=== PATIENT | female | born 1940 | race Caucasian/White ===

== ENCOUNTER 2022-10-03 20:07 | Emergency (ER) | payer OTHER ==
--- OUTSIDE RECORDS SUMMARY | 2022-10-03 20:14 | XMS REPORT | Continuity of Care Document ---
:1940 Author Organization [facility] t Address [address] [place] [address] Care Team Providers Name Role Phone [phone] Primary Care Physician Unavailable Smith Alcala Attending Clinician Unavailable BOZENA BERNAL Attending Clinician Unavailable BOZENA BERNAL Attending Clinician Unavailable Mary Martinez MA Attending Clinician Unavailable Soco [place] LVN Attending Clinician Unavailable Doctor Unassigned, [place] Attending Clinician Unavailable LINDY GOVEA Attending Clinician Unavailable RADHA GR Attending Clinician Unavailable Kamila WINTERS, Darryl Lucero Attending Clinician DRAKE HANSEN Attending Clinician Unavailable Varun Ibarra MD Attending Clinician JUAN JOSE SANCHEZ Attending Clinician Unavailable JUAN JOSE SANCHEZ Admitting Clinician Unavailable Payers Payer Name Policy Type Policy Number Effective Date Expiration Date Nayla coffey [employer] MANAGED [id number] 2022 MEDICARE PPO-TIMOTHY 00:00:00 [employer] MEDICARE PPO [id number] 2021 00:00:00 Problems Condition Condition Condition Status Onset Resolution Last Treating Co mments Source Name Details Category Date Date Treatment Clinician Date SOB SOB Disease Active 2017-04 [facility] (shortness (shortness 0-09 st of breath) of breath) 00:00: [facility] 00 l Coronary Coronary Disease Active [facility] di artery artery 9-19 st disease disease 00:00: [facility]ospita involving involving [place] coronary coronary artery of artery of [place] heart heart without without angina angina pectoris pectoris Coronary Coronary Disease Active [facility] artery artery 9-19 st disease disease 00:00: [facility]ospita involving involving 00 [place] coronary coronary artery of artery of [place] heart heart without without angina angina pectoris pectoris Transient Transient Disease Active [facility] cerebral cerebral 9-19 st ischemia ischemia 00:00: Hospit a 00 l Paroxysmal Paroxysmal Disease Active M [facility] atrial atrial 6-23 st fibrillati fibrillati 00:00: [facility] on on 00 l CAD in CAD in Disease Active [facility] [place] 6-20 st artery artery 00:00: Hospita 00 l PAD PAD Disease Active [facility] (periphera (periphera 6-20 st l artery l artery 00:00: Hospit a disease) disease) 00 l Atrial Atrial Disease Active 2015-04 [facility] fibrillati fibrillati 0-07 st on on 00:00: Hospita 00 l Coronary Coronary Disease Active 2015-04 [facility] di arterioscl arterioscl 0-07 st erosis in erosis in 00:00: [facility] [place] 00 l artery artery Essential Essential Disease Active 2015-04 [facility] hypertensi hypertensi 0-07 st on on 00:00: Hospita 00 l Hyperlipid Hyperlipid Disease Active 2015-04 M [facility] emia emia 0-07 st 00:00: Hospita 00 l History of History of Disease Active 2015-04 M [facility] coronary coronary 0-07 st artery artery 00:00: Hospita stent stent 00 l placement placement Stroke Stroke Disease Active [facility] 6-12 st 00:00: Hospita 00 l Diabetes Diabetes Disease Active Overview: In thodi mellitus mellitus 6- Formattin st type 2, type 2, 00:00: g of this Hospi ta uncontroll uncontroll 00 note l ed, ed, might be without without different complicati complicati from the ons ons original. Overview: ICD10 Diagnosis Term Technical Support Representative Utility Other Other Disease Active [facility] malaise malaise 6-22 st and and 00:00: Hospita fatigue fatigue 00 l Benign Benign Disease Active [facility] essential essential 622 st hypertensi hypertensi 00:00: Ho spita on on 00 l Hyperlipid Hyperlipid Disease Active Overview : [facility] emia emia 6-[address] 00:00: g of this Hospita 00 note l might be different from the original. Overview: ICD10 Diagnosis Term Technical Support Representative Utility Allergies, Adverse Reactions, Alerts Allergy Allergy Status Severity Reaction(s) Onset Inactive Treating Comm ents Source Name Type Date Date Clinician Neomycin Propensi Active Rash 2016-[address] [facility] [address] [facility] adverse [facility]-Dexame reaction 00 Center s Neomycin Propensi Active 2016-[address] [facility] [facility] adverse [facility] Medical reaction 00 Center s Neomycin Propensi Active 2015-04 [facility] -Bacitra ty to 0-07 st jason-Poly adverse 00:00: Hospita myxin reaction 00 l s to drug NO KNOWN Drug Active Univers ALLERGIE Class ity of [facility] Family History Family Member Diagnosis Comments Start Date Stop Date Source Natural father [facility] Natural mother Stroke [facility] Social History Social Habit Start Date Stop Date Quantity Comments Source Gender identity [facility] Sexual orientation [facility] Exposure to 2022-09-01 2022-09-[address] [facility] SARS-CoV-2 (event) 00:00:00 10:41:00 [facility] Tobacco use and 2022-09-11 2022-09-11 Smokeless Universit y of exposure 00:00:00 00:00:00 tobacco non-user [facility] History of Social 2018-12-08 2018-12-[address] function 00:00:00 00:00:00 Hospital Alcohol intake 2018-07-25 2018-07-25 Current Alevism 00:00:00 00:00:00 non-drinker of Hospital alcohol (finding) Sex Ass[birth year] At [birth year] Ale[facility] 00:00:00 00:00:00 Hospital Smoking Status Start Date Stop Date Source Never smoked tobacco [facility] Medications Ordered Filled Start Stop Current Ordering Indication Dosage Frequency Signature Comments Components Source Medication Medication Date Date Medication? Clinician (SIG) Name Name warfarin Yes Take 1 [facility] (COUMADIN) 6-[address] 5 MG tablet 00:00: (5mg) by Ho spita 00 mouth 5 l days per week and 1 1/2 tablets (7.5mg) 2 days per week estradioL 2022-0 Yes [id number] Apply 1g Univers (ESTRACE) 5-26 vaginally ity o f 0.01 % (0.1 00:00: at bedtime [place] mg/gram) 00 2- 3 times Medic al vaginal per week Branch cream estradioL 2022-0 Yes [id number] Apply 1g Univers (ESTRACE) 5-26 vaginally ity o f 0.01 % (0.1 00:00: at bedtime [place] mg/gram) 00 2- 3 times Medic al vaginal per week Branch cream hydrALAZINE 0 Yes 10mg Take 1 Univ ers 10 mg 5-24 tablet by ity of tablet 10:45: mouth [place] 00 every 6 Medical (six) Branch hours. ferrous 2022-0 Yes Take by Univers fumarate/fo 5-24 mouth. ity of lic acid 10:45: [place] (FERROCITE- 00 Medical F ORAL) Branch psyllium Yes [facility] mouth. ity of (METAMUCIL 10:45: [place] ORAL) 00 Medical Branch vit Yes Take by [facility] C/E/Zn/diogo 5-24 mouth. ity of r/lutein/ze 10:45: [place] axan 00 Medical (PRESERVISI Branch ON AREDS-2 ORAL) docosahexae Yes Take by Uni vers noic 5-24 mouth. ity of acid/epa 10:45: [place] (FISH OIL 00 Medical ORAL) Branch PREVACID 30 0 Yes daily Unive rs MG ORAL 5-24 ity of CPDR 10:45: [place] 00 Medical Branch hydrALAZINE 0 Yes 10mg Take 1 Univ ers 10 mg 5-24 tablet by ity of tablet 10:45: mouth [place] 00 every 6 Medical (six) Branch hours. ferrous 2022-0 Yes Take by Univers fumarate/fo 5-24 mouth. ity of lic acid 10:45: [place] (FERROCITE- 00 Medical F ORAL) Branch psyllium Yes Take by Univer s husk 5-24 mouth. ity of (METAMUCIL 10:45: [place] ORAL) 00 Medical Branch vit 0 Yes Take by Univers C/E/Zn/diogo 5-24 mouth. ity of r/lutein/ze 10:45: [place] axan 00 Medical (PRESERVISI Branch ON AREDS-2 ORAL) docosahexae Yes Take by Uni vers noic 5-24 mouth. ity of acid/epa 10:45: [place] (FISH OIL 00 Medical ORAL) Branch PREVACID 30 Yes daily Unive rs MG ORAL 5-24 ity of CPDR 10:45: [place] 00 Medical Branch hydrALAZINE Yes 10mg Take 1 Univ ers 10 mg 5-24 tablet by ity of tablet 10:45: mouth [place] 00 every 6 Medical (six) Branch hours. ferrous Yes Take by Univers fumarate/fo 5-24 mouth. ity of lic acid 10:45: [place] (FERROCITE- 00 Medical F ORAL) Branch psyllium Yes Take by Univer s husk 5-24 mouth. ity of (METAMUCIL 10:45: [place] ORAL) 00 Medical Branch vit Yes Take by Univers C/E/Zn/diogo 5-24 mouth. ity of r/lutein/ze 10:45: [place] axan 00 Medical (PRESERVISI Branch ON AREDS-2 ORAL) docosahexae Yes Take by Uni vers noic 5-24 mouth. ity of acid/epa 10:45: [place] (FISH OIL 00 Medical ORAL) Branch PREVACID 30 Yes daily Unive rs MG ORAL 5-24 ity of CPDR 10:45: [place] 00 Medical Branch docusate Yes Univers 100 mg 5-24 ity of capsule 10:28: [place] [id number] Medical Branch docusate Yes Univers 100 mg 5-24 ity of capsule 10:28: [address] Branch docusate Yes Univers 100 mg 5-24 ity of capsule 10:28: [address] Branch losartan-hy Yes 1{tbl} Take 1 Un alessio drochloroth 5-24 tablet by ity of iazide 10:28: mouth [place] 100-25 mg 11 every Medical per tablet morning. Branc h losartan-hy Yes 1{tbl} Take 1 Un alessio drochloroth 5-24 tablet by ity of iazide 10:28: mouth [place] 100-25 mg 11 every Medical per tablet morning. [facility] losartan-hy Yes 1{tbl} Take 1 Un alessio drochloroth 5-24 tablet by ity of iazide 10:28: mouth [place] 100-25 mg 11 every Medical per tablet morning. [facility] h ARTHROTEC Yes ?dose?bid Uni vers 50 ORAL 5-24 ity of 10:26: [address] LIPITOR 20 Yes daily Univer s MG ORAL TAB 5-24 ity of 10:26: [address] NOVOLOG MIX Yes bid Univer s 70-30 5-24 ity of FLEXPEN SC 10:26: [address] M-VIT ORAL Yes daily Univer s 5-24 ity of 10:26: [address] ENALAPRIL Yes daily Univers MALEATE 20 5-24 ity of MG ORAL TAB 10:26: [address] ASPIRIN 81 Yes daily Univer s MG ORAL TAB 5-24 ity of 10:26: [address] ARTHROTEC Yes ?dose?bid Uni vers 50 ORAL 5-24 ity of 10:26: [address] LIPITOR 20 Yes daily Univer s MG ORAL TAB 5-24 ity of 10:26: [address] NOVOLOG MIX Yes bid Univer s 70-30 5-24 ity of FLEXPEN SC 10:26: [address] M-VIT ORAL Yes daily Univer s 5-24 ity of 10:26: [address] ENALAPRIL Yes daily Univers MALEATE 20 5-24 ity of MG ORAL TAB 10:26: [address] ASPIRIN 81 0 Yes daily Univer s MG ORAL TAB 5-24 ity of 10:26: [address] ARTHROTEC Yes ?dose?bid Uni vers 50 ORAL 5-24 ity of 10:26: [address] LIPITOR 20 Yes daily Univer s MG ORAL TAB 5-24 ity of 10:26: [address] NOVOLOG MIX 2023-0 Yes bid Univer s 70-30 5-24 ity of FLEXPEN SC 10:26: [address] M-VIT ORAL Yes daily Univer s -24 ity of 10:26: [address] ENALAPRIL Yes daily Univers MALEATE 20 5-24 ity of MG ORAL TAB 10:26: [address] ASPIRIN 81 Yes daily Univer s MG ORAL TAB -24 ity of 10:26: [address] estradioL Yes [id number] Apply 1g Univers (ESTRACE) 09-09 vaginally ity o f 0.01 % (0.1 00:00: at bedtime [place] mg/gram) 00 2-3 times Medica l vaginal per week Branch cream estradioL 2022- No [id number] Apply 1g Univers (ESTRACE) 09-09 vaginally ity of 0.01 % (0.1 00:00: 00:00 at bedtime [place] mg/gram) 00 :00 2-3 times Medica l vaginal per week Branch cream estradioL 2022- No [id number] Apply 1g Univers (ESTRACE) 09-09 vaginally ity of 0.01 % (0.1 00:00: 00:00 at bedtime [place] mg/gram) 00 :00 2-3 times Medica l vaginal per week Branch cream doxazosin 4 Yes TAKE 1/2 Un alessio mg tablet 3-20 TABLET BY ity o f 00:00: MOUTH TIMES A Medical DAY Branch doxazosin 4 0 Yes TAKE 1/2 Un alessio mg tablet 3-20 TABLET BY ity o f 00:00: MOUTH TIMES A Medical DAY Branch doxazosin 4 0 Yes TAKE 1/2 Un alessio mg tablet 3-20 TABLET BY ity o f 00:00: MOUTH TIMES A Medical DAY Branch warfarin 5 2022-0 Yes TAKE 1 Unive rs mg tablet 3-10 TABLET BY ity o f 00:00: MOUTH EVERY DAY Medical OR Branch DIRECTED BY DOCTOR OFFICE warfarin 5 2022-0 Yes TAKE 1 Unive rs mg tablet 3-10 TABLET BY ity o f 00:00: MOUTH EVERY DAY Medical OR Branch DIRECTED BY DOCTOR OFFICE warfarin 5 2023-0 Yes TAKE 1 Unive rs mg tablet 3-10 TABLET BY ity o f 00:00: MOUTH [place] 00 EVERY DAY Medical OR Branch DIRECTED BY DOCTOR OFFICE warfarin Yes Take 1 [facility] (COUMADIN) 3-[address] 5 MG tablet 00:00: (5mg) by Ho sp[facility] 00 mouth l daily warfarin 2022- No Take 1 [facility] (COUMADIN) 3-10 06-[address] 5 MG tablet 00:00: 00:00 (5mg) by H ospita 00 :00 mouth l daily warfarin 2021-04 Yes TAKE 1 [facility] (COUMADIN) 2-27 TABLET (5 st 5 MG tablet 00:00: MG TOTAL) H ospita 00 BY MOUTH l DAILY. warfarin 2021-04 Yes TAKE 1 [facility] (COUMADIN) 2-27 TABLET (5 st 5 MG tablet 00:00: MG TOTAL) H ospita 00 BY MOUTH l DAILY. warfarin 2021-04 Yes TAKE 1 [facility] (COUMADIN) 2-27 TABLET (5 st 5 MG tablet 00:00: MG TOTAL) H ospita 00 BY MOUTH l DAILY. warfarin 2021-04 Yes TAKE 1 [facility] (COUMADIN) 2-27 TABLET (5 st 5 MG tablet 00:00: MG TOTAL) H ospita 00 BY MOUTH l DAILY. warfarin 2021-04- No TAKE 1 [facility] (COUMADIN) 2-27 03-10 TABLET (5 st 5 MG tablet 00:00: 00:00 MG TOTAL) Hospita 00 :00 BY MOUTH l DAILY. warfarin 2021-04- No TAKE 1 [facility] (COUMADIN) 2-27 03-10 TABLET (5 st 5 MG tablet 00:00: 00:00 MG TOTAL) Hospita 00 :00 BY MOUTH l DAILY. warfarin 2021- No TAKE 1 [facility] (COUMADIN) 9- 12-27 TABLET (5 st 5 MG tablet 00:00: 00:00 MG TOTAL) Hospita 00 :00 BY MOUTH l DAILY. warfarin 2021- No TAKE 1 [facility] (COUMADIN) 9- 12-27 TABLET (5 st 5 MG tablet 00:00: 00:00 MG TOTAL) Hospita 00 :00 BY MOUTH l DAILY. warfarin 2021- No TAKE 1 [facility] (COUMADIN) 01-09 TABLET (5 st 5 MG tablet 00:00: 00:00 MG TOTAL) Hospita 00 :00 BY MOUTH l DAILY. warfarin 2021- No TAKE 1 [facility] (COUMADIN) 01-09 TABLET (5 st 5 MG tablet 00:00: 00:00 MG TOTAL) Hospita 00 :00 BY MOUTH l DAILY. warfarin 2021- No TAKE 1 [facility] (COUMADIN) 01-09 TABLET (5 st 5 MG tablet 00:00: 00:00 MG TOTAL) Hospita 00 :00 BY MOUTH l DAILY. warfarin 2021- No TAKE 1 [facility] (COUMADIN) 01-09 TABLET (5 st 5 MG tablet 00:00: 00:00 MG TOTAL) Hospita 00 :00 BY MOUTH l DAILY. warfarin 2021- No TAKE 1 [facility] (COUMADIN) 10-13 TABLET (5 st 5 MG tablet 00:00: 00:00 MG TOTAL) Hospita 00 :00 BY MOUTH l DAILY. warfarin 2021- No TAKE 1 [facility] (COUMADIN) 10-13 TABLET (5 st 5 MG tablet 00:00: 00:00 MG TOTAL) Hospita 00 :00 BY MOUTH l DAILY. warfarin 2021- No TAKE 1 [facility] (COUMADIN) 10-13 TABLET (5 st 5 MG tablet 00:00: 00:00 MG TOTAL) Hospita 00 :00 BY MOUTH l DAILY. warfarin 2021- No TAKE 1 [facility] (COUMADIN) 10-13 TABLET (5 st 5 MG tablet 00:00: 00:00 MG TOTAL) Hospita 00 :00 BY MOUTH l DAILY. warfarin 2021- No TAKE 1 [facility] (COUMADIN) 10-13 TABLET (5 st 5 MG tablet 00:00: 00:00 MG TOTAL) Hospita 00 :00 BY MOUTH l DAILY. warfarin 2021- No TAKE 1 [facility] (COUMADIN) 10-13 TABLET (5 st 5 MG tablet 00:00: 00:00 MG TOTAL) Hospita 00 :00 BY MOUTH l DAILY. warfarin 2021- No 5mg QD Take 1 [facility] (COUMADIN) 07-18 tablet (5 st 5 MG tablet 00:00: 00:00 mg total) Hospita 00 :00 by mouth l daily. Take 1 tablet (5mg) by mouth daily for 30 days. warfarin 2021-0 2021- No 5mg QD Take 1 [facility] (COUMADIN) 07-18 tablet (5 st 5 MG tablet 00:00: 00:00 mg total) Hospita 00 :00 by mouth l daily. Take 1 tablet (5mg) by mouth daily for 30 days. warfarin 2021-0 2021- No 5mg QD Take 1 [facility] (COUMADIN) 07-18 tablet (5 st 5 MG tablet 00:00: 00:00 mg total) Hospita 00 :00 by mouth l daily. Take 1 tablet (5mg) by mouth daily for 30 days. warfarin 2021-2021- No 5mg QD Take 1 [facility] (COUMADIN) 07-18 tablet (5 st 5 MG tablet 00:00: 00:00 mg total) Hospita 00 :00 by mouth l daily. Take 1 tablet (5mg) by mouth daily for 30 days. warfarin 2021- No 5mg QD Take 1 [facility] (COUMADIN) 07-18 tablet (5 st 5 MG tablet 00:00: 00:00 mg total) Hospita 00 :00 by mouth l daily. Take 1 tablet (5mg) by mouth daily for 30 days. warfarin 2021-2021- No 5mg QD Take 1 [facility] (COUMADIN) 07-18 tablet (5 st 5 MG tablet 00:00: 00:00 mg total) Hospita 00 :00 by mouth l daily. Take 1 tablet (5mg) by mouth daily for 30 days. warfarin 2021-0 2021- No TAKE 1 [facility] (COUMADIN) 04-[address] 5 MG tablet 00:00: 00:00 MOUTH [facility] 00 :00 EVERY DAY l DIRECTED warfarin 2021-0 2021- No TAKE 1 [facility] (COUMADIN) 04-[address] 5 MG tablet 00:00: 00:00 MOUTH [facility] 00 :00 EVERY DAY l DIRECTED warfarin 2022021- No TAKE 1 [facility] (COUMADIN) 04-[address] 5 MG tablet 00:00: 00:00 MOUTH [facility] 00 :00 EVERY DAY l DIRECTED warfarin 2021- No TAKE 1 [facility] (COUMADIN) 04-[address] 5 MG tablet 00:00: 00:00 MOUTH [facility] 00 :00 EVERY DAY l DIRECTED docusate 2020-04 Yes 100mg Q.5D Take 100 Meth jose enrique sodium 1-[address] (COLACE) 11:25: mouth 2 Hospit a 100 MG 02 (two) l capsule times a day. multivitami 2020-04 Yes 1{tbl} QD Take 1 Me thodi n with 1-[address] minerals 11:25: mouth Hospita tablet 02 daily. l cyanocobala 2020-[address] [facility] di min, 1-[address] vitamin 11:25: tongue. Hospita B-12, 02 l (VITAMIN B-12) 2,500 mcg tablet, sublingual docusate 2020-04 Yes 100mg Q.5D Take 100 Meth jose enrique sodium 1-[address] (COLACE) 11:25: mouth 2 Hospit a 100 MG 02 (two) l capsule times a day. multivitami 2020-04 Yes 1{tbl} QD Take 1 Me thodi n with 1-[address] minerals 11:25: mouth Hospita tablet 02 daily. l cyanocobala 2020-[address] [facility] di min, 1-[address] vitamin 11:25: tongue. Hospita B-12, 02 l (VITAMIN B-12) 2,500 mcg tablet, sublingual docusate 2020-04 Yes 100mg Q.5D Take 100 Meth jose enrique sodium 1-[address] (COLACE) 11:25: mouth 2 Hospit a 100 MG 02 (two) l capsule times a day. multivitami 2020-04 Yes 1{tbl} QD Take 1 Me thodi n with 1-[address] minerals 11:25: mouth Hospita tablet 02 daily. l cyanocobala 2020-[address] [facility] di min, 1-[address] vitamin 11:25: tongue. Hospita B-12, 02 l (VITAMIN B-12) 2,500 mcg tablet, sublingual docusate 2020-04 Yes 100mg Q.5D Take 100 Meth jose enrique sodium 1-[address] (COLACE) 11:25: mouth 2 Hospit a 100 MG 02 (two) l capsule times a day. multivitami 2020-04 Yes 1{tbl} QD Take 1 Me thodi n with 1-[address] minerals 11:25: mouth Hospita tablet 02 daily. l cyanocobala 2020-[address] [facility] di min, 1-[address] vitamin 11:25: tongue. Hospita B-12, 02 l (VITAMIN B-12) 2,500 mcg tablet, sublingual docusate 2020-04 Yes 100mg Q.5D Take 100 Meth jose enrique sodium 1-[address] (COLACE) 11:25: mouth 2 Hospit a 100 MG 02 (two) l capsule times a day. multivitami 2020-04 Yes 1{tbl} QD Take 1 Me thodi n with 1-[address] minerals 11:25: mouth Hospita tablet 02 daily. l cyanocobala 2020-[address] [facility] di min, 1-[address] vitamin 11:25: tongue. Hospita B-12, 02 l (VITAMIN B-12) 2,500 mcg tablet, sublingual docusate 2020-04 Yes 100mg Q.5D Take 100 Meth jose enrique sodium 1-[address] (COLACE) 11:25: mouth 2 Hospit a 100 MG 02 (two) l capsule times a day. multivitami 2020-04 Yes 1{tbl} QD Take 1 Me thodi n with 1-[address] minerals 11:25: mouth Hospita tablet 02 daily. l cyanocobala 2020-[address] [facility] di min, 1-[address] vitamin 11:25: tongue. Hospita B-12, 02 l (VITAMIN B-12) 2,500 mcg tablet, sublingual hydroCHLORO 2020-04 Yes 25mg QD Take 25 mg [facility] thiazide 1-[address] (HYDRODIURI 11:22: daily. [facility] L) 25 MG 54 l tablet hydroCHLORO 2020-04 Yes 25mg QD Take 25 mg [facility] thiazide 1-[address] (HYDRODIURI 11:22: daily. [facility] L) 25 MG 54 l tablet hydroCHLORO 2020-04 Yes 25mg QD Take 25 mg [facility] thiazide 1-[address] (HYDRODIURI 11:22: daily. [facility] L) 25 MG 54 l tablet hydroCHLORO 2020-04 Yes 25mg QD Take 25 mg [facility] thiazide 1-[address] (HYDRODIURI 11:22: daily. [facility] L) 25 MG 54 l tablet hydroCHLORO 2020-04 Yes 25mg QD Take 25 mg [facility] thiazide 1-[address] (HYDRODIURI 11:22: daily. [facility] L) 25 MG 54 l tablet hydroCHLORO 2020-04 Yes 25mg QD Take 25 mg [facility] thiazide 1-[address] (HYDRODIURI 11:22: daily. [facility] L) 25 MG 54 l tablet diltiazem 2020-04 Yes 240mg QD Take 240 Met hodi CD 1-[address] (CardIZEM 11:22: mouth Hospita CD) 240 MG 10 daily. l 24 hr capsule diltiazem 2020-04 Yes 240mg QD Take 240 Met hodi CD 1-[address] (CardIZEM 11:22: mouth Hospita CD) 240 MG 10 daily. l 24 hr capsule diltiazem 2020-04 Yes 240mg QD Take 240 Met hodi CD 1-[address] (CardIZEM 11:22: mouth Hospita CD) 240 MG 10 daily. l 24 hr capsule diltiazem 2020-04 Yes 240mg QD Take 240 Met hodi CD 1-[address] (CardIZEM 11:22: mouth Hospita CD) 240 MG 10 daily. l 24 hr capsule diltiazem 2020-04 Yes 240mg QD Take 240 Met hodi CD 1-[address] (CardIZEM 11:22: mouth Hospita CD) 240 MG 10 daily. l 24 hr capsule diltiazem 2020-04 Yes 240mg QD Take 240 Met hodi CD 1-[address] (CardIZEM 11:22: mouth Hospita CD) 240 MG 10 daily. l 24 hr capsule losartan 2020-04 Yes [facility] (COZAAR) 0-26 st 100 MG 00:00: Hospita tablet 00 l Ferrocite 2020-04 Yes [facility] 324 mg (106 0-26 st mg iron) 00:00: Hospita tablet 00 l atorvastati 2020-04 Yes Method i n (LIPITOR) 0-26 st 80 MG 00:00: Hospita tablet 00 l losartan 2020-04 Yes [facility] (COZAAR) 0-26 st 100 MG 00:00: Hospita tablet 00 l Ferrocite 2020-04 Yes [facility] 324 mg (106 0-26 st mg iron) 00:00: Hospita tablet 00 l atorvastati 2020-04 Yes Method i n (LIPITOR) 0-26 st 80 MG 00:00: Hospita tablet 00 l losartan 2020-04 Yes [facility] (COZAAR) 0-26 st 100 MG 00:00: Hospita tablet 00 l Ferrocite 2020-04 Yes [facility] 324 mg (106 0-26 st mg iron) 00:00: Hospita tablet 00 l atorvastati 2020-04 Yes Method i n (LIPITOR) 0-26 st 80 MG 00:00: Hospita tablet 00 l losartan 2020-04 Yes [facility] (COZAAR) 0-26 st 100 MG 00:00: Hospita tablet 00 l Ferrocite 2020-04 Yes [facility] 324 mg (106 0-26 st mg iron) 00:00: Hospita tablet 00 l atorvastati 2020-04 Yes Method i n (LIPITOR) 0-26 st 80 MG 00:00: Hospita tablet 00 l losartan 2020-04 Yes [facility] (COZAAR) 0-26 st 100 MG 00:00: Hospita tablet 00 l Ferrocite 2020-04 Yes [facility] 324 mg (106 0-26 st mg iron) 00:00: Hospita tablet 00 l atorvastati 2020-04 Yes Method i n (LIPITOR) 0-26 st 80 MG 00:00: Hospita tablet 00 l losartan 2020-04 Yes [facility] (COZAAR) 0-26 st 100 MG 00:00: Hospita tablet 00 l Ferrocite 2020-04 Yes [facility] 324 mg (106 0-26 st mg iron) 00:00: Hospita tablet 00 l atorvastati 2020-04 Yes [facility] i n (LIPITOR) 0-26 st 80 MG 00:00: Hospita tablet 00 l warfarin 2021-1 2022- No TAKE 1 [facility] (COUMADIN) 0-14 -[address] 5 MG tablet 00:00: 00:00 MOUTH [facility] 00 :00 EVERY DAY l DIRECTED warfarin 2020-04- No TAKE 1 [facility] (COUMADIN) 0-14 -[address] 5 MG tablet 00:00: 00:00 MOUTH [facility] 00 :00 EVERY DAY l DIRECTED warfarin 2020-04- No TAKE 1 [facility] (COUMADIN) 0-14 -[address] 5 MG tablet 00:00: 00:00 MOUTH [facility] 00 :00 EVERY DAY l DIRECTED lansoprazol 2020-04 Yes Method i e 0-13 st (PREVACID) 00:00: Hospita 30 MG 00 l capsule lansoprazol 2020-04 Yes Method i e 0-13 st (PREVACID) 00:00: Hospita 30 MG 00 l capsule lansoprazol 2020-04 Yes Method i e 0-13 st (PREVACID) 00:00: Hospita 30 MG 00 l capsule lansoprazol 2020-04 Yes Method i e 0-13 st (PREVACID) 00:00: Hospita 30 MG 00 l capsule lansoprazol 2020-04 Yes Method i e 0-13 st (PREVACID) 00:00: Hospita 30 MG 00 l capsule lansoprazol 2020-04 Yes Method i e 0-13 st (PREVACID) 00:00: Hospita 30 MG 00 l capsule doxazosin 2020-04 Yes 1mg Q.5D 1 mg 2 [facility] i (CARDURA) 2 0-06 (two) st MG tablet 00:00: times a Hospi ta 00 day. l doxazosin 2020-04 Yes 1mg Q.5D 1 mg 2 [facility] i (CARDURA) 2 0-06 (two) st MG tablet 00:00: times a Hospi ta 00 day. l doxazosin 2020-04 Yes 1mg Q.5D 1 mg 2 [facility] i (CARDURA) 2 0-06 (two) st MG tablet 00:00: times a Hospi ta 00 day. l doxazosin 2020-04 Yes 1mg Q.5D 1 mg 2 [facility] (CARDURA) 2 0-06 (two) st MG tablet 00:00: times a Hospi ta 00 day. l doxazosin 2020-04 Yes 1mg Q.5D 1 mg 2 [facility] (CARDURA) 2 0-06 (two) st MG tablet 00:00: times a Hospi ta 00 day. l doxazosin 2020-04 Yes 1mg Q.5D 1 mg 2 [facility] (CARDURA) 2 0-06 (two) st MG tablet 00:00: times a Hospi ta 00 day. l insulin Yes Inject [facility] aspart 1-[facility] protamine-i 09:06: usly 2 [facility] nsulin 20 (two) Center aspart times (NOVOLOG daily with MIX 70/30) breakfast 100 unit/mL and (70-30) dinner. Soln injection dilTIAZem Yes 120mg QD Take [address] [facility] [address] (DILACOR 1-30 mg by [facility] XR) 120 MG 09:06: mouth Medica l 24 hr 20 daily. Center capsule nitrofurant Yes 100mg Q.25D Take [address] [facility] [address] oin 1-30 mg by [facility] (MACRODANTI 09:06: mouth 4 Med ical N) 100 MG 20 (four) Center capsule times daily. clopidogrel Yes 75mg QD Take [address] [facility] (PLAVIX) 75 1-30 by mouth [facility] mg tablet 09:06: daily. Medica l [address] [place] warfarin Yes 5mg QD Take [address] [facility] (COUMADIN) 1-30 by [facility] 5 MG tablet 09:06: daily. [facility] [address] [place] warfarin 2017- Yes 2.5mg QD Take 2.[address] [facility] (COUMADIN) 1-30 mg by [facility] 2.5 MG 09:06: mouth Medical tablet 20 daily. [place] aspirin 81 2017-0 Yes 81mg QD Take [address] MG EC 1-30 by mouth [facility] tablet 09:06: daily. Medical 20 Center lansoprazol 2017-0 Yes 30mg QD Take [address] [facility] e 1-30 by mouth [facility] (PREVACID) 09:06: daily. Medic al 30 MG 20 Center capsule metFORMIN 2017-0 Yes 1000mg Take 1,[address] [facility] (GLUCOPHAGE 1-30 mg by [facility] ) 1000 MG 09:06: mouth 2 Medic al tablet 20 (two) Center times daily with breakfast and dinner. losartan-hy 2018-0 Yes 1{tbl} QD Take [address] droCHLOROth 1-30 tablet by Sarwat noel 09:06: mouth Medical (HYZAAR) 20 daily. Center 100-25 mg per tablet cloNIDine 2017-0 Yes .1mg Q.5D Take 0.[address] [facility] HCl 1-30 mg by [facility] (CATAPRES) 09:06: mouth 2 Medi landon 0.1 MG 20 (two) Center tablet times daily. insulin 2017- Yes Inject [facility] aspart 1-30 subcutaneo [facility] protamine-i 09:06: usly 2 Medi [place] nsulin 20 (two) Center aspart times (NOVOLOG daily with MIX 70/30) breakfast 100 unit/mL and (70-30) dinner. Soln injection dilTIAZem Yes 120mg QD Take [address] [facility] (DILACOR 1-30 mg by [facility] XR) 120 MG 09:06: mouth Medica l 24 hr 20 daily. Center capsule nitrofurant 0 Yes 100mg Q.25D Take [address] [facility] oin 1-30 mg by [facility] (MACRODANTI 09:06: mouth 4 Med ical N) 100 MG 20 (four) Center capsule times daily. clopidogrel Yes 75mg QD Take [address] [facility] (PLAVIX) 75 1-30 by mouth [facility] mg tablet 09:06: daily. Medica l [place] warfarin 0 Yes 5mg QD Take [address] [facility] (COUMADIN) 1-30 by [facility] 5 MG tablet 09:06: daily. [facility]i landon [place] warfarin 2017-0 Yes 2.5mg QD Take 2.[address] [facility] (COUMADIN) 1-30 mg by [facility] 2.5 MG 09:06: mouth Medical tablet 20 daily. Center aspirin 81 2017-0 Yes 81mg QD Take [address] MG EC 1-30 by mouth [facility] tablet 09:06: daily. Medical 20 Center lansoprazol 0 Yes 30mg QD Take [address] [facility] e 1-30 by mouth [facility] (PREVACID) 09:06: daily. Medic al 30 MG 20 Center capsule metFORMIN 0 Yes 1000mg Take 1,[address] [facility] (GLUCOPHAGE 1-30 mg by [facility] ) 1000 MG 09:06: mouth 2 Medic al tablet 20 (two) Center times daily with breakfast and dinner. losartan-hy 2018-0 Yes 1{tbl} QD Take [address] droCHLOROth 1-30 tablet by Sarwat barlowe 09:06: mouth Medical (HYZAAR) 20 daily. Center 100-25 mg per tablet cloNIDine 2018-0 Yes .1mg Q.5D Take 0.[address] [facility] HCl 1-30 mg by [facility] (CATAPRES) 09:06: mouth 2 Medi landon 0.1 MG 20 (two) Center tablet times daily. insulin Yes Inject [facility] aspart 1-30 subcutaneo [facility] protamine-i 09:06: usly 2 Medi landon nsulin 20 (two) Center aspart times (NOVOLOG daily with MIX 70/30) breakfast 100 unit/mL and (70-30) dinner. Soln injection dilTIAZem Yes 120mg QD Take [address] [facility] (DILACOR 1-30 mg by [facility] XR) 120 MG 09:06: mouth Medica l 24 hr 20 daily. Center capsule nitrofurant Yes 100mg Q.25D Take [address] [facility] oin 1-30 mg by [facility] (MACRODANTI 09:06: mouth 4 Med ical N) 100 MG 20 (four) Center capsule times daily. clopidogrel Yes 75mg QD Take [address] [facility] (PLAVIX) 75 1-30 by mouth [facility] mg tablet 09:06: daily. Medica l 20 Center warfarin 0 Yes 5mg QD Take [address] [facility] (COUMADIN) 1-30 by mouth [facility] 5 MG tablet 09:06: daily. Medi landon 20 Center warfarin 2017-0 Yes 2.5mg QD Take 2.[address] [facility] (COUMADIN) 1-30 mg by [facility] 2.5 MG 09:06: mouth Medical tablet 20 daily. Center aspirin 81 2017-0 Yes 81mg QD Take [address] MG EC 1-30 by mouth [facility] tablet 09:06: daily. Medical 20 Center lansoprazol 0 Yes 30mg QD Take [address] [facility] e 1-30 by mouth [facility] (PREVACID) 09:06: daily. Medic al 30 MG 20 Center capsule metFORMIN Yes 1000mg Take 1,[address] [facility] (GLUCOPHAGE 1-30 mg by [facility] ) 1000 MG 09:06: mouth 2 Medic al tablet 20 (two) Center times daily with breakfast and dinner. losartan-hy 2018-0 Yes 1{tbl} QD Take [address] droCHLOROth 1-30 tablet by Sarwat es iazide 09:06: mouth Medical (HYZAAR) 20 daily. Center 100-25 mg per tablet cloNIDine 2018-0 Yes .1mg Q.5D Take 0.[address] [facility] HCl 1-30 mg by [facility] (CATAPRES) 09:06: mouth 2 Medi landon 0.1 MG 20 (two) Center tablet times daily. insulin 2017-[address] [facility] aspart 1-30 subcutaneo [facility] protamine-i 09:06: usly 2 Medi [facility]on nsulin 20 (two) Center aspart times (NOVOLOG daily with MIX 70/30) breakfast 100 unit/mL and (70-30) dinner. Soln injection dilTIAZem 0 Yes 120mg QD Take [address] [facility] (DILACOR 1-30 mg by [facility] XR) 120 MG 09:06: mouth Medica l 24 hr 20 daily. Center capsule nitrofurant 0 Yes 100mg Q.25D Take [address] [facility] oin 1-30 mg by [facility] (MACRODANTI 09:06: mouth 4 Med ical N) 100 MG 20 (four) Center capsule times daily. clopidogrel 0 Yes 75mg QD Take [address] [facility] (PLAVIX) 75 1-30 by mouth [facility] mg tablet 09:06: daily. Medica l [place] warfarin 2017-0 Yes 5mg QD Take [address] [facility] (COUMADIN) 1-30 by mouth [facility] 5 MG tablet 09:06: daily. Medi landon 20 Center warfarin 2018-0 Yes 2.5mg QD Take 2.[address] [facility] [address] (COUMADIN) 1-30 mg by [facility] 2.5 MG 09:06: mouth Medical tablet 20 daily. Center aspirin 81 0 Yes 81mg QD Take [address] MG EC 1-30 by mouth [facility] tablet 09:06: daily. Medical [address] [place] lansoprazol 0 Yes 30mg QD Take [address] [facility] e 1-30 by mouth [facility] (PREVACID) 09:06: daily. Medic al 30 MG 20 Center capsule metFORMIN 2018-0 Yes 1000mg Take 1,[address] [facility] [address] (GLUCOPHAGE 1-30 mg by [facility] ) 1000 MG 09:06: mouth 2 Medic al tablet 20 (two) Center times daily with breakfast and dinner. losartan-hy 2018-0 Yes 1{tbl} QD Take [address] droCHLOROth 1-30 tablet by Sarwat es iazide 09:06: mouth Medical (HYZAAR) 20 daily. Center 100-25 mg per tablet cloNIDine 2017-0 Yes .1mg Q.5D Take 0.[address] HCl 1-30 mg by [facility] (CATAPRES) 09:06: mouth 2 Medi landon 0.1 MG 20 (two) Center tablet times daily. insulin Yes Inject [facility] aspart 1-30 subcutaneo [facility] protamine-i 09:06: usly 2 Medi [facility]on nsulin 20 (two) Center aspart times (NOVOLOG daily with MIX 70/30) breakfast 100 unit/mL and (70-30) dinner. Soln injection dilTIAZem Yes 120mg QD Take [address] [facility] [address] (DILACOR 1-30 mg by [facility] XR) 120 MG 09:06: mouth Medica l 24 hr 20 daily. Center capsule nitrofurant Yes 100mg Q.25D Take [address] [facility] [address] oin 1-30 mg by [facility]ukes (MACRODANTI 09:06: mouth 4 Med ical N) 100 MG 20 (four) Center capsule times daily. aspirin 81 Yes 81mg QD Take [address] MG EC 1-30 by mouth [facility] tablet 09:06: daily. Medical [address] [place] clopidogrel 0 Yes 75mg QD Take [address] [facility] (PLAVIX) 75 1-30 by mouth Luke [facility] mg tablet 09:06: daily. Medica l 20 Center warfarin 20180 Yes 5mg QD Take [address] [facility] (COUMADIN) 1-30 by mouth [facility] 5 MG tablet 09:06: daily. Medi [facility]on 20 Center warfarin 0 Yes 2.5mg QD Take 2.[address] [facility] (COUMADIN) 1-30 mg by [facility] 2.5 MG 09:06: mouth Medical tablet 20 daily. Center lansoprazol 0 Yes 30mg QD Take [address] [facility] e 1-30 by mouth [facility] (PREVACID) 09:06: daily. Medic al 30 MG 20 Center capsule metFORMIN 20180 Yes 1000mg Take 1,[address] [facility] (GLUCOPHAGE 1-30 mg by [facility] ) 1000 MG 09:06: mouth 2 Medic al tablet 20 (two) Center times daily with breakfast and dinner. metFORMIN 20180 Yes 1000mg Take 1,[address] [facility] (GLUCOPHAGE 1-30 mg by [facility] ) 1000 MG 09:06: mouth 2 Medic al tablet 20 (two) Center times daily with breakfast and dinner. losartan-hy 2018-0 Yes 1{tbl} QD Take [address] droCHLOROth 1-30 tablet by Sarwat es iazide 09:06: mouth Medical (HYZAAR) 20 daily. Center 100-25 mg per tablet cloNIDine 2017-0 Yes .1mg Q.5D Take 0.[address] [address] HCl 1-30 mg by [facility] (CATAPRES) 09:06: mouth 2 Medi landon 0.1 MG 20 (two) Center tablet times daily. insulin Yes Inject [facility] aspart 1-30 subcutaneo [facility]ukes protamine-i 09:06: usly 2 Medi [facility]on nsulin 20 (two) Center aspart times (NOVOLOG daily with MIX 70/30) breakfast 100 unit/mL and (70-30) dinner. Soln injection dilTIAZem 0 Yes 120mg QD Take [address] [facility] (DILACOR 1-30 mg by [facility] XR) 120 MG 09:06: mouth Medica l 24 hr 20 daily. Center capsule nitrofurant 0 Yes 100mg Q.25D Take [address] [facility] oin 1-30 mg by [facility]ukes (MACRODANTI 09:06: mouth 4 Med ical N) 100 MG 20 (four) Center capsule times daily. clopidogrel 0 Yes 75mg QD Take [address] [facility] (PLAVIX) 75 1-30 by mouth [facility] mg tablet 09:06: daily. Medica l 20 [facility] warfarin 20180 Yes 5mg QD Take [address] [facility] (COUMADIN) 1-30 by mouth [facility] 5 MG tablet 09:06: daily. Medi [facility]on 20 Center warfarin 0 Yes 2.5mg QD Take 2.[address] [facility] [address] (COUMADIN) 1-30 mg by [facility] 2.5 MG 09:06: mouth Medical tablet 20 daily. Center aspirin 81 20180 Yes 81mg QD Take [address] MG EC 1-30 by mouth [facility] tablet 09:06: daily. [address] lansoprazol Yes 30mg QD Take [address] [facility] e 1-30 by mouth [facility] (PREVACID) 09:06: daily. Medic al 30 MG 20 Center capsule losartan-hy Yes 1{tbl} QD Take [address] droCHLOROth 1-30 tablet by Sarwat es iazide 09:06: mouth Medical (HYZAAR) 20 daily. Center 100-25 mg per tablet cloNIDine Yes .1mg Q.5D Take 0.[address] HCl 1-30 mg by [facility] (CATAPRES) 09:06: mouth 2 Medi landon 0.1 MG 20 (two) Center tablet times daily. insulin Yes Inject [facility] aspart 1-30 subcutaneo [facility] protamine-i 09:06: usly 2 Medi [place]on nsulin 20 (two) Center aspart times (NOVOLOG daily with MIX 70/30) breakfast 100 unit/mL and (70-30) dinner. Soln injection dilTIAZem Yes 120mg QD Take [address] [facility] (DILACOR 1-30 mg by [facility] XR) 120 MG 09:06: mouth Medica l 24 hr 20 daily. Center capsule nitrofurant Yes 100mg Q.25D Take [address] oin 1-30 mg by [facility]ukes (MACRODANTI 09:06: mouth 4 Med ical N) 100 MG 20 (four) Center capsule times daily. clopidogrel Yes 75mg QD Take [address] [facility] (PLAVIX) 75 1-30 by mouth Luke [facility] mg tablet 09:06: daily. Medica l [address] [place] warfarin 0 Yes 5mg QD Take [address] [facility] (COUMADIN) 1-30 by mouth [facility] 5 MG tablet 09:06: daily. Medi landon [place] warfarin 0 Yes 2.5mg QD Take 2.[address] [facility] (COUMADIN) 1-30 mg by [facility] 2.5 MG 09:06: mouth Medical tablet 20 daily. [place] aspirin 81 Yes 81mg QD Take [address] MG EC 1-30 by mouth [facility] tablet 09:06: daily. [address] lansoprazol Yes 30mg QD Take [address] [facility] e 1-30 by mouth [facility] (PREVACID) 09:06: daily. Medic al 30 MG 20 Center capsule metFORMIN Yes 1000mg Take 1,[address] [facility] [facility] (GLUCOPHAGE 1-30 mg by [facility] ) 1000 MG 09:06: mouth 2 Medic al tablet 20 (two) Center times daily with breakfast and dinner. losartan-hy Yes 1{tbl} QD Take [address] droCHLOROth 1-30 tablet by Sarwat es iazide 09:06: mouth Medical (HYZAAR) 20 daily. Center 100-25 mg per tablet cloNIDine Yes .1mg Q.5D Take 0.[address] HCl 1-30 mg by [facility] (CATAPRES) 09:06: mouth 2 Medi [place]on 0.1 MG 20 (two) Center tablet times daily. CALCIUM + D 2016-04 Yes daily Unive rs ORAL 1-15 ity of 15:03: [address] CALCIUM + D 2016-04 Yes daily Unive rs ORAL 1-15 ity of 15:03: [address] CALCIUM + D 2016-04 Yes daily Unive rs ORAL 1-15 ity of 15:03: [address] atorvastati 2016-04 Yes 80mg 1 tablet. U nivers n 80 mg 0-24 ity of tablet 00:00: [address] clopidogrel 2016-04 Yes Univer s 75 mg 0-24 ity of tablet 00:00: [address] atorvastati 2016-04 Yes 80mg 1 tablet. U nivers n 80 mg 0-24 ity of tablet 00:00: [address] clopidogrel 2016-04 Yes Univer s 75 mg 0-24 ity of tablet 00:00: [address] atorvastati 2016-04 Yes 80mg 1 tablet. U nivers n 80 mg 0-24 ity of tablet 00:00: [address] clopidogrel 2016-04 Yes Univer s 75 mg 0-24 ity of tablet 00:00: [address] diltiazem 2016-04 Yes Univers 240 mg 24 0-03 ity of hr tablet 00:00: [address] diltiazem 2016-04 Yes Univers 240 mg 24 0-03 ity of hr tablet 00:00: [address] diltiazem 2017-1 Yes Univers 240 mg 24 0-03 ity of hr tablet 00:00: [address] metFORMIN 2017-0 Yes 1000mg Q.5D Take 1,000 [facility] (GLUCOPHAGE 6-[address] ) 1,000 mg 00:00: mouth 2 [facility] tablet 00 (two) l times a day with meals. metFORMIN 2017-0 Yes 1000mg Q.5D Take 1,000 [facility] (GLUCOPHAGE 6-[address] ) 1,000 mg 00:00: mouth 2 [facility] tablet 00 (two) l times a day with meals. metFORMIN 2017-0 Yes 1000mg Q.5D Take 1,000 [facility] (GLUCOPHAGE 6-[address] ) 1,000 mg 00:00: mouth 2 [facility] tablet 00 (two) l times a day with meals. metFORMIN 2017-0 Yes 1000mg Q.5D Take 1,000 [facility] (GLUCOPHAGE 6-[address] ) 1,000 mg 00:00: mouth 2 [facility] tablet 00 (two) l times a day with meals. metFORMIN 2017-0 Yes 1000mg Q.5D Take 1,000 [facility] (GLUCOPHAGE 6-[address] ) 1,000 mg 00:00: mouth 2 [facility] tablet 00 (two) l times a day with meals. metFORMIN 2017-0 Yes 1000mg Q.5D Take 1,000 [facility] (GLUCOPHAGE 6-[address] ) 1,000 mg 00:00: mouth 2 [facility] tablet 00 (two) l times a day with meals. warfarin 2017-0 Yes 5mg QD Take 5 mg [facility] (COUMADIN) 5-[address] 5 MG tablet 00:00: once [facility] a 00 daily. l Patient is taking 5MG 5 days, 2.5MG 2 days warfarin 2017-0 Yes 5mg QD Take 5 mg [facility] (COUMADIN) 5-[address] 5 MG tablet 00:00: once Hospit a 00 daily. l Patient is taking 5MG 5 days, 2.5MG 2 days warfarin 2017-0 Yes 5mg QD Take 5 mg [facility] (COUMADIN) 5-[address] 5 MG tablet 00:00: once Hospit a 00 daily. l Patient is taking 5MG 5 days, 2.5MG 2 days warfarin 2017-0 Yes 5mg QD Take 5 mg [facility] (COUMADIN) 5-[address] 5 MG tablet 00:00: once Hospit a 00 daily. l Patient is taking 5MG 5 days, 2.5MG 2 days warfarin Yes 5mg QD Take 5 mg [facility] (COUMADIN) 5-[address] 5 MG tablet 00:00: once Hospit a 00 daily. l Patient is taking 5MG 5 days, 2.5MG 2 days warfarin Yes 5mg QD Take 5 mg [facility] (COUMADIN) 5-[address] 5 MG tablet 00:00: once Hospit a 00 daily. l Patient is taking 5MG 5 days, 2.5MG 2 days NOVOLOG MIX Yes INJECT 22 M ethodi 70-30 4-[address] FLEXPEN 100 00:00: TWICE A Hos nettie unit/mL 00 DAY l (70-30) insulin pen NOVOLOG MIX Yes INJECT 22 M ethodi 70-30 4-[address] FLEXPEN 100 00:00: TWICE A Hos nettie unit/mL 00 DAY l (70-30) insulin pen NOVOLOG MIX Yes INJECT 22 M ethodi 70-30 4-[address] FLEXPEN 100 00:00: TWICE A Hos nettie unit/mL 00 DAY l (70-30) insulin pen NOVOLOG MIX Yes INJECT 22 M ethodi 70-30 4-[address] FLEXPEN 100 00:00: TWICE A Hos nettie unit/mL 00 DAY l (70-30) insulin pen NOVOLOG MIX Yes INJECT 22 M ethodi 70-30 4-[address] FLEXPEN 100 00:00: TWICE A Hos nettie unit/mL 00 DAY l (70-30) insulin pen NOVOLOG MIX Yes INJECT 22 M ethodi 70-30 4-[address] FLEXPEN 100 00:00: TWICE A Hos nettie unit/mL 00 DAY l (70-30) insulin pen ERGOCALCIFE Yes use once Un alessio ROL 7 po once a ity of (VITAMIN 00:00: week for 6 Edward as D2) 50,000 00 weeks, Medical UNIT ORAL then once Branc h TAB a month after this. ERGOCALCIFE 2008-0 Yes use once Un alessio ROL 7- po once a ity of (VITAMIN 00:00: week for 6 [place] as D2) 50,000 00 weeks, Medical UNIT ORAL then once Branc h TAB a month after this. ERGOCALCIFE Yes use once Un alessio ROL 7-01 po once a ity of (VITAMIN 00:00: week for 6 [place] as D2) 50,000 00 weeks, Medical UNIT ORAL then once Branc h TAB a month after this. ACTOS 30 MG Yes one po Univ ers ORAL TAB 6-22 daily ity of 00:00: Medical Branch METFORMIN Yes 2 po bid Univ ers 500 MG ORAL 6-22 ity of TAB 00:00: Medical Branch ACTOS 30 MG Yes one po Univ ers ORAL TAB 6-22 daily ity of 00:00: Medical Branch METFORMIN Yes 2 po bid Univ ers 500 MG ORAL 6-22 ity of TAB 00:00: Medical Branch ACTOS 30 MG Yes one po Univ ers ORAL TAB 6-22 daily ity of 00:00: Medical Branch METFORMIN Yes 2 po bid Univ ers 500 MG ORAL 6-22 ity of TAB 00:00: [facility] Branch Immunizations Ordered Immunization Filled Immunization Date Status Commen ts Source Name Name [place] [id number] 2020-06-13 Completed Methodis t MRNA VACCINATION 00:00:[place] [address] 2020-06-13 Completed Methodis t MRNA VACCINATION 00:00:00 [place] [address] 2020-06-13 Completed Methodis t MRNA VACCINATION 00:00:00 [place] [address] 2020-06-13 Completed Methodis t MRNA VACCINATION 00:00:00 [place] [address] 2020-06-13 Completed Methodis t MRNA VACCINATION 00:00:00 [place] [address] 2020-06-13 Completed [facility] 2020[facility] Completed Methodis t MRNA VACCINATION 00:00:00 [place] [address] 2020-05-07 Completed Methodis t MRNA VACCINATION 00:00:00 [place] [address] 2020-05-07 Completed Methodis t [facility] 2020-05[facility]07 Completed Methodis t MRNA VACCINATION 00:00:00 [facility] COVID-19 2020-05-07 Completed Methodis t MRNA VACCINATION 00:00:00 [facility] COVID-19 2020-05-07 Completed Methodis t MRNA VACCINATION 00:00:00 [facility] Vital Signs Vital Name Observation Time Observation Value Comments Source Systolic blood 2022-09-11 16:11:00 172 mm[Hg] [facility] Diastolic blood 2022-09-11 16:11:00 76 mm[Hg] [facility] Heart rate 2022-09-11 16:10:00 87 /min [facility] Body temperature 2022-09-11 16:10:00 36.61 [facility] Respiratory rate 2022-09-11 16:10:00 18 /min [facility] height 2022-09-11 16:10:[address] [facility] Body weight 2022-09-11 16:10:[address] [facility] BMI 2022-09-11 16:10:00 27.69 kg/m2 [facility] Oxygen saturation in 2022-09-11 16:10:00 98 /min [facility] Arterial blood by [facility] Pulse oximetry Branch Procedures Procedure Date / Time Performing Clinician Source Performed PROTHROMBIN TIME WITH 2022-10-01 00:00:00 Provider, Not In [facility] PROTHROMBIN TIME WITH 2022-09-17 00:00:00 Provider, Not In [facility] EXTERNAL PROVIDER 2022-09-09 05:01:00 Doctor Unassigned, No Univ [facility] RECORDS [facility] PROTHROMBIN TIME WITH 2022-09-04 00:00:00 Provider, Not In [facility] PROTHROMBIN TIME WITH 2022-08-24 00:00:00 Provider, Not In [facility] PROTHROMBIN TIME WITH 2022-08-11 00:00:00 Provider, Not In [facility] PROTHROMBIN TIME WITH 2022-07-30 00:00:00 Provider, Not In [facility] PROTHROMBIN TIME WITH 2022-07-27 00:00:00 Provider, Not In [facility] PROTHROMBIN TIME WITH 2022-07-25 00:00:00 Provider, Not In [facility] PROTHROMBIN TIME WITH 2022-07-16 00:00:00 Provider, Not In [facility] PROTHROMBIN TIME WITH 2022-06-26 00:00:00 Provider, Not In [facility] PROTHROMBIN TIME WITH 2022-06-11 00:00:00 Provider, Not In [facility] PROTHROMBIN TIME WITH 2022-06-05 00:00:00 Provider, Not In [facility] PROTHROMBIN TIME WITH 2022-05-18 00:00:00 Provider, Not In [facility] PROTHROMBIN TIME WITH 2022-04-27 00:00:00 Provider, Not In [facility] PROTHROMBIN TIME WITH 2022-03-24 00:00:00 Provider, Not In [facility] PROTHROMBIN TIME WITH 2022-03-09 00:00:00 Provider, Not In [facility] PROTHROMBIN TIME WITH 2022-03-06 00:00:00 Provider, Not In [facility] PROTHROMBIN TIME WITH 2022-02-19 00:00:00 Provider, Not In [facility] PROTHROMBIN TIME WITH 2022-02-02 00:00:00 Provider, Not In [facility] PROTHROMBIN TIME WITH 2022-01-19 00:00:00 Provider, Not In [facility] PROTHROMBIN TIME WITH 2022-01-05 00:00:00 Provider, Not In [facility] PROTHROMBIN TIME WITH 2021-12-26 00:00:00 Provider, Not In [facility] PROTHROMBIN TIME WITH 2021-12-23 00:00:00 Provider, Not In [facility] PROTHROMBIN TIME WITH 2021-12-04 00:00:00 Provider, Not In [facility] PROTHROMBIN TIME WITH 2021-11-13 00:00:00 Provider, Not In [facility] PROTHROMBIN TIME WITH 2021-10-30 00:00:00 Provider, Not In [facility] PROTHROMBIN TIME WITH 2021-10-14 00:00:00 Provider, Not In [facility] PROTHROMBIN TIME WITH 2021-09-28 00:00:00 Provider, Not In [facility] PROTHROMBIN TIME WITH 2021-09-12 00:00:00 Provider, Not In [facility] PROTHROMBIN TIME WITH 2021-08-29 00:00:00 Provider, Not In [facility] PROTHROMBIN TIME WITH 2021-08-18 00:00:00 Provider, Not In [facility] PROTHROMBIN TIME WITH 2021-07-30 00:00:00 Provider, Not In [facility] PROTHROMBIN TIME WITH 2021-07-18 00:00:00 Provider, Not In [facility] PROTHROMBIN TIME WITH 2021-07-11 00:00:00 Provider, Not In [facility] PROTHROMBIN TIME WITH 2021-06-30 00:00:00 Provider, Not In [facility] PROTHROMBIN TIME WITH 2021-06-23 00:00:00 Provider, Not In [facility] PROTHROMBIN TIME WITH 2021-06-11 00:00:00 Provider, Historical [facility] INR PROTHROMBIN TIME WITH 2021-05-27 00:00:00 Provider, Historical [facility] INR CV STRESS TEST NUCLEAR 2021-05-08 21:09:47 [facility] CARDIO NM MYOCARDIAL PERFUSION 2021-05-08 21:09:47 [facility] REST STRESS 1 DAY PROTHROMBIN TIME WITH 2021-05-06 00:00:00 Provider, Historical [facility] INR PROTHROMBIN TIME WITH 2021-04-23 00:00:00 Provider, Historical [facility] INR Plan of Care Planned Activity Planned Date Details Comments Source Future Scheduled 2022-10-01 65+ PNEUMOCOCCAL [facility] Test 17:09:31 VACCINE (1 - PCV) [code = 65+ PNEUMOCOCCAL VACCINE (1 - PCV)] Future Scheduled 2022-10-01 DIABETIC FOOT EXAM [facility] Test 17:09:31 [code = DIABETIC FOOT EXAM] Future Scheduled 2022-10-01 URINE MICROALBUMIN [facility] Test 17:09:31 [code = URINE MICROALBUMIN] Future Scheduled 2022-10-01 SHINGLES VACCINES (1 Met [facility] Test 17:09:31 of 2) [code = SHINGLES VACCINES (1 of 2)] Future Scheduled 2022-10-01 DIABETES: RETINAL EYE [facility] Test 17:09:31 EXAM [code = DIABETES: RETINAL EYE EXAM] Future Scheduled 2022-10-01 COVID-19 VACCINE (3 - [facility] Test 17:09:31 Moderna series) [code = COVID-19 VACCINE (3 - Moderna series)] Future Scheduled 2022-10-01 [facility]INE [facility] 17:09:31 [code = INFLUENZA VACCINE] Future Scheduled 2022-07-16 65+ [facility] 14:40:48 VACCINE (1 - PCV) [code = 65+ PNEUMOCOCCAL VACCINE (1 - PCV)] Future Scheduled 2022-07-16 DIABETIC FOOT EXAM [facility] Test 14:40:48 [code = DIABETIC FOOT EXAM] Future Scheduled 2022-07-16 URINE [facility]CROALBUMIN [facility] Test 14:40:48 [code = URINE MICROALBUMIN] Future Scheduled 2022-07-16 [facility] 14:40:48 of 2) [code = SHINGLES VACCINES (1 of 2)] Future Scheduled 2022-07-16 DIABETES: RETINAL EYE [facility] Test 14:40:48 EXAM [code = DIABETES: RETINAL EYE EXAM] Future Scheduled 2022-07-16 COVID-19 VACCINE (3 - [facility] Test 14:40:48 Booster for Moderna series) [code = COVID-19 VACCINE (3 - Booster for Moderna series)] Future Scheduled 2022-07-16 INFLUENZA VACCINE [facility] 14:40:48 [code = INFLUENZA VACCINE] Future Scheduled 2022-05-03 65+ [facility] 09:46:16 VACCINE (1 - PCV) [code = 65+ PNEUMOCOCCAL VACCINE (1 - PCV)] Future Scheduled 2022-05-03 DIABETIC FOOT EXAM [facility] 09:46:16 [code = DIABETIC FOOT EXAM] Future Scheduled 2022-05-03 URINE MICROALBUMIN [facility] 09:46:16 [code = URINE MICROALBUMIN] Future Scheduled 2022-05-03 SHINGLES VACCINES (1 [facility] 09:46:16 of 2) [code = SHINGLES VACCINES (1 of 2)] Future Scheduled 2022-05-03 DIABETES: RETINAL EYE [facility] 09:46:16 EXAM [code = DIABETES: RETINAL EYE EXAM] Future Scheduled 2022-05-03 COVID-19 VACCINE (3 - [facility] 09:46:16 Booster for Moderna series) [code = COVID-19 VACCINE (3 - Booster for Moderna series)] Future Scheduled 2022-05-03 [facility] 09:46:16 [code = INFLUENZA VACCINE] Future Scheduled 2022-04-23 65+ [facility] 09:25:52 VACCINE (1 - PCV) [code = 65+ PNEUMOCOCCAL VACCINE (1 - PCV)] Future Scheduled 2022-04-23 DIABETIC FOOT EXAM [facility] 09:25:52 [code = DIABETIC FOOT EXAM] Future Scheduled 2022-04-23 URINE [facility]CROALBUMIN [facility] 09:25:52 [code = URINE MICROALBUMIN] Future Scheduled 2022-04-23 [facility]:25[facility]52 of 2) [code = SHINGLES VACCINES (1 of 2)] Future Scheduled 2022-04-23 DIABETES: RETINAL EYE [facility] 09:25:52 EXAM [code = DIABETES: RETINAL EYE EXAM] Future Scheduled 2022-04-23 COVID-19 VACCINE (3 - [facility] 09:25:52 Booster for Moderna series) [code = COVID-19 VACCINE (3 - Booster for Moderna series)] Future Scheduled 2022-04-23 [facility] 09:25:52 [code = INFLUENZA VACCINE] Future Scheduled 2022-04-21 65+ [facility] 09:14:20 VACCINE (1 - PCV) [code = 65+ PNEUMOCOCCAL VACCINE (1 - PCV)] Future Scheduled 2022-04-21 DIABETIC FOOT EXAM [facility] 09:14:20 [code = DIABETIC FOOT EXAM] Future Scheduled 2022-04-21 URINE MICROALBUMIN [facility] 09:14:20 [code = URINE MICROALBUMIN] Future Scheduled 2022-04-21 SHINGLES VACCINES (1 [facility] 09:14:20 of 2) [code = SHINGLES VACCINES (1 of 2)] Future Scheduled 2022-04-21 DIABETES: RETINAL EYE [facility] 09:14:20 EXAM [code = DIABETES: RETINAL EYE EXAM] Future Scheduled 2022-04-21 COVID-19 VACCINE (3 - [facility] 09:14:20 Booster for Moderna series) [code = COVID-19 VACCINE (3 - Booster for Moderna series)] Future Scheduled 2022-04-21 [facility] 09:14:20 [code = INFLUENZA VACCINE] Future Scheduled 2022-04-21 65+ [facility] 09:14:20 VACCINE (1 - PCV) [code = 65+ PNEUMOCOCCAL VACCINE (1 - PCV)] Future Scheduled 2022-04-21 DIABETIC FOOT EXAM [facility] 09:14:20 [code = DIABETIC FOOT EXAM] Future Scheduled 2022-04-21 URINE [facility]CROALBUMIN [facility] 09:14:20 [code = URINE MICROALBUMIN] Future Scheduled 2022-04-21 SHINGLES VACCINES (1 [facility] 09:14:20 of 2) [code = SHINGLES VACCINES (1 of 2)] Future Scheduled 2022-04-21 DIABETES: RETINAL EYE [facility] 09:14:20 EXAM [code = DIABETES: RETINAL EYE EXAM] Future Scheduled 2022-04-21 COVID-19 VACCINE (3 - [facility] 09:14:20 Booster for Moderna series) [code = COVID-19 VACCINE (3 - Booster for Moderna series)] Future Scheduled 2022-04-21 [facility] 09:14:20 [code = INFLUENZA VACCINE] Encounters Start End Encounter Admission Attending Care Care Encounter Source Date/Time Date/Time Type Type Clinicians Facility Department ID 2021-05-14 Outpatient [place], [facility] [id number] Common 12:16:05 Smith [id number] [facility] 2021-05-14 Outpatient [facility] [id number] Common 12:11:55 [id number] [facility] 2022-10-12 2022-10-12 Outpatient R BOZENA BERNAL [facility] [id number] Univers 13:30:00 13:30:00 BOZENA BERNAL [facility] 2022-10-01 2022-10-01 Telephone Juan 1.2.840.1 [id number] 2100 [id number] Methodi 00:00:00 00:00:[address] Mary Kong [address]19.1.[address] 3.430.2.7 Hospit a .3.705455 l .8 2022-09-17 2022-09-17 Telephone Royer, 1.2.840.1 [id number] 2100 [id number] Methodi 00:00:00 00:00:[address] 3.430.2.7 Hospit a .3.472048 l .8 2022-09-11 2022-09-11 Office [facility] 1.2.840.114 [id number] Univers 11:00:00 11:51:18 Visit Bozena FAJARDO 350.1.13.10 i ty of [place] 4.2.7.2.686 Texdennis reddy PROFESSIO [phone] [address] 2022-09-11 2022-09-11 Out[facility] [id number] Univers 11:00:00 11:51:18 BOZENA BERNAL bruce [facility] 2022-09-09 2022-09-09 Outpatient R BOZENA BERNAL [facility] [id number] Univers 11:30:00 11:22:22 BOZENA BERNAL bruce [facility] 2022-09-09 2022-09-09 Orders Doctor RENA 1.2.840.114 [id number] Univers 00:00:00 00:00:00 Only Unassigned, BONITA 350.1.13.10 ity of [place] [facility] 4.2.7.2.686 Edward as [id number] [address] 2022-09-07 2022-09-07 Telephone Juan, 1.2.840.1 [id number] 2100 [id number] Methodi 00:00:00 00:00:[address] Mary Kong 91085.1.[address] 3.430.2.7 Hospit a .3.671337 l .8 2022-08-24 2022-08-24 Telephone Royer, 1.2.840.1 [id number] 2100 [id number] Methodi 00:00:00 00:00:[address] 3.430.2.7 Hospit a .3.042472 l .8 2022-08-11 2022-08-11 Telephone Linton, 1.2.840.1 [id number] 2099 [id number] Methodi 00:00:00 00:00:[address] 3.430.2.7 Hospit a .3.318897 l .8 2022-07-31 2022-07-31 Outpatient RASHEL JEFERSONHASEEB [facility] [id number] 08:19:42 12:39:32 LINDY lucio 2022-07-30 2022-07-30 Telephone [place], 1.2.840.1 [id number] 2099 [id number] Methodi 00:00:00 00:00:[address] 3.430.2.7 Hospit a .3.852809 l .8 2022-07-27 2022-07-27 Telephone Linton, 1.2.840.1 [id number] 2099 [id number] Methodi 00:00:00 00:00:[address] 3.430.2.7 Hospit a .3.955427 l .8 2022-07-27 2022-07-27 Telephone Linton, 1.2.840.1 [id number] 2099 [id number] Methodi 00:00:00 00:00:[address] 3.430.2.7 Hospit a .3.515616 l .8 2022-07-16 2022-07-16 Telephone Linton, 1.2.840.1 [id number] 2099 [id number] Methodi 00:00:00 00:00:[address] 3.430.2.7 Hospit a .3.195543 l .8 2022-07-16 2022-07-16 Telephone L[place], 1.2.840.1 [id number] 2099 [id number] Methodi 00:00:00 00:00:[address] 3.430.2.7 Hospit a .3.051623 l .8 2022-06-262022-06-26 Telephone Juan, 1.2.840.1 [id number] 2099 [id number] Methodi 00:00:00 00:00:00 Mary A [address]2020.1.[address] 3.430.2.7 Hospit a .3.600851 l .8 2022-06-26 2022-06-26 Telephone Juan, 1.2.840.1 [id number] 2099 [id number] Methodi 00:00:00 00:00:00 Mary A [address]29.1.[address] 3.430.2.7 Hospit a .3.439137 l .8 2022-06-11 2022-06-11 Telephone Linton, 1.2.840.1 [id number] 2099 [id number] Methodi 00:00:00 00:00:[address] 3.430.2.7 Hospit a .3.720991 l .8 2022-06-11 2022-06-11 Telephone Royer, 1.2.840.1 [id number] 2099 [id number] Methodi 00:00:00 00:00:[address] 3.430.2.7 Hospit a .3.162673 l .8 2022-06-05 2022-06-05 [facility] RASHEL GR MDA [facility] [id number] MD 10:10:59 11:30:26 RADHA lucio 2022-06-05 2022-06-05 Telephone Juan, 1.2.840.1 [id number] 2099 [id number] Methodi 00:00:00 00:00:00 Mary A [address]051.1.[address] 3.430.2.7 Hospit a .3.004963 l .8 2022-06-05 2022-06-05 Telephone Juan, 1.2.840.1 [id number] 2099 [id number] Methodi 00:00:00 00:00:00 Mary A [address]75.1.[address] 3.430.2.7 Hospit a .3.133978 l .8 2022-05-18 2022-05-18 Telephone Juan, 1.2.840.1 [id number] 2099 [id number] Methodi 00:00:00 00:00:00 Mary A [address].1.[address] 3.430.2.7 Hospit a .3.642990 l .8 2022-05-18 2022-05-18 Telephone Juan, 1.2.840.1 [id number] 2099 [id number] Methodi 00:00:00 00:00:00 Mary A [address]8.1.[address] 3.430.2.7 Hospit a .3.044040 l .8 2022-04-27 2022-04-27 Telephone Royer, 1.2.840.1 [id number] 2099 [id number] Methodi 00:00:00 00:00:[address] 3.430.2.7 Hospit a .3.810997 l .8 2022-04-27 2022-04-27 Telephone L[place], 1.2.840.1 [id number] 2099 [id number] Methodi 00:00:00 00:00:[address] 3.430.2.7 Hospit a .3.549883 l .8 2022-04-13 2022-04-13 Bella Howell 1.2.840.1 [id number] 3266 Methodi 00:00:00 00:00:[address] 3.430.2.7 Hospit a .3.666867 l .8 2022-04-13 2022-04-13 Bella Howell 1.2.840.1 [id number] 8452 Methodi 00:00:00 00:00:[address] 3.430.2.7 Hospit a .3.777190 l .8 2022-03-25 2022-03-25 Telephone [place], 1.2.840.1 [id number] 2099 [id number] Methodi 00:00:00 00:00:[address] 3.430.2.7 Hospit a .3.328393 l .8 2022-03-25 2022-03-25 Telephone [place], 1.2.840.1 [id number] 2099 [id number] Methodi 00:00:00 00:00:[address] 3.430.2.7 Hospit a .3.957580 l .8 2022-03-09 2022-03-09 Telephone [place], 1.2.840.1 [id number] 2099 [id number] Methodi 00:00:00 00:00:[address] 3.430.2.7 Hospit a .3.211149 l .8 2022-03-09 2022-03-09 Telephone [place], 1.2.840.1 [id number] 2099 [id number] Methodi 00:00:00 00:00:[address] 3.430.2.7 Hospit a .3.069809 l .8 2022-03-06 2022-03-06 Telephone [place], 1.2.840.1 [id number] 2099 [id number] Methodi 00:00:00 00:00:[address] 3.430.2.7 Hospit a .3.190325 l .8 2022-03-06 2022-03-06 Telephone [place], 1.2.840.1 [id number] 2099 [id number] Methodi 00:00:00 00:00:[address] 3.430.2.7 Hospit a .3.173371 l .8 2022-02-19 2022-02-19 Telephone Juan, 1.2.840.1 [id number] 2099 604509 Methodi 00:00:00 00:00:00 Mary A [address].1.[address] 3.430.2.7 Hospit a .3.333249 l .8 2022-02-19 2022-02-19 Telephone Juan, 1.2.840.1 [id number] 2099 465204 Methodi 00:00:00 00:00:00 Mary A [address].1.[address] 3.430.2.7 Hospit a .3.749278 l .8 2022-02-02 2022-02-02 Telephone [place], 1.2.840.1 [id number] 2099 [id number] Methodi 00:00:00 00:00:[address] 3.430.2.7 Hospit a .3.729920 l .8 2022-02-02 2022-02-02 Telephone [place], 1.2.840.1 [id number] 2099 108560 Methodi 00:00:00 00:00:[address] 3.430.2.7 Hospit a .3.099280 l .8 2022-01-20 2022-01-20 Telephone Linton, 1.2.840.1 [id number] 2099 837678 Methodi 00:00:00 00:00:[address] 3.430.2.7 Hospit a .3.065584 l .8 2022-01-20 2022-01-20 Telephone [place], 1.2.840.1 [id number] 2099 [id number] Methodi 00:00:00 00:00:[address] 3.430.2.7 Hospit a .3.391023 l .8 2022 2022 Bella Howell, 1.2.840.1 [id number] 069477 5824 Methodi 00:00:00 00:00:[address] 3.430.2.7 Hospit a .3.178730 l .8 2022 2022 Bella Howell, 1.2.840.1 [id number] 531325 0951 Methodi 00:00:00 00:00:[address] 3.430.2.7 Hospit a .3.548073 l .8 2022-01-05 2022-01-05 Telephone Linton, 1.2.840.1 [id number] 2099 [id number] Methodi 00:00:00 00:00:[address] 3.430.2.7 Hospit a .3.745104 l .8 2022-01-05 2022-01-05 Telephone [place], 1.2.840.1 [id number] 2099 [id number] Methodi 00:00:00 00:00:[address] 3.430.2.7 Hospit a .3.048030 l .8 2021-12-26 2021-12-26 Telephone [place], 1.2.840.1 [id number] 2099 700926 Methodi 00:00:00 00:00:[address] 3.430.2.7 Hospit a .3.892972 l .8 2021-12-26 2021-12-26 Telephone [place], 1.2.840.1 [id number] 2099 [id number] Methodi 00:00:00 00:00:[address] 3.430.2.7 Hospit a .3.634899 l .8 2021-12-23 2021-12-23 Telephone [place], 1.2.840.1 [id number] 2099 [id number] Methodi 00:00:00 00:00:[address] 3.430.2.7 Hospit a .3.494388 l .8 2021-12-23 2021-12-23 Telephone [place], 1.2.840.1 [id number] 2099 [id number] Methodi 00:00:00 00:00:[address] 3.430.2.7 Hospit a .3.902015 l .8 2021-12-04 2021-12-04 Telephone [place], 1.2.840.1 [id number] 2099 [id number] Methodi 00:00:00 00:00:[address] 3.430.2.7 Hospit a .3.379612 l .8 2021-12-04 2021-12-04 Telephone [place], 1.2.840.1 [id number] 2099 [id number] Methodi 00:00:00 00:00:[address] 3.430.2.7 Hospit a .3.779645 l .8 2021-11-13 2021-11-13 Telephone Royer, 1.2.840.1 [id number] 2099 [id number] Methodi 00:00:00 00:00:[address] 3.430.2.7 Hospit a .3.258451 l .8 2021-11-13 2021-11-13 Telephone Royer, 1.2.840.1 [id number] 2099 175601 Methodi 00:00:00 00:00:[address] 3.430.2.7 Hospit a .3.755622 l .8 2021-10-30 2021-10-30 Telephone Juan, 1.2.840.1 [id number] 2099 [id number] Methodi 00:00:00 00:00:00 Mary A [address]674.1.[address] 3.430.2.7 Hospit a .3.382741 l .8 2021-10-30 2021-10-30 Telephone Juan, 1.2.840.1 [id number] 2099 [id number] Methodi 00:00:00 00:00:00 Mary A [address]21.1.[address] 3.430.2.7 Hospit a .3.788097 l .8 2021-10-22 2021-10-22 Outpatient RASHEL HANSEN MDA MDA [id number] 11:46:00 11:46:00 DRAKE lucio 2021-10-15 2021-10-15 Outpatient RASHEL HANSEN MDA MDA [id number] 08:14:24 10:37:41 DRAKE lucio 2021-10-14 2021-10-14 Telephone L[place], 1.2.840.1 [id number] 2099 [id number] Methodi 00:00:00 00:00:[address] 3.430.2.7 Hospit a .3.817627 l .8 2021-10-14 2021-10-14 Telephone [place], 1.2.840.1 [id number] 2099 [id number] Methodi 00:00:00 00:00:[address] 3.430.2.7 Hospit a .3.896458 l .8 2021-10-13 2021-10-13 Refill Kamila, 1.2.840.1 [id number] 0791 Methodi 00:00:00 00:00:00 Dar[address] 3.430.2.7 Hospit a .3.594719 l .8 2021-10-13 2021-10-13 Refill Kamila, 1.2.840.1 [id number] 7452 Methodi 00:00:00 00:00:00 Dar[address] 3.430.2.7 Hospit a .3.348175 l .8 2021-09-29 2021-09-29 Telephone Royer, 1.2.840.1 [id number] 2099 [id number] Methodi 00:00:00 00:00:[address] 3.430.2.7 Hospit a .3.678506 l .8 2021-09-12 2021-09-12 Telephone L[place], 1.2.840.1 [id number] 2099 [id number] Methodi 00:00:00 00:00:[address] 3.430.2.7 Hospit a .3.527210 l .8 2021-08-29 2021-08-29 Documentat Juan, 1.2.840.1 [id number] 949 [id number] Methodi 00:00:00 00:00:00 ion Mary A 48598.1.[address] 3.430.2.7 Hospit a .3.041339 l .8 2021-08-18 2021-08-18 Telephone Royer, 1.2.840.1 [id number] 2099 [id number] Methodi 00:00:00 00:00:[address] 3.430.2.7 Hospit a .3.520273 l .8 2021-07-30 2021-07-30 Telephone Juan, 1.2.840.1 [id number] 2099 [id number] Methodi 00:00:00 00:00:00 Mary A [address].1.[address] 3.430.2.7 Hospit a .3.695882 l .8 2021-07-18 2021-07-18 Telephone Juan, 1.2.840.1 [id number] 2099 [id number] Methodi 00:00:00 00:00:00 Mary A [address]42.1.[address] 3.430.2.7 Hospit a .3.877881 l .8 2021-07-11 2021-07-11 Telephone Royer, 1.2.840.1 [id number] 2099 121419 Methodi 00:00:00 00:00:[address] 3.430.2.7 Hospit a .3.740173 l .8 2021-06-30 2021-06-30 Telephone Royer, 1.2.840.1 [id number] 2099 703692 Methodi 00:00:00 00:00:[address] 3.430.2.7 Hospit a .3.189257 l .8 2021-06-26 2021-06-26 Telephone Royer, 1.2.840.1 [id number] 2099 [id number] Methodi 00:00:00 00:00:[address] 3.430.2.7 Hospit a .3.735030 l .8 2021-06-23 2021-06-23 Telephone Royer, 1.2.840.1 [id number] 2099 [id number] Methodi 00:00:00 00:00:[address] 3.430.2.7 Hospit a .3.979633 l .8 2021-06-11 2021-06-11 Telephone Juan, 1.2.840.1 [id number] 2099 [id number] Methodi 00:00:00 00:00:00 Mary A [address]98.1.[address] 3.430.2.7 Hospit a .3.645539 l .8 2021-06-05 2021-06-05 Outpatient RASHEL GR MDA [facility] [id number] 09:01:58 10:09:55 RADHA lucio 2021-05-27 2021-05-27 Telephone Royer, 1.2.840.1 [id number] 2099 [id number] Methodi 00:00:00 00:00:[address] 3.430.2.7 Hospit a .3.950129 l .8 2021-05-06 2021-05-06 Outpatient [facility] [id number] [place] 00:00:00 00:00:[address] DARRYL [address] 2021-05-06 2021-05-06 Telephone Royer, 1.2.840.1 [id number] 2100 [id number] Methodi 00:00:00 00:00:[address] 3.430.2.7 Hospit a .3.134136 l .8 2021-05-06 2021-05-06 Travel 1.2.840.1 1.2.640.416 8311 567173 Methodi 00:00:00 00:00:[address] 3.430.2.7 0.2.7.3.698 Ho spita .3.757067 084.8 l .8 2021-04-23 2021-04-23 Telephone L[place], 1.2.840.1 [id number] 2099 787786 Methodi 00:00:00 00:00:[address] 3.430.2.7 Hospit a .3.106510 l .8 2021-04-22 2021-04-22 Refill Stacey, 1.2.840.1 [id number] 286588 3413 Methodi 00:00:00 00:00:00 Varun Purvis 52196.1.1 [address] 3.430.2.7 Hospit a .3.373599 l .8 2021-03-27 2021-03-27 Outpatient KAMILA [facility] [id number] [place] 00:00:00 00:00:00 DARRYL [address] 2021-03-18 2021-03-18 Outpatient KAMILA [facility] [id number] [place] 00:00:00 00:00:00 DARRYL [address] 2020-06-13 2020-06-13 Outpatient [facility] [id number] [place] 00:00:00 00:00:[address] 2020-05-07 2020-05-07 Outpatient [facility] [id number] [place] 00:00:00 00:00:[address] Results Test Description Test Time Test Comments Results Result Comments Source Prothrombin time with INR 2022-10-01 00:00:00 Test Item Value Reference Range Interpretation Comme nts INR (test code = 31314-8) 2.60 [facility] [id number] 00:00:00 Test Item Value Reference Range Interpretation Comments INR (test code = 97771-2) 2.80 [facility] [id number] 00:00:00 Test Item Value Reference Range Interpretation Comments INR (test code = 43692-5) [facility] [id number] 00:00:00 Test Item Value Reference Range Interpretation Comments INR (test code = 92382-7) [facility] [id number] 00:00:00 Test Item Value Reference Range Interpretation Comments INR (test code = 63636-8) [facility] [id number] 00:00:00 Test Item Value Reference Range Interpretation Comments INR (test code = 63498-5) [facility] [id number] 06:57:00 Test Item Value Reference Range Interpretation Comments POC-GLUCOSE METER 144 mg/dL 70-110 H TESTED AT [facility] 7200 (BEAKER) (test code [place] [facility] [address] [facility] = 1538) [place] [address] POCT-GLUCOSE [id number] 07:09:00 Test Item Value Reference Range Interpretation Comments POC-GLUCOSE METER 141 mg/dL 70-110 H TESTED AT [facility] 7200 (JEWEL) (test code [place] [facility] [address] [facility] = 6213) [place] [address]
[2022-10-03] MEDS ORDERED: ONDANSETRON 4 MG/2 ML VIAL ONE (20:43)
[2022-10-03] MEDS ORDERED: KETOROLAC 30 MG/ML INJ ONE (20:43)
[2022-10-03] MEDS ORDERED: NA CHLORIDE 0.9% 500 ML ONE (20:43)
[2022-10-03 21:08] LABS: Hematocrit 37.3 % (36.0-45.0); Lymphocytes % 7.3 % (15.3-44.8); MPV 8.4 fL (7.6-11.3); RBC Red Blood Cell Count 4.01 M/uL (3.86-4.86)
[2022-10-03 21:20] LABS: Albumin 3.2 g/dL (3.4-5.0); Bilirubin Total 1.2 mg/dL (0.2-1.0); Potassium 3.7 mEq/L (3.5-5.1); Protein, Total 8.1 g/dL (6.4-8.2)
[2022-10-03 22:00] LABS: Specific Gravity 1.019 (1.005-1.030); Urine Bacteria >50 /HPF (<20); Urine Bilirubin NEGATIVE (Negative); Urine Blood 2+ (Negative); Urine Clarity Extremely Turbid (Clear); Urine Color Dark-Yellow (Yellow); Urine Glucose NEGATIVE (Negative); Urine Mucus Slight /HPF (None Seen); Urine Protein 3+ (Negative); Urine RBC >50 /HPF (None Seen); Urine Urobilinogen Normal (Normal); Urine WBC Clump Moderate /HPF (None Seen)
--- NOTE | 2022-10-03 22:14 | RAD REPORT ---
EXAM DESCRIPTION: CT - Stone Protocol - 10/03/2022 10:04 pm CLINICAL HISTORY: Flank pain. FLANK PAIN COMPARISON: Abdomen Pelvis Wo Contrast dated 07/22/2022 TECHNIQUE: Axial images were obtained without oral or IV contrast. Lack of contrast limits solid org an and vascular assessment. The zfosa-yu-yeaq spans the entirety of the system partially obscuring uppermost abdomen and lung bases. Coronal reformatted images were obtained and reviewed. All CT scans are performed using dose optimization technique as appropriate and may include automated exposure control or mA/KV adjustment according to patient size. FINDINGS: The lower lung danielle are clear. Imaged portions of the liver and spleen show no suspicious findings on non-contrast imaging. The panc reas and adrenal glands are normal. No pathologic lymphadenopathy in the abdomen or pelvis. Several calculi are present in the right kidney. Right kidney appears mildly enlarged mild to moderat e perinephric fat stranding. No left-sided stone or hydronephrosis. No bowel obstruction, free air, free fluid or abscess. The appendix is not identified as a discrete s tructure, however, no secondary findings of appendicitis are identified. No significant bony abnormality. IMPRESSION: Right nephrolithiasis is present with surrounding inflammation suggesting pyelonephritis . No hydronephrosis.
--- NOTE | 2022-10-03 23:41 | ER ---
Nurse's Notes [facility] Name: Susannah Goddard Age: 82 yrs Sex: Female : 1940 Arrival Date: 10/03/2022 Time: 20:07 Bed 7 Private MD: Diagnosis: Pyelonephritis acute Presentation: 10/03 20:27 Chief complaint: Patient states: "I think I have a UTI. The burning when I pee started as6 today but I haven't felt good in a few days". Coronavirus screen: At this time, the client does not indicate any symptoms associated with coronavirus-19. Ebola Screen: No symptoms or risks identified at this time. Initial Sepsis Screen: Does the patient meet any 2 criteria? No. Patient's initial sepsis screen is negative. Does the patient have a suspected source of infection? No. Patient's initial sepsis screen is negative. Risk Assessment: Do you want to hurt yourself or someone else? Patient reports no desire to harm self or others. Onset of symptoms was October 03, 2022. 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 - Social history:: Smoking status: Patient denies any tobacco usage or history of. Screenin:01 [facility] ED Fall Risk Assessment (Adult) History of falling in the last 3 months, ll3 including since admission No falls in past 3 months (0 pts) Confusion or Disorientation No (0 pts) Intoxicated or Sedated No (0 pts) Impaired Gait No (0 pts) Mobility Assist Device Used No (0 pt) Altered Elimination No (0 pt) Score/Fall Risk Level 0 - 2 = Low Risk Oriented to surroundings, Maintained a safe environment, Educated pt \\T\\ family on fall prevention, incl call for assistance when getting out of bed. Abuse screen: Denies threats or abuse. Denies injuries from another. Nutritional screening: No deficits noted. Tuberculosis screening: No symptoms or risk factors identified. Assessment: 20:59 General: Appears uncomfortable, Behavior is calm, cooperative. General: Reports chills ll3 for. Pain: Complains of pain in right upper quadrant Pain does not radiate. Pain currently is 5 out of 10 on a pain scale. Quality of pain is described as sharp, Pain began suddenly, Is continuous. Neuro: Level of Consciousness is awake, alert, obeys commands, Oriented to person, place, time, situation. : Reports burning with urination, since this morning. Derm: Skin is pink, warm \\T\\ dry. Vital Signs: 20:27 BP 141 / 79; Pulse 79; Resp 18 S; Temp 98.8(O); Pulse Ox 94% on R/A; Weight 80.74 kg as6 (R); Height 5 ft. 7 in. (R); Pain 6/10; 21:01 BP 180 / 67; Pulse 77; Resp 19; Pulse Ox 93% on R/A; kd3 22:33 Pulse 79; Resp 19; Pulse Ox 92% on R/A; kd3 22:33 BP 152 / 72; kd3 23:34 Pulse 78; Resp 19; Pulse Ox 96% on R/A; kd3 23:52 BP 154 / 70; Pulse 87; Resp 16; Pulse Ox 97% on R/A; kd3 20:27 Body Mass Index 27.88 (80.74 kg, 170.18 cm) as6 20:27 Pain Scale: Adult as6 ED Course: 20:10 Patient arrived in ED. ja2 20:16 Bryan Calvillo PA is PHCP. cp 20:16 Fernando White MD is Attending Physician. cp 20:26 Arm band placed on. as6 20:29 Triage completed. as6 20:59 Initial lab(s) drawn, by me, sent to lab. Inserted saline lock: 20 gauge in right ll3 antecubital area, using aseptic technique. Blood collected. 21:01 Patient has correct armband on for positive identification. Bed in low position. Call ll3 light in reach. Side rails up X 1. Adult w/ patient. 21:43 Urinalysis w/ reflexes Sent. ll3 21:43 Straight cath inserted, using sterile technique, 16 Fr. Specimen obtained. Returned ll3 manuelito urine. Patient tolerated well. 22:05 CT Stone Protocol In Process Unspecified. EDMS 22:33 Marii Torres, LAURE is Primary Nurse. kd3 23:40 Dilan Alcala MD is Referral Physician. cp 23:52 No provider procedures requiring assistance completed. IV discontinued, intact, kd3 bleeding controlled, No redness/swelling at site. Pressure dressing applied. Administered Medications: 20:59 Drug: Ondansetron IVP 4 mg Route: IVP; Site: right antecubital; ll3 23:53 Follow up: Response: No adverse reaction; Nausea is decreased kd3 20:59 Drug: Ketorolac IVP 10 mg 10 mg Route: IVP; Site: right antecubital; ll3 23:53 Follow up: Response: No adverse reaction; Pain is decreased kd3 20:59 Drug: NS 0.9% IV 500 ml Route: IV; Rate: 75 ml/hr; Site: right antecubital; ll3 23:53 Follow up: IV Status: Completed infusion; IV Intake: 200ml kd3 23:40 Drug: Rocephin IV 1 grams Route: IV; Rate: calculated rate; Site: right antecubital; kd3 23:52 Follow up: Response: No adverse reaction; IV Status: Completed infusion kd3 Medication: 22:33 VIS not applicable for this client. kd3 Intake: 23:53 IV: 200ml; Total: 200ml. kd3 Outcome: 23:40 Discharge ordered by MD. cp 23:52 Discharged to home via wheelchair. kd3 23:52 Condition: stable 23:52 Discharge instructions given to patient, family, Instructed on discharge instructions, follow up and referral plans. medication usage, Demonstrated understanding of instructions, follow-up care, medications, Prescriptions given X 1. 23:58 Patient left the ED. kd3 Addendum: 10/06/2022 10:26 Addendum: Culture Results: Positive urine culture. No further action required. Other: a a5 No need for follow-up per YULIYA Valerio. . Bacteria is resistant to, has intermediate sensitivity, or is not tested against prescribed antibiotics. Report given to TONNY for further evaluation and then to oyster floater for follow up with patient. Signatures: Dispatcher [employer] EDGA Jessica Glaser RN RN aa5 Bryan Calvillo PA PA cp Alexander, Jessica ja2 Slawson, Ashby, RN RN as6 Steven Steele, RN RN ll3 Marii Torres, RN RN kd3
--- NOTE | 2022-10-03 23:41 | EDPHYS ---
Physician Documentation [facility] Name: Susannah Goddard Age: 82 yrs Sex: Female : 1940 Arrival Date: 10/03/2022 Time: 20:07 Bed 7 Private MD: ED Physician Fernando White HPI: 10/03 20:35 This 82 yrs old Female presents to ER via Wheelchair with complaints of Pain With cp Urination. 20:35 The patient presents with urinary symptoms, dysuria, frequency. Onset: The cp symptoms/episode began/occurred this morning. 20:35 Associated signs and symptoms: Pertinent positives: flank pain, Pertinent negatives: cp diarrhea, fever, vomiting. 20:35 Severity of symptoms: in the emergency department the symptoms are unchanged. 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 - Social history:: Smoking status: Patient denies any tobacco usage or history of. ROS: 20:40 Constitutional: Negative for body aches, chills, fever, poor PO intake. cp 20:40 : Positive for urinary symptoms, flank pain. cp 20:40 Eyes: Negative for injury, pain, redness, and discharge. cp 20:40 Cardiovascular: Negative for chest pain, edema, palpitations. 20:40 Respiratory: Negative for cough, shortness of breath, wheezing. 20:40 Abdomen/GI: Positive for abdominal pain, Negative for vomiting, diarrhea, constipation, black/tarry stool. 20:40 Neuro: Negative for altered mental status, dizziness, headache, weakness. 20:40 All other systems are negative. Exam: 20:45 Constitutional: The patient appears in no acute distress, alert, awake, cp non-diaphoretic, non-toxic, well developed, well nourished. 20:45 Head/Face: Normocephalic, atraumatic. cp 20:45 Eyes: Periorbital structures: appear normal, Conjunctiva: normal, no exudate, no injection, Sclera: no appreciated abnormality, Lids and lashes: appear normal, bilaterally. 20:45 ENT: External ear(s): are unremarkable, Nose: is normal, Mouth: Lips: moist, Oral mucosa: pink and intact, moist, Posterior pharynx: is normal, airway is patent, no erythema, no exudate. 20:45 Neck: ROM/movement: is normal, is supple, without pain, no range of motions limitations. 20:45 Chest/axilla: Inspection: normal. 20:45 Cardiovascular: Rate: normal, Rhythm: regular, Edema: is not appreciated, JVD: is not appreciated. 20:45 Respiratory: the patient does not display signs of respiratory distress, Respirations: normal, no use of accessory muscles, no retractions, labored breathing, is not present, Breath sounds: are clear throughout, no decreased breath sounds, no stridor, no wheezing. 20:45 Abdomen/GI: Inspection: abdomen appears normal, Bowel sounds: active, all quadrants, Palpation: soft, in all quadrants, mild abdominal tenderness, in the right upper quadrant and right lower quadrant, rebound tenderness, is not appreciated, involuntary guarding, is not appreciated. 20:45 Back: CVA tenderness, that is mild, is noted on the right. 20:45 Neuro: Orientation: to person, place \T\ time. Mentation: is normal, Motor: moves all fours, strength is normal, Sensation: is normal. Vital Signs: 20:27 BP 141 / 79; Pulse 79; Resp 18 S; Temp 98.8(O); Pulse Ox 94% on R/A; Weight 80.74 kg as6 (R); Height 5 ft. 7 in. (R); Pain 6/10; 21:01 BP 180 / 67; Pulse 77; Resp 19; Pulse Ox 93% on R/A; kd3 22:33 Pulse 79; Resp 19; Pulse Ox 92% on R/A; kd3 22:33 BP 152 / 72; kd3 23:34 Pulse 78; Resp 19; Pulse Ox 96% on R/A; kd3 23:52 BP 154 / 70; Pulse 87; Resp 16; Pulse Ox 97% on R/A; kd3 20:27 Body Mass Index 27.88 (80.74 kg, 170.18 cm) as6 20:27 Pain Scale: Adult as6 MDM: 20:19 Patient medically screened. cp 21:00 Differential diagnosis: kidney stone, urinary tract infection, cholelithiasis, cp cholecystitis, sepsis, pyelonephritis. 23:39 Data reviewed: vital signs, nurses notes, lab test result(s), radiologic studies, CT cp scan. ED course: VSS. Admission discussed and offered. Patient would like to try outpatient treatment with oral antibiotics and will return to ED worsening symptoms. 10/03 20:32 Order name: CBC with Diff; Complete Time: 21:27 10/03 21:28 Interpretation: Normal except: WBC 13.60; ADAM% 85.1; LYM% 7.3; NEUT A 11.6. 10/03 20:32 Order name: CMP; Complete Time: 21:27 10/03 21:28 Interpretation: Normal except: GLUC 169; BUN 25; GFR 57; ALK 118; BILIT 1.2; ALB 3.2; cp GLOB 4.9; A/G 0.7. 10/03 20:32 Order name: Lipase; Complete Time: 21:27 10/03 20:32 Order name: Urinalysis w/ reflexes; Complete Time: 22:25 10/03 22:25 Interpretation: Reviewed. 10/03 22:03 Order name: Urine Culture EDSC 10/03 22:44 Order name: Blood Culture Adult (2) 10/03 22:44 Order name: Lactate w/ 2H reflex if indic.; Complete Time: 23:29 10/03 23:29 Interpretation: Reviewed. 10/03 20:54 Order name: CT Stone Protocol; Complete Time: 22:25 10/03 20:32 Order name: IV Saline Lock; Complete Time: 20:59 10/03 20:32 Order name: Labs collected and sent; Complete Time: 20:59 10/03 22:42 Order name: PO challenge; Complete Time: 23:30 cp Administered Medications: 20:59 Drug: Ondansetron IVP 4 mg Route: IVP; Site: right antecubital; ll3 23:53 Follow up: Response: No adverse reaction; Nausea is decreased kd3 20:59 Drug: Ketorolac IVP 10 mg 10 mg Route: IVP; Site: right antecubital; ll3 23:53 Follow up: Response: No adverse reaction; Pain is decreased kd3 20:59 Drug: NS 0.9% IV 500 ml Route: IV; Rate: 75 ml/hr; Site: right antecubital; ll3 23:53 Follow up: IV Status: Completed infusion; IV Intake: 200ml kd3 23:40 Drug: Rocephin IV 1 grams Route: IV; Rate: calculated rate; Site: right antecubital; kd3 23:52 Follow up: Response: No adverse reaction; IV Status: Completed infusion kd3 Disposition: 10/04 00:16 Co-signature as Attending Physician, Fernando White MD I agree with the assessment sp4 and plan of care. I reviewed the patient's care provided by the Advanced Practice Provider and agree with the diagnosis and treatment plan. Disposition Summary: 10/03/22 23:40 Discharge Ordered Location: Home cp Problem: new cp Symptoms: have improved cp Condition: Stable cp Diagnosis - Pyelonephritis acute cp Followup: cp - With: Dilan Alcala MD - When: 2 - 3 days - Reason: Recheck today's complaints Discharge Instructions: - Discharge Summary Sheet cp - Pyelonephritis, Adult cp Forms: - Medication Reconciliation Form cp - Thank You Letter cp - Antibiotic Education cp - Prescription Opioid Use cp Prescriptions: - cefpodoxime 200 mg Oral Tablet - take 1 tablet by ORAL route every 12 hours for 10 days with food; 20 tablet; cp Refills: 0, Product Selection Permitted Signatures: Dispatcher [employer] EDMS Bryan Calvillo PA PA cp Deng Wiggins RN RN [email or web address] Steven Steele RN RN [id number] Marii Torres RN RN kd3 Fernando White MD MD sp4 Corrections: (The following items were deleted from the chart) 10/03 20:53 20:05 This 82 yrs old Female presents to ER via Wheelchair with complaints of Pain With cp Urination. cp 10/04 17:30 10/03 20:35 Associated signs and symptoms: Pertinent positives: flank pain, cp cp
[2022-10-03] MEDS ORDERED: CEFTRIAXONE 1000 MG/VIAL ONE (23:42)
[2022-10-03] MEDS ORDERED: NA CHLORIDE 0.9% 50 ML ONE (23:42)
[2022-10-04 00:37] VITALS: TEMP 98.8
[2022-10-04 00:46] VITALS: BP 154/70; O2SAT 97
== END 2022-10-03 23:58 | disposition home or self-care (01) ==
LOC: ER 20:07
DX: N10 Acute pyelonephritis (principal); I10 Essential (primary) hypertension; E11.9 Type 2 diabetes mellitus without complications; I48.91 Unspecified atrial fibrillation; Z86.73 Personal history of transient ischemic attack (TIA), and cerebral infarction without residual deficits
CPT/HCPCS: 96361; 87040 ×2; 87088; 85025; 81001; 87086; 36415; 83605; 83690; 80053; 76377; 74176; 51702; 96375; 96374; 99284; J2405; J7040; J0696; 87077; 87186

== ENCOUNTER → 2023-06-15 | Emergency (ER) | payer OTHER ==
[~2023-06-15] MED LIST: LABETALOL 20 MG/4ML SYRINGE IV ONE; NA CHLORIDE 0.9% 250 ML ONE; NICARDIPINE HCL 25 MG/10 ML IV ONE; PROTHROMBIN COMPLEX CONCENTRATE (HUMAN) 500 UNIT VIAL IV ONE; VITAMIN K (ADULT) 10 MG/ML IVP ONE; VITAMIN K (ADULT) 10 MG/ML ONE
[2023-06-15 10:45] LABS: Absolute Lymphocytes (CBC) 1.6 K/uL (0.7-4.9); Hematocrit 40.4 % (36.0-45.0); Lymphocytes % 21.3 % (15.3-44.8); MCV 89.8 fL (80-100); MPV 8.1 fL (7.6-11.3); Platelets 293 thou/uL (152-406)
--- NOTE | 2023-06-15 10:45 | RAD REPORT ---
EXAM DESCRIPTION: CT - Ct Stroke Brain Wo Cont - 06/15/2023 10:31 am CLINICAL HISTORY: Right-sided weakness COMPARISON: none TECHNIQUE: Computed axial tomography of the head was obtained. All CT scans are performed using dose optimization technique as appropriate and may include automated exposure control or mA/KV adjustment according to patient size. FINDINGS: A 2.4 centimeter bleed left basal ganglia/left internal capsule with surrounding edema The ventricles are normal in caliber. Shift of midline structures 1 millimeter to the right No extra-axial fluid collection is noted. Fluid within the sinuses/ mastoids is not seen. IMPRESSION: 2.4 centimeter bleed left basal ganglia/left internal capsule Nurse Palma of the emergency room was notified at 10:31 a.m. June 15, 2023
[2023-06-15 10:55] LABS: Protime INR 4.28
--- NOTE | 2023-06-15 11:01 | EDPHYS ---
Physician Documentation [facility] Name: Susannah Goddard Age: 83 yrs Sex: Female : 1940 Arrival Date: 06/15/2023 Time: 10:04 Bed 16 Private MD: ED Physician Shanda Lorenzo HPI: 06/15 10:22 This 83 yrs old Female presents to ER via Unassigned with complaints of right leg sp3 weakness. 10:22 83-year-old female with extensive past medical history including prior CVA and sp3 paroxysmal atrial fibrillation currently on Coumadin, hypertension, diabetes, hyperlipidemia now presents to the ED with chief complaint right thigh/leg weakness that she first noticed at approximately 8 AM when she woke up. Last known normal was approximately 10 PM last night. Patient woke up and had the symptoms and was not able to ambulate. She took a 5 mg warfarin and decided to "wait it out". At approximately 9:15 AM activated EMS who brought patient here approximately 10:05 AM. Patient was immediately seen by me and stroke alert activated. Patient denies headache, vision changes, neck pain, dysarthria, memory loss, chest pain, shortness of breath, abdominal pain, nausea, vomiting, diarrhea, syncope, near syncope, rash, other focal neurological deficits, or any other signs or symptoms on ROS at this time.. 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 - Social history:: Smoking status: Patient denies any tobacco usage or history of. Patient/guardian denies using alcohol. ROS: 10:24 Constitutional: Negative for fever, chills, and weight loss, Eyes: Negative for injury, sp3 pain, redness, and discharge, ENT: Negative for injury, pain, and discharge, Neck: Negative for injury, pain, and swelling, Cardiovascular: Negative for chest pain, palpitations, and edema, Respiratory: Negative for shortness of breath, cough, wheezing, and pleuritic chest pain, Abdomen/GI: Negative for abdominal pain, nausea, vomiting, diarrhea, and constipation, Back: Negative for injury and pain, MS/Extremity: Negative for injury and deformity, Skin: Negative for injury, rash, and discoloration, Psych: Negative for depression, anxiety, suicide ideation, homicidal ideation, and hallucinations, Allergy/Immunology: Negative for hives, rash, and allergies, Endocrine: Negative for neck swelling, polydipsia, polyuria, polyphagia, and marked weight changes, Hematologic/Lymphatic: Negative for swollen nodes, abnormal bleeding, and unusual bruising, 10:24 All other systems are negative, Exam: 10:24 Constitutional: This is a well developed, well nourished patient who is awake, alert, sp3 and in no acute distress. Head/Face: Normocephalic, atraumatic. Eyes: Pupils equal round and reactive to light, extra-ocular motions intact. Lids and lashes normal. Conjunctiva and sclera are non-icteric and not injected. Cornea within normal limits. Periorbital areas with no swelling, redness, or edema. ENT: Nares patent. No nasal discharge, no septal abnormalities noted. External auditory canals are clear. Oropharynx with no redness, swelling, or masses, exudates, or evidence of obstruction, uvula midline. Mucous membranes moist. Neck: Trachea midline, no thyromegaly or masses palpated, and no cervical lymphadenopathy. Supple, full range of motion without nuchal rigidity, or vertebral point tenderness. No Meningismus. Chest/axilla: Normal chest wall appearance and motion. Nontender with no deformity. No lesions are appreciated. Cardiovascular: Regular rate and rhythm with a normal S1 and S2. No gallops, murmurs, or rubs. Normal PMI, no JVD. No pulse deficits. Respiratory: Lungs have equal breath sounds bilaterally, clear to auscultation and percussion. No rales, rhonchi or wheezes noted. No increased work of breathing, no retractions or nasal flaring. Abdomen/GI: Soft, non-tender, with normal bowel sounds. No distension or tympany. No guarding or rebound. No evidence of tenderness throughout. Back: No spinal tenderness. No costovertebral tenderness. Full range of motion. Skin: Warm, dry with normal turgor. Normal color with no rashes, no lesions, and no evidence of cellulitis. MS/ Extremity: Pulses equal, no cyanosis. Neurovascular intact. Full, normal range of motion. Psych: Awake, alert, with orientation to person, place and time. Behavior, mood, and affect are within normal limits. 10:24 Neuro: Grossly normal neurological exam with no deficits except for subjective weakness of the quadriceps muscles of the right thigh. Gait was not assessed. Sensory exam is normal. Patient's mental status is also normal. No speech abnormalities noted., 10:43 ECG was reviewed by the Attending Physician. EKG demonstrates atrial fibrillation with sp3 left bundle branch block Vital Signs: 10:06 BP 146 / 132; Pulse 89; Resp 18; Temp 97.7; Pulse Ox 100% on R/A; Weight 74.84 kg (M); nj1 Height 5 ft. 7 in. ; 10:42 Pulse 79; Resp 14; Pulse Ox 98% on R/A; ld1 10:45 BP 200 / 116; ld1 10:54 BP 197 / 89; Pulse 79; Resp 18; Pulse Ox 100% ; nj1 11:11 BP 185 / 85; Pulse 66; iw 11:31 BP 209 / 81; Pulse 65; Resp 19; Pulse Ox 95% on R/A; nj1 11:46 BP 171 / 75; Pulse 70; Resp 18; Pulse Ox 93% ; nj1 10:06 Body Mass Index 25.84 (74.84 kg, 170.18 cm) nj1 NIH Stroke Scale Scores: 10:40 NIHSS Score: 7 nj1 11:40 NIHSS Score: 7 nj1 MDM: 10:08 Patient medically screened. sp3 10:25 Data reviewed: vital signs, nurses notes, EMS record, old medical records, lab test sp3 result(s), EKG, radiologic studies. ED course: 83-year-old female with right thigh weakness symptoms who is concerned about TIA/CVA spectrum. Patient is on warfarin. Differential diagnosis includes TIA, CVA, electrolyte abnormality, primary lower extremity muscle issue, among others. Will obtain CT scan of the head along with angiograms, EKG, laboratory values and general observation with stroke workup pending. Disposition pending workup and patient course.. 10:42 ED course: CT scan demonstrates 2.7 cm intraparenchymal bleed on the left basal ganglia sp3 and internal capsule. Patient is starting to develop mild dysarthria. INR is still pending and we will administer Kcentra and vitamin K IV once laboratory value is received. Blood pressure is being maintained and patient is sitting at a 30 degree angle in the bed. We [place] [facility] [place] warfarin reversal is initiated.. 10:58 ED course: Patient has INR of 4.2 with approximate weight of 180 to 190 pounds. Given sp3 35 units/kg, this comes out to be approximately 2900 units. Prepopulated dosing of 3000 units has been ordered of Kcentra and 10 mg of vitamin K IM. We will initiate transfer to [facility] for further ICU admission and evaluation by neurology.. 11:00 ED course: NIH stroke scale at 7. ED course: Blood pressure being controlled with sp3 labetalol with total of 30 mg given so far. Further as needed doses will be given.. 11:14 ED course: Due to limitation on dosing we will be giving 2000 units of Kcentra which sp3 also follows the comments per protocol which is different than the Kcentra recommendations. Vitamin K will be given IV as well.. 11:16 ED course: Discussed with neuro ICU at [facility] who have accepted this patient.. sp3 06/15 10:14 Order name: Basic Metabolic Panel; Complete Time: 11:08 sp3 06/15 10:14 Order name: CBC with Diff; Complete Time: 10:52 sp3 06/15 10:14 Order name: Hepatic Function; Complete Time: 11:08 sp3 06/15 10:14 Order name: High Sensitivity Troponin; Complete Time: 11:08 sp3 06/15 10:14 Order name: Magnesium; Complete Time: 11: sp3 06/15 10:14 Order name: Protime (+inr); Complete Time: 10:59 sp3 06/15 10:14 Order name: Ptt, Activated; Complete Time: 10:59 sp3 06/15 10:41 Order name: Glucose, Ancillary Testing; Complete Time: 10:52 EDMS 06/15 10:14 Order name: CT Stroke Brain w/o Contrast; Complete Time: 10:52 sp3 06/15 10:14 Order name: Stroke CXR 1 View; Complete Time: 11:20 sp3 06/15 10:14 Order name: EKG; Complete Time: 10:14 sp3 06/15 10:14 Order name: Cardiac monitoring; Complete Time: 10: sp3 06/15 10:14 Order name: EKG - Nurse/Tech; Complete Time: :3 06/15 10:14 Order name: IV Saline Lock; Complete Time: :3 06/15 10:14 Order name: Labs collected and sent; Complete Time: 10: sp3 06/15 10:14 Order name: NPO; Complete Time: : sp3 06/15 10:14 Order name: O2 Per Protocol; Complete Time: : sp3 06/15 10:14 Order name: O2 Sat Monitoring; Complete Time: : sp3 06/15 10:14 Order name: Stroke Swallow Screen; Complete Time: : Administered Medications: 10:48 Drug: Labetalol IV 10 mg IV at calculated rate once Route: IV; Rate: calculated rate; ak1 Site: left forearm; 10:49 Follow up: Response: No adverse reaction; IV Status: Completed infusion; IV Intake: 2ml [facility] 11:00 Drug: Labetalol IV 20 mg IV at calculated rate once Route: IV; Rate: calculated rate; ak1 Site: left forearm; 11:02 Follow up: Response: No adverse reaction; IV Status: Completed infusion; IV Intake: 4ml nj 11:17 Drug: Phytonadione IM 10 mg IM once Route: IM; Site: left vastus lateralis; nj1 11:30 Follow up: Response: No adverse reaction nj1 11:32 Drug: Cardene IV 5 mg/hr IV at calculated rate continuous; 5mg/hr Route: IV; Rate: nj1 calculated rate; Site: left forearm; 11:47 Follow up: Response: No adverse reaction; Blood pressure is lowered; IV Status: nj1 Infusion continued upon transfer; IV Intake: 12ml 11:39 Drug: Kcentra IV 1,000 unit 1,000 unit 3000 units IV at calculated rate once {Note: nj1 Medication bag given to [facility] for administration, Marlene KELSEY received. Ok by Dr Lorenzo..} Route: IV; Rate: calculated rate; Site: left hand; Point of Care Testing: Blood Glucose: : Blood Glucose: 113 mg/dL; nj1 Ranges: Critical Glucose Levels:Adult <50 mg/dl or >400 mg/dl <40 mg/dl or >180 mg/dl Disposition Summary: 06/15/23 11:00 Transfer Ordered Notes: Transfer Location: [facility] sp3 Reason: Higher level of care sp3 Condition: Critical sp3 Problem: new sp3 Symptoms: have worsened sp3 Accepting Physician: HILARIO Stroke Team(06/15/23 12:17) ld1 Diagnosis - Hemorrhagic CVA, 2.7 cm bleed in the left internal capsule area, paresthesia, sp3 dysarthria Forms: - Medication Reconciliation Form sp3 - SBAR form sp3 Critical care time excluding procedures: 11:18 Critical care time: Bedside Care: 15 minutes, Consultation: 10 minutes, Family sp3 Intervention: 10 minutes. Total time: 35 minutes NIH Stroke Scale - NIH Stroke Score Date: 06/15/2023 Time: 10:40 Total Score = 7 10. Dysarthria (speech clarity - read or repeat words) - 0(Normal) 11. Extinction and Inattention (visual/tactile/auditory/spatial/personal) - 0(No abnormality) 1a. Level of Consciousness (LOC) - 0(Alert) 1b. Level of Consciousness (LOC) (Month \\T\\ Age) - 0(Both) 1c. LOC Commands (Open \\T\\ Closes Eyes/Doggy Daycare Activities Director) - 0(Both) 2. Best Gaze (Lateral Gaze Paresis) - 0(Normal) 3. Visual Field Loss - 0(No visual loss) 4. Facial Palsy - 0(Normal) 5a. Left Arm: Motor (10-second hold) - 0(No drift) 5b. Right Arm: Motor (10-second hold) - 2(Drift, some effort against gravity) 6a. Left Leg: Motor (5-second hold - always test supine) - 0(No drift) 6b. Right Leg: Motor (5-second hold - always test supine) - 1(Drift) 7. Limb Ataxia (finger/nose \\T\\ heel/berkowitz - test with eyes open) - 2(Present in two limbs) 8. Sensory Loss (pinprick arms/legs/face) - 1(Mild to moderate loss) 9. Best Language: Aphasia (description/naming/reading) - 1(Mild to moderate aphasia) Initials: nj1 NIH Stroke Scale - NIH Stroke Score Date: 06/15/2023 Time: 11:40 Total Score = 7 10. Dysarthria (speech clarity - read or repeat words) - 0(Normal) 11. Extinction and Inattention (visual/tactile/auditory/spatial/personal) - 0(No abnormality) 1a. Level of Consciousness (LOC) - 0(Alert) 1b. Level of Consciousness (LOC) (Month \\T\\ Age) - 0(Both) 1c. LOC Commands (Open \\T\\ Closes Eyes/Doggy Daycare Activities Director) - 0(Both) 2. Best Gaze (Lateral Gaze Paresis) - 0(Normal) 3. Visual Field Loss - 0(No visual loss) 4. Facial Palsy - 0(Normal) 5a. Left Arm: Motor (10-second hold) - 0(No drift) 5b. Right Arm: Motor (10-second hold) - 2(Drift, some effort against gravity) 6a. Left Leg: Motor (5-second hold - always test supine) - 0(No drift) 6b. Right Leg: Motor (5-second hold - always test supine) - 1(Drift) 7. Limb Ataxia (finger/nose \\T\\ heel/berkowitz - test with eyes open) - 2(Present in two limbs) 8. Sensory Loss (pinprick arms/legs/face) - 1(Mild to moderate loss) 9. Best Language: Aphasia (description/naming/reading) - 1(Mild to moderate aphasia) Initials: nj1 Signatures: Dispatcher [employer] EDMS Marlene Kay RN RN ld1 Shanda Lorenzo MD MD sp3 Dagmar Suazo RN RN nj1 Corrections: (The following items were deleted from the chart) 10:26 10:22 83-year-old female with extensive past medical history including prior sp3 CVA currently on Coumadin, hypertension, diabetes, hyperlipidemia now presents to the ED with chief complaint right thigh/leg weakness that she first noticed at approximately 8 AM when she woke up. Last known normal was approximately 10 PM last night. Patient woke up and had the symptoms and was not able to ambulate. She took a 5 mg warfarin and decided to "wait it out". At approximately 9:15 AM activated EMS who brought patient here approximately 10:05 AM. Patient was immediately seen by me and stroke alert activated. Patient denies headache, vision changes, neck pain, dysarthria, memory loss, chest pain, shortness of breath, abdominal pain, nausea, vomiting, diarrhea, syncope, near syncope, rash, other focal neurological deficits, or any other signs or symptoms on ROS at this time.. sp3 10:37 10:14 Head Angio+CT.RAD.BRZ ordered. EDMS EDMS 10:37 10:14 Neck Angio+CT.RAD.BRZ ordered. EDPR EDMS 10:53 10:42 ED course: CT scan demonstrates 2.7 cm intraparenchymal bleed on the left sp3 parietal lobe. Patient is starting to develop mild dysarthria. INR is still pending and we will administer Kcentra and vitamin K IV once laboratory value is received. Blood pressure is being maintained and patient is sitting at a 30 degree angle in the bed. We will be transferring [place] [facility] [place] warfarin reversal is initiated.. sp3 12:17 11:00 TBD Stroke Team sp3 ld1
--- NOTE | 2023-06-15 11:01 | ER ---
Nurse's Notes [facility] Name: Susannah Goddard Age: 83 yrs Sex: Female : 1940 Arrival Date: 06/15/2023 Time: 10:04 Bed 16 Private MD: Diagnosis: Hemorrhagic CVA, 2.7 cm bleed in the left internal capsule area, paresthesia, dysarthria Presentation: 06/15 10:06 Chief complaint: Patient states: "im having a right side stroke". Pt complains of right nj1 sided weakness, left foot weakness/numbness. 10:06 Coronavirus screen: At this time, the client does not indicate any symptoms associated nj1 with coronavirus-19. Ebola Screen: Patient denies travel to an Ebola-affected area in the 21 days before illness onset. Initial Sepsis Screen: Does the patient meet any 2 criteria? No. Patient's initial sepsis screen is negative. Does the patient have a suspected source of infection? No. Patient's initial sepsis screen is negative. Risk Assessment: Do you want to hurt yourself or someone else? Patient reports no desire to harm self or others. Onset of symptoms was June 15, 2023 at 08:00. 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 - Social history:: Smoking status: Patient denies any tobacco usage or history of. Patient/guardian denies using alcohol. Screenin:41 [facility] ED Fall Risk Assessment (Adult) History of falling in the last 3 months, ld1 including since admission No falls in past 3 months (0 pts). Abuse screen: Denies threats or abuse. Denies injuries from another. Nutritional screening: No deficits noted. Tuberculosis screening: No symptoms or risk factors identified. Bath Swallow Protocol Brief Cognitive Screen What is your name? Normal, Where are you right now? Normal, What year is it? Normal. Oral Mechanism Examination Facial Symmetry: Normal, Motion: Normal, Lip Closure: Normal, 3 oz Water Swallow Challenge: Pt able to drink all water without stopping, coughing, choking or throat clearing: Yes Result: PASS MD Notified: Shanda Lorenzo MD. Assessment: 10:14 Reassessment: Code stroke called. ld1 10:16 Reassessment: Pt to CT scan at this time. Delayed due to patient demanding to see ld1 prior to CT>. 10:35 Reassessment: ERP and quality compliance coordinator at bedside assessing patient. ld1 10:40 General: Appears uncomfortable, Behavior is anxious. Pain: Denies pain. Neuro: Level of nj1 Consciousness is awake, alert, obeys commands, Oriented to person, place, situation, Iron Caster are weak on right Weakness Speech with expressive aphasia noted, Facial symmetry appears normal, Numbness in face, right arm and right leg. 10:40 Cardiovascular: Patient's skin is warm and dry. Rhythm is irregular. Respiratory: nj1 Airway is patent Respiratory effort is even, unlabored. 10:45 Reassessment: Notified ERP of pt BP. See MAR for orders. ld1 11:33 Reassessment: [facility] here to transport patient, report given to Marlene KELSEY. nj1 11:40 Reassessment: Patient is alert, oriented x 3, equal unlabored respirations, skin nj1 warm/dry/pink. Neuro: Level of Consciousness is awake, alert, obeys commands, Oriented to person, place, situation, Iron Caster are weak on right Weakness Speech with expressive aphasia noted, Facial symmetry appears normal, Numbness in face, right arm and right leg. 11:43 Reassessment: Unsuccessful attempt to call report to [facility] at this time. Anju KELSEY states nj1 they are still trying to figure out staffing. They will call back for report. 12:05 Reassessment: [facility] on the phone, wondering if report was given, to. nj1 12:10 Reassessment: Haylee KELSEY, from [facility], on the phone to get report. All questions answered. nj1 Vital Signs: 10:06 BP 146 / 132; Pulse 89; Resp 18; Temp 97.7; Pulse Ox 100% on R/A; Weight 74.84 kg (M); nj1 Height 5 ft. 7 in. ; 10:42 Pulse 79; Resp 14; Pulse Ox 98% on R/A; ld1 10:45 BP 200 / 116; ld1 10:54 BP 197 / 89; Pulse 79; Resp 18; Pulse Ox 100% ; nj1 11:11 BP 185 / 85; Pulse 66; iw 11:31 BP 209 / 81; Pulse 65; Resp 19; Pulse Ox 95% on R/A; nj1 11:46 BP 171 / 75; Pulse 70; Resp 18; Pulse Ox 93% ; nj1 10:06 Body Mass Index 25.84 (74.84 kg, 170.18 cm) nj1 NIH Stroke Scale Scores: 10:40 NIHSS Score: 7 nj1 11:40 NIHSS Score: 7 nj1 ED Course: 10:06 Patient arrived in ED. em1 10:08 Shanda Lorenzo MD is Attending Physician. sp3 10:33 CT Stroke Brain w/o Contrast In Process Unspecified. EDMS 10:40 Patient has correct armband on for positive identification. Bed in low position. Call nj1 light in reach. Side rails up X 1. Adult w/ patient. 10:40 Provided Education on: call light, fall precautions. nj1 10:43 No provider procedures requiring assistance completed. Maintain EMS IV. Dressing ld1 intact. Good blood return noted. Site clean \\T\\ dry. Gauge \\T\\ site: 18G LFA. 10:46 Triage completed. nj1 10:47 Arm band placed on. nj1 11:00 Stroke CXR 1 View In Process Unspecified. EDMS 11:02 initiated transfer to [facility]. bd 11:05 Dagmar Suazo, LAURE is Primary Nurse. nj1 11:15 Inserted saline lock: 20 gauge in left hand, using aseptic technique. nj1 11:47 Patient transferred, IV remains in place. nj1 12:02 pt accepted in transfer to [facility] by dr vaca to rm [id number] admin approval given bd by Fam Martinez. pt transferred by [facility]. Administered Medications: 10:48 Drug: Labetalol IV 10 mg IV at calculated rate once Route: IV; Rate: calculated rate; nj1 Site: left forearm; 10:49 Follow up: Response: No adverse reaction; IV Status: Completed infusion; IV Intake: 2ml nj1 11:00 Drug: Labetalol IV 20 mg IV at calculated rate once Route: IV; Rate: calculated rate; nj1 Site: left forearm; 11:02 Follow up: Response: No adverse reaction; IV Status: Completed infusion; IV Intake: 4ml nj1 11:17 Drug: Phytonadione IM 10 mg IM once Route: IM; Site: left vastus lateralis; nj1 11:30 Follow up: Response: No adverse reaction nj1 11:32 Drug: Cardene IV 5 mg/hr IV at calculated rate continuous; 5mg/hr Route: IV; Rate: nj1 calculated rate; Site: left forearm; 11:47 Follow up: Response: No adverse reaction; Blood pressure is lowered; IV Status: nj1 Infusion continued upon transfer; IV Intake: 12ml 11:39 Drug: Kcentra IV 1,000 unit 1,000 unit 3000 units IV at calculated rate once {Note: nj1 Medication bag given to Lumafit for administration, Marlene KELSEY received. Ok by Dr Lorenzo..} Route: IV; Rate: calculated rate; Site: left hand; Medication: 11:47 VIS not applicable for this client. nj1 Point of Care Testing: Blood Glucose: 10:27 Blood Glucose: 113 mg/dL; nj1 Ranges: Intake: 10:49 IV: 2ml; Total: 2ml. nj1 11:02 IV: 4ml; Total: 6ml. nj1 11:47 IV: 12ml; Total: 18ml. nj1 Outcome: 11:00 ER care complete, transfer ordered by sp3 11:47 Transferred by helicopter to [facility], Transfer form completed. nj1 11:47 Condition: stable nj1 11:47 Instructed on the need for transfer, 12:17 Patient left the ED. ld1 NIH Stroke Scale - NIH Stroke Score Date: 06/15/2023 Time: 10:40 Total Score = 7 10. Dysarthria (speech clarity - read or repeat words) - 0(Normal) 11. Extinction and Inattention (visual/tactile/auditory/spatial/personal) - 0(No abnormality) 1a. Level of Consciousness (LOC) - 0(Alert) 1b. Level of Consciousness (LOC) (Month \\T\\ Age) - 0(Both) 1c. LOC Commands (Open \\T\\ Closes Eyes/Relief Pharmacist) - 0(Both) 2. Best Gaze (Lateral Gaze Paresis) - 0(Normal) 3. Visual Field Loss - 0(No visual loss) 4. Facial Palsy - 0(Normal) 5a. Left Arm: Motor (10-second hold) - 0(No drift) 5b. Right Arm: Motor (10-second hold) - 2(Drift, some effort against gravity) 6a. Left Leg: Motor (5-second hold - always test supine) - 0(No drift) 6b. Right Leg: Motor (5-second hold - always test supine) - 1(Drift) 7. Limb Ataxia (finger/nose \\T\\ heel/berkowitz - test with eyes open) - 2(Present in two limbs) 8. Sensory Loss (pinprick arms/legs/face) - 1(Mild to moderate loss) 9. Best Language: Aphasia (description/naming/reading) - 1(Mild to moderate aphasia) Initials: nj1 NIH Stroke Scale - NIH Stroke Score Date: 06/15/2023 Time: 11:40 Total Score = 7 10. Dysarthria (speech clarity - read or repeat words) - 0(Normal) 11. Extinction and Inattention (visual/tactile/auditory/spatial/personal) - 0(No abnormality) 1a. Level of Consciousness (LOC) - 0(Alert) 1b. Level of Consciousness (LOC) (Month \\T\\ Age) - 0(Both) 1c. LOC Commands (Open \\T\\ Closes Eyes/Relief Pharmacist) - 0(Both) 2. Best Gaze (Lateral Gaze Paresis) - 0(Normal) 3. Visual Field Loss - 0(No visual loss) 4. Facial Palsy - 0(Normal) 5a. Left Arm: Motor (10-second hold) - 0(No drift) 5b. Right Arm: Motor (10-second hold) - 2(Drift, some effort against gravity) 6a. Left Leg: Motor (5-second hold - always test supine) - 0(No drift) 6b. Right Leg: Motor (5-second hold - always test supine) - 1(Drift) 7. Limb Ataxia (finger/nose \\T\\ heel/berkowitz - test with eyes open) - 2(Present in two limbs) 8. Sensory Loss (pinprick arms/legs/face) - 1(Mild to moderate loss) 9. Best Language: Aphasia (description/naming/reading) - 1(Mild to moderate aphasia) Initials: nj1 Signatures: Dispatcher [employer] EDMS Sushila Holder Irene, RN RN Leoncio Machuca em1 Marlene Kay RN RN ld1 Shanda Lorenzo MD MD sp3 Dagmar Suazo RN RN nj1 Corrections: (The following items were deleted from the chart) 12:18 11:43 Reassessment: Unsuccessful attempt to call report to [facility] at this time. nj1 Anju KELSEY states they are still trying to figure out staffing. They will call back for report. nj1
[2023-06-15 11:07] LABS: Albumin 3.1 g/dL (3.4-5.0); Bilirubin Direct 0.4 mg/dL (0-0.2); Bilirubin Indirect, Calculated 0.7 mg/dL (0.2-0.8); Bilirubin Total 1.1 mg/dL (0.2-1.0); Potassium 3.9 mEq/L (3.5-5.1); Protein, Total 8.9 g/dL (6.4-8.2); Troponin High Sensitivity 24.4 pg/mL (<58.9)
--- NOTE | 2023-06-15 11:19 | RAD REPORT ---
EXAM DESCRIPTION: Debbie Single View06/15/2023 10:58 am CLINICAL HISTORY: CVA COMPARISON: 2022 FINDINGS: The lungs appear clear of acute infiltrate. The heart is mildly to moderately enlarged IMPRESSION: No acute abnormalities displayed
[2023-06-15 12:57] VITALS: BP 171/75; TEMP 97.7; O2SAT 93
--- NOTE | 2023-06-15 15:46 | EKG ---
Test Date: 2023-06-15 Test Time: 10:26:26 Buckle Frame Shaper: FRANCE MEASUREMENT RESULTS: Intervals: Rate: 79 PA: QRSD: 160 QT: 432 QTc: 495 [place]: P: PA: QRS: 117 T: 86 INTERPRETIVE STATEMENTS: Atrial fibrillation Right axis deviation Left bundle branch block Abnormal ECG Compared to ECG 11/23/2015 05:54:08 Right-axis deviation now present Electronically Signed On 06-15-23 15:45:30 HAND TENNIS BALL COVERER by Lawrence Recinos
== END ==
LOC: ER 10:04
DX: I61.0 Nontraumatic intracerebral hemorrhage in hemisphere, subcortical (principal); R47.1 Dysarthria and anarthria; R20.2 Paresthesia of skin; I10 Essential (primary) hypertension; I48.91 Unspecified atrial fibrillation; Z79.01 Long term (current) use of anticoagulants; Z86.73 Personal history of transient ischemic attack (TIA), and cerebral infarction without residual deficits
CPT/HCPCS: 93005; 85025; 80048; 36415; 83735; 85610; 82947; 80076; 85730; 84484; 70450; 71045; J7168; J3430; J7050

== ENCOUNTER 2023-06-26 12:45 | Inpatient (IN) | payer OTHER ==
[2023-06-26 14:32] VITALS: BMI 29.0
[2023-06-26] MEDS ORDERED: SIMETHICONE 80 MG CHEWABLE TAB PO PRN (14:39)
[2023-06-26] MEDS ORDERED: GLUCAGON 1 MG/VIAL IM PRN (14:39)
[2023-06-26] MEDS ORDERED: D50W 25 GM/50 ML SYRINGE IV PRN (14:39)
[2023-06-26] MEDS ORDERED: BISACODYL 10 MG RECTAL SUPP PR PRN (14:39)
[2023-06-26] MEDS ORDERED: POLYETHYL GLY 3350 17 GM/DOSE PO PRN (14:39)
[2023-06-26] MEDS: ACETAMINOPHEN 500 MG TAB PO PRN (15:11)
[2023-06-26 19:42] LABS: Specific Gravity 1.012 (1.005-1.030); Urine Bacteria None Seen /HPF (<20); Urine Bilirubin NEGATIVE (Negative); Urine Blood Trace (Negative); Urine Clarity Extremely Turbid (Clear); Urine Color Light-Yellow (Yellow); Urine Culture Reflex Order REFLEXED; Urine Glucose NEGATIVE (Negative); Urine Ketones NEGATIVE (Negative); Urine Micro Reflex YN NO BILL MICROSCOPIC; Urine Mucus Slight /HPF (None Seen); Urine Nitrite NEGATIVE (Negative); Urine Protein 2+ (Negative); Urine RBC <5 /HPF (None Seen); Urine Urobilinogen Normal (Normal); Urine WBC 20-50 /HPF (<5); Urine Yeast (Budding) Occasional /HPF (None Seen)
[2023-06-26] MEDS: SENOSIDES 8.6 MG TAB PO SCH (20:03)
[2023-06-26] MEDS: MAGNESIUM OXIDE 400 MG TAB PO SCH (20:04)
[2023-06-26] MEDS: ATORVASTATIN 80 MG TAB PO SCH (20:05)
[2023-06-26] MEDS: LINEZOLID 600 MG TAB PO SCH (20:06)
[2023-06-26] MEDS: HYDRALAZINE HCL 25 MG TABLET PO SCH (20:16)
[2023-06-26] MEDS: EZETIMIBE 10 MG TAB PO SCH (20:16)
[2023-06-26] MEDS: QUETIAPINE 25 MG TAB PO SCH (20:16)
[2023-06-26] MEDS: LINEZOLID 600 MG TAB PO ONE (21:31)
--- NOTE | 2023-06-26 21:53 | HP ---
Date of Admission: 06/26/2023 Time Of Service: 2:00 p.m. Chief Complaint: "I had a stroke, I bled, and my right side became weak." History Of Present Illness: Ms. Goddard is an 83-year-old, right-handed, patient with a his tory of a prior stroke that affected her right body from which she recovered very well; paroxysmal at rial fibrillation, on Coumadin; hypertension; dyslipidemia; type 2 diabetes mellitus, who came to the emergency department by EMS on the June 15 with right-sided weakness that began several hours pr ior to arriving at the ED. Weakness had started early in the morning and progressed throughout the d ay. Emergency Medical Services found blood pressure was elevated at 216/112 and at the emergency janet m, INR was elevated at 4.2. She was given vitamin K and Kcentra 10 mg. She received labetalol mg total and had a Cardene drip en route to the emergency room. Her CT scan in the emergency r oom identified a 2.7 cm intraparenchymal bleed in the left basal ganglia extending into the left inte rnal capsule and explaining the patient's new onset right face, arm, and leg numbness and weakness in addition to aphasia. The patient was mild to moderate with reduction in speech production and compr ehension. She was admitted and followed in the ICU. Actually weaned off the Cardene drip and at leonarda t time was noted to have right upper extremity tonic-clonic activity with concern for focal status ep ilepticus. However, continuous EEG on the was negative. In addition, she had the episodes of d elirium where she said there were very, very vivid dreams appeared to be real. She had significant a bdominal pain and was evaluated by imaging, which revealed a significant stool burden in the abdomen and in addition, urinalysis showed a urinary tract infection. She was started on bowel movement raul men, which helped and amoxicillin for urinary tract infection. In addition, Rocephin on the June 20. While hospitalized, she had significant bradycardia to the 30s and nicardipine drip was held and sh e received atropine and dopamine drip. Heart rate improved to the 90s. Cardiology evaluated her wit h EKG showing atrial fibrillation. An echocardiogram showed ejection fraction of 55% to 60%. She duarte d slightly low potassium of 3.4. BUN slightly elevated of 43 and glucose 116. As a result of her st roke, she has significant dysphagia along with cognitive issues and had to have a diet modification f or a minced to moist diet with thickened liquids with reduced risk of aspiration and speech to work o n aphasia. Occupational therapy determined that she required maximal assistance for bed mobilization , transfers, and able to assist to sit to stand and try to ambulate. Overall, she is functioning sig nificantly below her prior level of functioning and would require an interdisciplinary approach while being monitored inpatient to maximize her capacity to return towards a baseline level of functioning . In inpatient rehabilitation, she would be at best suited where she can receive 24/7 skilled nursin g and daily physician evaluation along with social group worker evaluation and management for durable med ical equipment needs and to continue therapy potentially via Home Health or is doing well enough on a n outpatient basis. As a result of her complex medical condition, the risk of complications, rehabil itation cannot be safely or effectively performed at a lower level facility such as alf. She was therefore felt to be a great candidate for inpatient rehabilitation. Past Medical History: GE reflux, arthritis, coronary artery disease, history of cancer, diabetes edin litus type 2, myocardial infarction, hypertension, atrial fibrillation, peripheral arterial disease, stroke. Allergies: DEXAMETHASONE, LACTOSE, POLYMYXIN B, AND NEOMYCIN. X-ray And Imaging: CT scan on 06/15/2023 showed a 3.1 x 2.8 x 1.9 acute left basal ganglia hematoma with intraventricular extension. There is no midline shift or herniation. No hydrocephalus. In add ition, there was an age indeterminate subacute to chronic lacunar infarct in the left damien. Magnetic resonance noted should be considered. CT scan done on 06/16/2023 showed parenchymal hemorrhage cent ered in the left basal ganglia appears minimally more prominent in size when compared to previous jose dy. However, is noted to be artifactual in nature. The hemorrhage was measured at 3.2 x 2.0 x 3.0 c m. There was a similar volume of surrounding parenchymal edema and intraventricular blood products. Brain CT scan done on 06/20/2023 shows a deep parenchymal hemorrhage centered in the left basal gang herbert, appearing stable in size compared to 06/16/2023 where it measured 3.2 x 1.9 x 3.0 cm. There is redemonstration of trace intraventricular blood now layering in the dependent portion of the lateral ventricles without hydrocephalus. Medications: Tylenol 500 mg every 4 hours as needed, Lipitor 80 mg at bedtime, Dulcolax 10 mg per re ctum as needed, Zetia 10 mg at bedtime, Pepcid 20 mg daily, Lasix 20 mg daily, Apresoline 25 mg 3 michaelle es daily, Humalog insulin 2 units subcutaneously 3 times daily with meals, Zyvox 600 mg twice daily, Cozaar 100 mg daily, magnesium oxide 400 mg twice daily, Procardia XL 60 mg daily, Seroquel 25 mg at bedtime, Senokot S 17.2 mg twice daily, and Mylicon 80 mg every 6 hours as needed. Family History: Noncontributory. Social History: Patient lives with . Family is very much involved. No alcohol, tobacco, or IV drug use. Review of Systems: She reports some unusual movements of the right arm and she tries to move it, very difficult to get i t coordinated. Some difficulty getting her thoughts and words together and numbness on her right seth e. She said this she is split in the middle. Otherwise, some difficulty with swallowing. She has t hickened liquids and some issues of bowel movement. She said the last one was 2 days ago. She mari lly goes about every other day to every third day. No rash. No other issues such as active genitour inary issues. She did complete treatment for urinary tract infection. She did report very, very apple id dreams, which were identified as potential hallucinations prior to coming to the unit. She has al so had some difficulty sleeping at night in the hospital. The family did note that the potential for these hallucinations likely came after back to back multiple nights without sleep. Current Level Of Functioning: Currently, eating is at supervision. Oral hygiene, contact guard. To ileting, dependent. Showering, dependent. Lower body dressing, maximal assistance. Lower body dres sing, dependent. Donning and doffing footwear, dependent. For rolling [id number], [id number], and vfa-[id number], moderate assistance. For sliding to the side of the bed, maximal assistance going to a [id number] transfer and toilet transfer dependent. Walking is dependent with a rolling walke r and not yet ambulated unit. Laboratory Studies: For laboratory studies, white blood cell 9.9, hemoglobin 12.0, hematocrit 37.5, platelets 244. Sodium 140, potassium 3.4, glucose 116, BUN 43, creatinine 0.96, calcium 9.7. Physical Examination: Vital Signs: Blood pressure 152/74, pulse 85, respiratory rate 16, temperature 97.4, oxygen saturati on 97%. Weight 185 pounds, height 5 feet 7 inches, BMI 29.0. General: Ms. Goddard is resting in bed. She is in no acute distress. HEENT: She appears normocephalic, atraumatic. Sclerae anicteric. Oropharynx is moist. Neck: Supple. Chest: Clear. Heart: Irregularly irregular. Extremities: Show no significant edema or cyanosis. Neurological: Difficulty with labial lingual and guttural sounds. She is slow with repetition. She has full visual danielle to confrontation. Very subtle decrease in the right nasolabial fold with goo d excursions and smiling. She has decreased to light touch temperature over the right face compared to the left side. In addition, sensation in the right upper and lower extremities are decreased comp ared to the left side. For the right side strength, she has about 3 to 4/5. She had significant dri ft when holding the right hand up for 10 seconds. In addition, the right lower extremity, she did fa ll to the bed within count of 5 strength hold the right leg. On the left side, no issues in terms of sensation or strength. Coordination, she has some dysmetria noted in the right upper and lower extr emities. She has extinction, feeling only left compared to the right side. Reflexes increased on th e right compared to the left. For gait, she will be ambulated with a gait belt, but patient thus far is very unsteady and unable to ambulate without maximum assistance. Rehab And Medical Assessment And Plan: Ms. Goddard is admitted to the inpatient rehabilitation unit w ith impairment category 03, brain dysfunction nontraumatic. Her impairment group code is 02.1 nontra umatic. Etiologic diagnosis, intraparenchymal bleed on the left basal ganglia and internal capsule w ith mild ventricular extension. Her comorbidities are atrial fibrillation, aphasia, bradycardia, cor onary artery disease, debility, decreased physical functioning, decreased mobility, diabetes mellitus type 2, dysphagia, fatigue, dyslipidemia, hypertension, leukocytosis, right-sided weakness, urinary tract infection. Plan: 1.She will have physical, occupational, and speech therapy for 3.5 hours, 5/ 7 days. 2.We will continue Lipitor for dyslipidemia. 3.Zetia for dyslipidemia along with the Lipitor. Dulcolax per rectum for constipation. Tylenol for pain, Pepcid for GE reflux, Lasix for fluid management along with the Apresoline for hypertension. 2 units of Humalog insulin 3 times daily with meals for diabetes mellitus. Continue the Zyvox, magnes ium oxide for muscle cramps and spasms. Continue the Procardia XL for her hypertension, Seroquel as needed for hallucinations, senna 17.2 mg twice daily for constipation, Mylicon 80 mg every 6 hours fo r gas pain. Comorbidities That Are Impacting Her Rehabilitation: Her big issue of course is a stroke with right- sided weakness, incoordination. In addition, she has mild expressive aphasia, dysphagia, and hemisen arvind decrease on the right. In addition, high risk of aspiration and the potential for urinary tract infection is to be carefully monitored. She also has the atrial fibrillation currently due to the b leed, is not able to receive any significant anticoagulation. DVT prophylaxis will be done with sequ ential compression devices and with RODGER hose as appropriate and hydration will be encouraged along wi th bed foot exercises to minimize the risk of deep vein thrombus. Rehab Specific Plan: Ms. Goddard will have physical, occupational, and speech therapy to improve her ability to articulate to speak, to protect her airway while swallowing, to be able to have clear inte lligible speech, to work on her cognitive functioning to make safe decisions at home. In addition, o ccupational therapy will be helpful for her to regain the ability to dress upper and lower body to sh ower to toilet and to perform all activities of daily living with minimum assistance to independence. In addition, physical therapy will help her with ambulation to cover more than household distances, will be helpful 250 feet and a rolling walker should be used at all times, up and down 10 steps with bilateral handrails, wheelchair 250 feet with modified independence as well. Ms. Goddard and her family have a good understanding of the process of admission to the inpatient reha bilitation facility and how she will benefit from physical, occupational, and speech therapy. She wi ll also have 24 hours a day, 7 days a week alf and physician evaluation on a daily basis along with Heeler evaluation and management to help with discharge planning. If need be add itional help from the hospitalist service, radiology service will be sought. Given the risk of compl ication and from multiple medical conditions, rehabilitation cannot be safely or affectively performe d at a lower level of such as alf. Barriers To Discharge: Currently, she would be at increased risk of deep vein thrombus because she i s in hospital after stroke with some right-sided weakness, but has a bleed and cannot receive anticoa gulation, so SCDs will be used in hospital and will be encouraged at home at home after discharge, wh ich is a plan for her to be able to go home. Length Of Stay: Around 21 days. Disposition: Home with family and home health. should be participating in family training. Prognosis: Fair at this point. Rehab Goals: 1.Become independent with upper and lower body dressing, toileting, donning and doffing of footwear, showering, and activities of daily living. 2.Independently ambulate 250 feet with a rolling walker. 3.Independently propel a wheelchair 250 feet. 4.Independently go up and down 10 steps holding onto bilateral handrails. 5.Independently perform all cognitive functioning including around safety awareness, medication emma gement, and all physician followups. 6.The above goals were reviewed with Ms. Goddard and the family and they actually are in agreement. By signing this document, I acknowledge I personally performed a full physical examination on Ms. Pierre dalton no later than 24 hours after her admission to the inpatient rehabilitation facility and determine d that she is able to tolerate the above course of treatment at an intensive level for reasonable per iod of time. A detailed individualized plan of care for her will be completed by hospital day 4 base d on the pre-admission screen, history and physical, and therapy evaluations. ANI Voice ID: [id number]
[2023-06-27] MEDS ORDERED: D50W 25 GM/50 ML SYRINGE IV PRN (04:00)
[2023-06-27 07:29] LABS: PT Prothrombin Time 13.5 SECONDS (9.5-12.5); Protime INR 1.23
[2023-06-27] MEDS ORDERED: INSULIN LISPRO 100 UNIT/ML SQ SCH (07:30)
[2023-06-27] MEDS: INSULIN REGULAR (HUMAN) 100 UNIT/ML SQ SCH (07:30)
[2023-06-27 07:31] LABS: Absolute Basophils 0.1 K/uL (0-0.5); Absolute Eosinophils 0.5 K/uL (0-0.5); Absolute Lymphocytes (CBC) 2.6 K/uL (0.7-4.9); Absolute Monocytes 1.2 K/uL (0.1-1.3); Absolute Neutrophil 6.3 K/uL (1.8-8.0); Basophils % 0.5 % (0-1.3); Eosinophils % 4.3 % (0-4.4); Hematocrit 41.9 % (36.0-45.0); Hemoglobin 14.1 g/dL (12.0-15.0); Lymphocytes % 24.4 % (15.3-44.8); MCH 30.1 pg (27.0-35.0); MCHC 33.6 g/dL (32.0-36.0); MCV 89.4 fL (80-100); MPV 9.1 fL (7.6-11.3); Monocytes % 11.3 % (3.3-12.3); Neutrophils % 59.5 % (41.7-73.7); Nucleated Red Blood Cells % 0.1 % (0-0); Platelets 333 thou/uL (152-406); RBC Red Blood Cell Count 4.69 M/uL (3.86-4.86); Red Cell Distribution Width 16.8 % (12.1-15.2)
[2023-06-27] MEDS: cloNIDine HCL 0.1 MG TAB PO SCH (07:39)
[2023-06-27] MEDS: HYDRALAZINE HCL 25 MG TABLET PO SCH (07:40)
[2023-06-27 07:48] LABS: Albumin 2.8 g/dL (3.4-5.0); Anion Gap 7.9 mEq/L (5.0-15.0); Magnesium 1.5 mg/dL (1.6-2.4); Potassium 2.9 mEq/L (3.5-5.1)
[2023-06-27] MEDS: POLYETHYL GLY 3350 17 GM/DOSE PO SCH (07:50)
[2023-06-27] MEDS: LINEZOLID 600 MG TAB PO SCH (07:51)
[2023-06-27] MEDS: FAMOTIDINE 20 MG TAB PO SCH (07:52)
[2023-06-27] MEDS: FUROSEMIDE 20 MG TABLET PO SCH (07:52)
[2023-06-27] MEDS: NIFEDIPINE XL 60 MG TABLET PO SCH (08:00)
[2023-06-27] MEDS: LOSARTAN POTASSIUM 50 MG TABLET PO SCH ×2 (08:00→10:02)
[2023-06-27] MEDS: NIFEDIPINE XL 30 MG TABLET PO SCH (10:01)
[2023-06-27] MEDS: LIDOCAINE 4% PATCH TOP SCH (13:03)
[2023-06-27] MEDS: GABAPENTIN 100 MG CAP PO SCH (13:03)
[2023-06-27] MEDS: BACLOFEN 10 MG TAB PO SCH (13:03)
[2023-06-27] MEDS: QUETIAPINE 25 MG TAB PO SCH (20:35)
[2023-06-27] MEDS ORDERED: NIFEDIPINE XL 30 MG TABLET PO SCH (21:00)
[2023-06-28] MEDS: POTASSIUM 25 MEQ EFFERV TAB PO ONE (07:19)
[2023-06-28] MEDS ORDERED: LIDOCAINE 4% PATCH TOP SCH (08:00)
--- NOTE | 2023-06-28 09:56 | P.CNS ---
Date of Consult: 06/28/23 Reason for Consult: Painful callous Allergies dexamethasone [From Maxitrol] Allergy (Verified 06/26/23 14:49) Rash lactose Allergy (Verified 06/26/23 14:49) Unknown polymyxin B [From Maxitrol] Allergy (Verified 06/26/23 14:49) Rash neomycin Adverse Reaction (Verified 06/26/23 14:49) Hives/Rash Home Medications: Atorvastatin Calcium [Lipitor] 80 mg PO BEDTIME 06/26/23 Ezetimibe [Zetia] 10 mg PO DAILY 06/26/23 Famotidine [Pepcid] 20 mg PO DAILY 06/26/23 Furosemide [Lasix] 20 mg PO DAILY 06/26/23 Hydralazine [Apresoline] 50 mg PO TID 06/26/23 Insulin Lispro 2 unit SQ TIDWM 06/26/23 Linezolid [Zyvox] 600 mg PO BID 06/26/23 Losartan Potassium [Cozaar] 100 mg PO DAILY 06/26/23 NIFEdipine [Nifedipine ER] 60 mg PO DAILY 06/26/23 Nifedipine Xl [Procardia Xl*] 30 mg PO BEDTIME 06/26/23 Polyethyl Gly 3350 [Glycolax] 17 gm PO BID 06/26/23 Quetiapine [Seroquel] 25 mg PO DAILY 06/26/23 Sennosides [Senokot] 8.6 mg PO DAILY 06/26/23 Simethicone [Mylicon Tab] 80 mg PO Q6H PRN 06/26/23 bisacodyL [Bisacodyl] 10 mg RC DAILY 06/26/23 cloNIDine HCL [Catapres*] 0.1 mg PO BID 06/26/23 - Past Medical/Surgical History Diabetic: Yes -: hypercholesteremia -: htn -: afib -: cardiac blockages -: hysterectomy.oophorectomy -: stent placement -: appendix -: eye tuck - Family History Father Medical History: Lung disease, Cancer Notes: Pancreatic Mother Medical History: Hypertension, Stroke, Cancer Notes: breast - Social History Smoking Status: Never smoker Alcohol use: No CD- Drugs: No Caffeine use: Yes Review of Systems 10-point ROS is otherwise unremarkable Physical Examination Temp Pulse Resp BP Pulse Ox 96.9 F 66 18 161/77 H 98 06/28/23 06:33 06/28/23 07:22 06/28/23 06:33 06/28/23 07:22 06/28/23 06:33 General: Alert, In no apparent distress, Oriented x3 Cardiovascular: No edema, Abnormal pulses (0/4 dp/pt pulses bilateral) Capillary refill: <2 Seconds Musculoskeletal: No clubbing, No swelling, No contractures, No erythema, No tenderness, No warmth Integumentary: No rashes, No breakdown, No significant lesion, No tenderness/swelling, No erythema, No warmth, No cyanosis (Focal hyperkeratotis lesion sub right 5th mpj with no drainage or open wound) Neurological: Abnormal sensation - Problems (1) Generalized atherosclerosis without gangrene Current Visit: Yes Status: Acute (2) Corns and callosities Current Visit: Yes Status: Acute (3) Coronary artery disease Current Visit: No Status: Acute Qualifiers: (4) Diabetes Current Visit: No Status: Acute Qualifiers: Conclusions/Impression: Debridement of callous right foot
[2023-06-28] MEDS: HYDRALAZINE HCL 25 MG TABLET PO SCH (14:33)
[2023-06-28] MEDS: NIFEDIPINE XL 30 MG TABLET PO SCH (20:58)
[2023-06-28] MEDS: ENSURE ENLIVE 237 ML CAN PO SCH (20:59)
[2023-06-28] MEDS: cloNIDine HCL 0.1 MG TAB PO SCH (21:00)
--- NOTE | 2023-06-28 22:03 | PN ---
Date of Progress Note: 06/28/2023 Time Of Service: 1:10 p.m. Subjective: Ms. Goddard is resting in the room. Family is at the bedside. She says she did a lot of therapy today, worked with all the disciplines and is feeling very good about her therapy. She did say she felt she had not had a bowel movement in about 5 days, but checking with the nursing staff, s he reportedly had a large bowel movement yesterday. Otherwise, she is eating well. Some difficulty sleeping and still has some muscle spasms in the left lower extremity and upper extremities. Objective: Again, mild muscle spasms on the left side. Mild difficulty with sleep. Reported consti pation, but the nurses did note that she had a bowel movement yesterday. Otherwise, some difficulty with her thoughts and words expression and comprehension. Physical Examination: Vital Signs: Blood pressure 161/77, pulse of 66 that is lying, while sitting 129/58, pulse of 81, te mperature 97.2, respiratory rate 16, oxygen saturation 98. Weight 185 pounds. Height 5 feet 7 inche s. BMI 29.0. General: Ms. Goddard is sitting in a chair. Her and friend are close by. She has good hemos tasis without any issues. She does have the intraparenchymal bleed in the left basal ganglia and lef t internal capsule and has some right-sided symptoms. She has mild difficulty getting words and thou ghts together with again the right-sided weakness and incoordination. Laboratory Studies: Complete blood count differential is essentially normal. INR 1.23. Blood sugar s ranged from 163 to 200. Sodium 139, potassium 2.9, chloride 105, carbon dioxide 29, BUN 23, creati nine 1.03, prealbumin 17, albumin 2.8, magnesium 1.5, calcium 9.5. Urinalysis shows turbid clarity, trace blood, 250 esterase, 20 to 50 white blood cells, occasional budding yeast, 2+ protein, otherwis e normal. Cultures did grow less than 10,000 colony-forming units of mixed conchita. Consultations: She was evaluated by Dr. Mu Evans on the Podiatry Service and was diagnosed with corns and callosities and he did perform debridement of the callus of the right foot at the bedside. X-ray/imaging: No new x-rays or imaging. Medications: Tylenol 500 mg every 4 hours as needed, Lipitor 80 mg at bedtime, baclofen 10 mg daily, clonidine 0.1 mg twice daily, Dulcolax 10 mg per rectum as needed, Zetia 10 mg at bedtime, Pepcid 20 mg daily, Lasix 20 mg daily, gabapentin 100 mg twice daily, hydralazine 50 mg 3 times daily, lidocai ne patch 1 patch topically daily, Zyvox 600 mg twice daily, Cozaar 50 mg daily, magnesium oxide 400 m g twice daily, Procardia XL 30 mg twice daily, Ensure Enlive 237 mL twice daily, potassium bicarbonat e 20 mEq daily, Seroquel 12.5 mg at bedtime, Senokot 17.5 mg twice daily, and Mylicon 80 mg every 6 h ours as needed. Progress Made With Physical And Occupational Therapy: Today with physical therapy, she mobilized whe elchair 75 feet with minimum assistance, verbal cues needed for correction and direction. Sit-to-sta nd transfer done with moderate assistance. With occupational therapy, toileting dependent, bathing m aximal assist, upper body dressing maximal assistance lower body dressing was dependent. Footwear al so dependent. She did have a bedside swallow evaluation for dysarthria and found to not have any cho ant episodes and was cleared by Speech for swallowing. Long-term goals were to tolerate regular arcelia tures and thin liquids without signs of aspiration and improve memory, executive functioning from mod erate assistance to minimum assistance prior to discharge home. Ms. Goddard is beginning to make good progress, although she just arrived to the unit with her physica l, occupational, and speech therapy following her intracerebral hemorrhage. Assessment: Ms. Goddard is an 83-year-old patient in the rehabilitation unit with a left basal gangli a and internal capsule intraparenchymal bleed with mild ventricular extension. 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 Plan: 1.Continue with physical, occupational, and speech therapy for 3.5 hours, 5 of 7 days. 2.Her multiple comorbid conditions are addressed by continuing medications, which are noted above. She does have DVT prophylaxis on board as well. Comorbidities That Are Impacting Rehabilitation: The difficulty with her expression and comprehensio n is slight impediment, but she is working very well around that. She is on DVT prophylaxis. She do es have sequential compression device and RODGER hose. Given the MODULAR [employer] bleed, we will hold off on heavy a nticoagulation. AMRIK/TRACY Voice ID: [id number] Report ID: [id number]
[2023-06-29] MEDS: ENSURE CLEAR 200 ML CAN PO SCH (07:59)
[2023-06-29] MEDS: POTASSIUM 25 MEQ EFFERV TAB PO SCH (08:00)
[2023-06-29] MEDS: LOSARTAN POTASSIUM 50 MG TABLET PO SCH (09:58)
--- NOTE | 2023-06-29 19:15 | PN ---
Date of Progress Note: 06/29/2023 Time Of Service: 1:10 p.m. Subjective: Ms. Goddard is sitting in a chair. Her son is at the bedside. She is in between therapy sessions. She has no new complaints. She said she is doing better, walking better. Denies any sig nificant pain. She is sleeping much better now that she has had some adjustments of her medications to help with muscle spasms and to help promote sleep. Review of Systems: Again, muscle spasms improved. No fevers or chills. No significant myalgias, arthralgias. Mild dif ficulty with expression and comprehension, which is from her intraparenchymal bleed. Physical Examination: Vital Signs: Blood pressure 129/59, pulse 77, respiratory rate 16, temperature 97.5, oxygen saturati on 92%. General: Ms. Goddard is resting comfortably in her chair. She is in no acute distress. HEENT: Normocephalic, atraumatic. Sclerae anicteric. Oropharynx is pink and moist. Neck: Supple. Chest: Clear. Extremities: No significant edema, cyanosis. Neurological: Difficulty with expression, comprehension. Some right-sided incoordination, difficult y with fine finger movements, especially the hand and able to reach and grasp, also some difficulty t here. Left side is intact. Lower extremity again incoordination in the right leg compared to the le ft side. Laboratory Studies: Blood sugars ranged from 160 to 192. X-ray/imaging: No new x-rays or imaging. Medications: Medications have been reviewed and remained unchanged. Progress Made With Physical And Occupational Therapy: Today with physical therapy, she mobilized whe elchair 125 feet with minimum assistance and verbal cues. Bed mobility, minimal assistance. Bed to wheelchair and stand pivot transfers maximum assistance required. With her occupational therapy, par tial assistance for supine to sit transfers, maximum assistance for edge of bed to wheelchair transfe r. In terms of speech today, she was provided thin liquids, given safe swallowing strategies. At 90 deg ree positioning, tolerated 4 ounces of thin liquids without signs of overt aspiration. It is recomme nded upgrade from nectar thick to thin liquids. She was noted to be very motivated. Ms. Goddard is making good progress with physical, occupational, and speech therapy. Assessment: Ms. Goddard is an 83-year-old patient in the rehabilitation unit with left basal ganglia and internal capsule intraparenchymal bleed with ventricular extension. She is recovering at a fair pace from her deficits. She has atrial fibrillation with coronary artery disease, debility, decrease d physical functioning, decreased mobility, diabetes mellitus type 2, dyslipidemia, hypertension, roxann kocytosis, and right-sided weakness with incoordination. She has the expressive and mild receptive a phasia as well. Plan: 1.Continue with physical, occupational, and speech therapy for 3.5 hours, 5/7 days. 2.She will continue baclofen for muscle spasms, Lipitor for dyslipidemia, Tylenol for pain, Dulcolax for constipation, clonidine as needed for systolic blood pressure being elevated. We will continue the 0.1 mg twice daily, Zetia 10 mg at bedtime, Pepcid 20 mg daily, Lasix 20 mg daily, gabapentin 100 mg twice daily, Apresoline 50 mg 3 times daily, lidocaine patch daily, Zyvox 600 mg twice daily, Coz aar 50 mg daily, magnesium oxide 400 mg twice daily, Procardia XL 30 mg twice daily, K-Lyte 20 mEq da gabe, Seroquel 12.5 mg daily, Senokot 17.2 mg twice daily, and Mylicon 80 mg every 6 hours as needed f or flatulence. Comorbidities Are Continuing To Impact Rehabilitation: Currently, her expressive aphasia and recepti ve aphasia are mildly impacting her ability to communicate quickly and effectively, but she is actual ly doing very well and improving well with speech therapy. She still has significant incoordination, unable to stand and ambulate any meaningful distances, but she mobilizes very well with a wheelchair. LB/MODL Voice ID: [id number] Report ID: [id number]
--- NOTE | 2023-06-30 21:07 | PN ---
Date of Progress Note: 06/30/2023 Time Of Service: 1:10 p.m. Subjective: Ms. Goddard is in her room in a chair. at the bedside. She reports improvement in ability to transfer and mobilize. She is still not able to walk. She mobilized wheelchair. Her right hand dexterity is not improving at a fast pace. She is however able to hold onto a small squee ze toy after significant effort. There is much past-pointing and dysmetria as she tries to reach the object. Review of Systems: Muscle spasms much better. She is sleeping much better. She denies any significant arthralgias. Sh antonietta has difficulty with expression, comprehension, and again, poor coordination in the right upper extr emity and lower extremity. Physical Examination: Vital Signs: Blood pressure ranged from 122 up to 194/57 to 88. Pulse rate up to 86, respiratory ra te 16 to 18, temperature 97.2, oxygen saturation 97%. She did have a repeat orthostatic blood pressu res after her initial very elevated blood pressure today, while sitting 137/63, pulse 65, and standin g 129/60, pulse 79. General: Ms. Goddard again sitting in a chair, in no significant distress. HEENT: She is normocephalic, atraumatic. Neuro: She has significant dysmetria in the right upper extremity, some difficulty with expression, comprehension, working on articulation as well, unable to ambulate, mobilized by wheelchair, still mo derate assistance at least required for her transfers. Laboratory Studies: No new laboratory studies except blood sugars ranged from 168 to 187, potassium 3.7. Medications: Medications have been reviewed and remain unchanged. Progress Made With Physical, Occupational, And Speech Therapy: Today with physical therapy, she mobi lized wheelchair 90 feet with standby assistance and verbal cues, bed mobilization standby assistance , and verbal cues [id number]. She actually did with minimum assistance later in the day and maximu m assistance for [id number] later in the day. Regarding her occupational therapy, bathing minimum assistance, upper body dressing minimum assistance, maximal assistance with [id number] and stand-to -pivot transfer. With speech therapy, she recalled 3 of 3 unrelated words without cues after 3 minut es, 5 minutes, and then 2 of 3 after 7 minutes. Over articulation was used as a speech production st melba with 100% accuracy for sentence level speech. Four words were sequenced accurately with 70% accuracy. Ms. Goddard is beginning to make fair progress with her physical, occupational, and speech therapy giv en her intraparenchymal bleed. Assessment: Ms. Goddard is an 83-year-old patient with left basal ganglia and internal capsule intrap arenchymal bleed with ventricular extension. She is making fair progress overall with physical, occu pational, and speech therapy. She has atrial fibrillation, coronary artery disease, decreased physic al functioning, decreased mobility, diabetes mellitus, dyslipidemia, hypertension, leukocytosis, righ t lower extremity weakness, incoordination, expressive and receptive aphasia. Plan: 1.Continue with physical, occupational, and speech therapy for 3.5 hours, 5 of 7 days. 2.She has multiple medications which are continuing to address her comorbid conditions that are outl ined. Comorbidities That Are Impacting Her Rehabilitation: The mild difficulty with expression and compreh ension is improving and making it slightly difficult to communicate at the fast pace. She does have significant incoordination in the right upper extremity, making it difficult for very easy functional tasks with the right hand, but she is still making progress. AMRIK/TRACY Voice ID: [id number] Report ID: [id number]
[2023-07-01 05:12] LABS: Absolute Basophils 0.1 K/uL (0-0.5); Absolute Eosinophils 0.3 K/uL (0-0.5); Absolute Lymphocytes (CBC) 1.9 K/uL (0.7-4.9); Absolute Monocytes 0.8 K/uL (0.1-1.3); Absolute Neutrophil 6.7 K/uL (1.8-8.0); Basophils % 0.6 % (0-1.3); Eosinophils % 3.2 % (0-4.4); Hemoglobin 12.7 g/dL (12.0-15.0); MCH 29.8 pg (27.0-35.0); MCHC 33.4 g/dL (32.0-36.0); MCV 89.2 fL (80-100); MPV 8.6 fL (7.6-11.3); Monocytes % 8.4 % (3.3-12.3); Neutrophils % 68.8 % (41.7-73.7); Nucleated Red Blood Cells % 0.3 % (0-0); Platelets 300 thou/uL (152-406); RBC Red Blood Cell Count 4.26 M/uL (3.86-4.86); Red Cell Distribution Width 16.7 % (12.1-15.2)
[2023-07-01 05:37] LABS: Albumin 2.6 g/dL (3.4-5.0); Anion Gap 6.6 mEq/L (5.0-15.0); Magnesium 2.2 mg/dL (1.6-2.4); Potassium 3.6 mEq/L (3.5-5.1); Prealbumin 21.7 mg/dL (20-40)
[2023-07-01] MEDS: HYDRALAZINE HCL 25 MG TABLET PO SCH (13:53)
[2023-07-01 17:33] LABS: Sqamous Epithelial <5 /HPF (None Seen); Urine Bacteria <20 /HPF (<20); Urine Bilirubin NEGATIVE (Negative); Urine Blood Negative (Negative); Urine Clarity Extremely Turbid (Clear); Urine Color Light-Yellow (Yellow); Urine Crystals Unidentified Few /HPF (None Seen); Urine Culture Reflex Order REFLEXED; Urine Glucose NEGATIVE (Negative); Urine Ketones NEGATIVE (Negative); Urine Micro Reflex YN NO BILL MICROSCOPIC; Urine Nitrite NEGATIVE (Negative); Urine Protein 1+ (Negative); Urine Urobilinogen Normal (Normal); Urine WBC >50 /HPF (<5); Urine WBC Clump Occasional /HPF (None Seen); Urine Yeast (Budding) Few /HPF (None Seen); Urine pH 6.5 (5.0-7.0)
[2023-07-02] MEDS: CRANBERRY FRUIT EXTRACT 200 MG CAP PO SCH (09:41)
[2023-07-02] MEDS: GLUCERNA SHAKE 237 ML CAN PO SCH (09:43)
--- NOTE | 2023-07-02 13:27 | P.RH.PN ---
Estimated Length of Stay: 15 Expected Discharge Date: 07/10/23 Discharge Disposition Plan: Home Family Support: Yes Residential Goal: Mobility, Transfers, Self Care Vital Signs: Last Vital Signs Temp 97.1 F 07/02/23 06:39 Pulse 85 07/02/23 09:39 Resp 16 07/02/23 06:39 BP 142/69 H 07/02/23 09:39 Pulse Ox 96 07/02/23 06:39 Laboratory: Laboratory Last Values WBC 9.70 thou/uL (4.3-10.9) 07/01/23 04:49 RBC 4.26 M/uL (3.86-4.86) 07/01/23 04:49 Hgb 12.7 g/dL (12.0-15.0) 07/01/23 04:49 Hct 38.0 % (36.0-45.0) 07/01/23 04:49 MCV 89.2 fL (80-100) 07/01/23 04:49 MCH 29.8 pg (27.0-35.0) 07/01/23 04:49 MCHC 33.4 g/dL (32.0-36.0) 07/01/23 04:49 RDW 16.7 % (12.1-15.2) H 07/01/23 04:49 Plt Count 300 thou/uL (152-406) 07/01/23 04:49 MPV 8.6 fL (7.6-11.3) 07/01/23 04:49 Neutrophils % 68.8 % (41.7-73.7) 07/01/23 04:49 Lymphocytes % 19.0 % (15.3-44.8) 07/01/23 04:49 Monocytes % 8.4 % (3.3-12.3) 07/01/23 04:49 Eosinophils % 3.2 % (0-4.4) 07/01/23 04:49 Basophils % 0.6 % (0-1.3) 07/01/23 04:49 Absolute Neutrophils 6.7 K/uL (1.8-8.0) 07/01/23 04:49 Absolute Lymphocytes 1.9 K/uL (0.7-4.9) 07/01/23 04:49 Absolute Monocytes 0.8 K/uL (0.1-1.3) 07/01/23 04:49 Absolute Eosinophils 0.3 K/uL (0-0.5) 07/01/23 04:49 Absolute Basophils 0.1 K/uL (0-0.5) 07/01/23 04:49 PT 13.5 SECONDS (9.5-12.5) H 06/27/23 06:52 INR 1.23 06/27/23 06:52 Sodium 136 mEq/L (136-145) 07/01/23 04:49 Potassium 3.6 mEq/L (3.5-5.1) 07/01/23 04:49 Chloride 100 mEq/L (98-107) 07/01/23 04:49 Carbon Dioxide 33 mEq/L (21-32) H 07/01/23 04:49 Anion Gap 6.6 mEq/L (5.0-15.0) 07/01/23 04:49 BUN 43 mg/dL (7-18) H 07/01/23 04:49 Creatinine 1.60 mg/dL (0.55-1.02) H 07/01/23 04:49 Est GFR (CKD-EPI) 32 ml/min (=/>90) L 07/01/23 04:49 Glucose 175 mg/dL (74-106) H 07/01/23 04:49 POC Glucose 202 mg/dL (65-120) H 07/02/23 11:57 Calcium 9.4 mg/dL (8.5-10.1) 07/01/23 04:49 Magnesium 2.2 mg/dL (1.6-2.4) 07/01/23 04:49 Albumin 2.6 g/dL (3.4-5.0) L 07/01/23 04:49 Prealbumin 21.7 mg/dL (20-40) 07/01/23 04:49 Urine Color Cancelled 07/01/23 17:45 Urine Clarity Cancelled 07/01/23 17:45 Urine pH Cancelled 07/01/23 17:45 Ur Specific [place] Cancelled 07/01/23 17:45 Glucose (UA)(Auto) Cancelled 07/01/23 17:45 Urine Ketones Cancelled 07/01/23 17:45 Urine Blood Cancelled 07/01/23 17:45 Urine Nitrite Cancelled 07/01/23 17:45 Urine Bilirubin Cancelled 07/01/23 17:45 Urine Urobilinogen Cancelled 07/01/23 17:45 Ur Leukocyte Esterase Cancelled 07/01/23 17:45 Urine RBC Cancelled 07/01/23 17:45 Urine Red Cell Clumps Cancelled 07/01/23 17:45 Urine WBC Cancelled 07/01/23 17:45 Urine WBC Clumps Cancelled 07/01/23 17:45 Ur Squamous Epith Cells Cancelled 07/01/23 17:45 U Non-Squamous Epi Cells Cancelled 07/01/23 17:45 Ur Transition Epith Cell Cancelled 07/01/23 17:45 Ur Renal Epithelial Cell Cancelled 07/01/23 17:45 Calcium Carbonate Cryst Cancelled 07/01/23 17:45 Calcium Oxalate Crystal Cancelled 07/01/23 17:45 Leucine Crystals Cancelled 07/01/23 17:45 Cystine Crystals Cancelled 07/01/23 17:45 Uric Acid Crystals Cancelled 07/01/23 17:45 Triple Phos Crystals Cancelled 07/01/23 17:45 Tyrosine Crystals Cancelled 07/01/23 17:45 Unidentified Crystals Cancelled 07/01/23 17:45 Amorphous Crystals Cancelled 07/01/23 17:45 Urine Bacteria Cancelled 07/01/23 17:45 Hyaline Casts Cancelled 07/01/23 17:45 Granular Casts Cancelled 07/01/23 17:45 Waxy Casts Cancelled 07/01/23 17:45 RBC Casts Cancelled 07/01/23 17:45 WBC Casts Cancelled 07/01/23 17:45 Urine Mucus Cancelled 07/01/23 17:45 Urine Trichomonas Cancelled 07/01/23 17:45 Ur Yeast w Hyphae Cancelled 07/01/23 17:45 Urine Yeast (Budding) Cancelled 07/01/23 17:45 Urine Sperm Cancelled 07/01/23 17:45 Ur Oval Fat Bodies Cancelled 07/01/23 17:45 Urine Culture Reflexed Cancelled 07/01/23 17:45 Urine Total Protein Cancelled 07/01/23 17:45 Urine Ascorbic Acid Cancelled 07/01/23 17:45 Urine Fat Cancelled 07/01/23 17:45 Weight: 185 lb Wound Present: No Closed Surgical Incision Present: No Negative Pressure Wound Therapy Present: No Physician Update: 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 Will increase water intake. BIMS 13, SLUMS 22, with memory loss, problems with apraxia. She has anxiety about drinking thin liquids. Will start Cymbalta 30 mg daily. Max assist with transfers, in parallel bars did 3-4 steps. Her right hand dexterity is improving slowly. She is staking cones with the right dominant stroke hand. Comment: dexacom lt arm Summary: Patient's care plan and residential goals have been reviewed and revised as necessary. Please see the Rehabilitation Signature page for all necessary signatures.
[2023-07-02] MEDS: LOSARTAN POTASSIUM 50 MG TABLET PO SCH (20:35)
[2023-07-03] MEDS: DULOXETINE 30 MG CAP PO SCH (08:11)
[2023-07-03] MEDS: TRAMADOL HCL 50 MG TAB PO PRN (10:47)
[2023-07-03] MEDS: ACETAMINOPHEN 500 MG TAB PO PRN (20:06)
[2023-07-03] MEDS: GABAPENTIN 100 MG CAP PO SCH (20:06)
[2023-07-03] MEDS ORDERED: NA CHLORIDE 0.9% 1,000 ML ONE ×2 (21:12→21:55)
[2023-07-03] MEDS: NA CHLORIDE 0.9% 500 ML IV ONE (21:28)
[2023-07-03] MEDS ORDERED: cloNIDine HCL 0.1 MG TAB PO PRN (21:30)
--- NOTE | 2023-07-03 21:52 | RAD REPORT ---
EXAM DESCRIPTION: CT - Head Brain Wo Cont - 07/03/2023 9:39 pm CLINICAL HISTORY: blurry vision Headache, drowsiness COMPARISON: Ct Stroke Brain Wo Cont dated 06/15/2023 TECHNIQUE: All CT scans are performed using dose optimization technique as appropriate and may inclu de automated exposure control or mA/KV adjustment according to patient size. FINDINGS: The patient's prior left-sided 2.4 cm basal ganglia bleed appears significantly smaller on today's study.No new areas of bleeding seen.Minimal right to left midline shift appears stable. The paranasal sinuses and mastoids are clear. The calvarium is intact. IMPRESSION: No new bleed seen. No acute finding. Left basal ganglia bleed seen on 06/15/2023 study appears partially resolved.
[2023-07-03] MEDS: NA CHLORIDE 0.9% 1,000 ML IV ONE ×2 (21:55→21:56)
[2023-07-04 07:47] LABS: Absolute Eosinophils 0.3 K/uL (0-0.5); Absolute Lymphocytes (CBC) 1.8 K/uL (0.7-4.9); Absolute Monocytes 0.7 K/uL (0.1-1.3); Absolute Neutrophil 5.6 K/uL (1.8-8.0); Basophils % 0.6 % (0-1.3); Eosinophils % 3.7 % (0-4.4); Hematocrit 37.4 % (36.0-45.0); Hemoglobin 12.5 g/dL (12.0-15.0); Lymphocytes % 21.2 % (15.3-44.8); MCHC 33.3 g/dL (32.0-36.0); MCV 90.1 fL (80-100); MPV 8.2 fL (7.6-11.3); Monocytes % 8.7 % (3.3-12.3); Neutrophils % 65.8 % (41.7-73.7); Platelets 252 thou/uL (152-406); RBC Red Blood Cell Count 4.15 M/uL (3.86-4.86); Red Cell Distribution Width 17.4 % (12.1-15.2)
[2023-07-04 08:07] LABS: Anion Gap 7.2 mEq/L (5.0-15.0); Magnesium 2.3 mg/dL (1.6-2.4); Potassium 4.2 mEq/L (3.5-5.1); T3 Free 2.03 pg/mL (2.18-3.98)
[2023-07-04 08:08] LABS: Thyroid Stimulating Hormone 4.73 uIU/mL (0.358-3.740)
[2023-07-04] MEDS ORDERED: LEVOTHYROXINE SOD 0.025 MG TAB ONE (14:22)
[2023-07-04] MEDS: LEVOTHYROXINE SOD 0.025 MG TAB PO SCH (14:23)
--- NOTE | 2023-07-04 20:11 | PN ---
Date of Progress Note: 07/04/2023 Time Of Service: 2:30 p.m. Subjective: Ms. Goddard did note she was somewhat confused last night, had some problems seen out of the right eye. She did have a CT scan done. The study showed no acute findings and the stroke which is in the left basal ganglia which is bleeding stroke was compared to a study done on 06/15/2023. S phillip here is 07/03/2023. The note says prior left-sided 2.4 cm basal ganglia bleed appears significa ntly smaller on today's study with no new areas of bleeding and there is minimal shbtq-vr-[id number] midlin e shift which appears stable. This was communicated with the patient, very reassuring. She did not have at the time of my evaluation additional questions about her visual issues and again family also are at the bedside and they were indicating the patient's that she will likely course up to g o to senior living as he is not able to manage and lift her at home and the son and daughter are wo rking and unable to be there, so senior living is likely the place she will have to go to. Review of Systems: Denies any muscle spasms. Again, difficulty with vision is what she complained of, but that is not a t this current time. She does have poor coordination in the right upper and lower extremity which is not changed. Physical Examination: Vital Signs: Blood pressure 126/59, pulse 75, respiratory rate of 16, temperature 97.1, oxygen satur ation 97%. General: Ms. Goddard is sitting in a chair beside the bed. HEENT: She is normocephalic, atraumatic. Sclerae anicteric. Oropharynx moist. Neck: Supple. Chest: Clear. Neurological Exam: She has the ongoing incoordination in the right upper extremity, difficulty with making fine finger movements. She has past-pointing. She was able to raise her hand to give a hand shake and eventually after repeated attempts was able to get her hand steady enough to do a hand myrna e with the right hand. Otherwise, the right lower extremity much better coordination. Strength is v daquan good bilaterally in the lower and upper extremities. Laboratory Studies: Complete blood count with differential is normal except for slightly elevated RD W of 17.4, which is very stable. Her chemistries show hyponatremia. Sodium 134, potassium 4.2, chlo ride 98, carbon dioxide 33, BUN 42, creatinine 1.35, glucose ranged from 127 to 161. Her TSH was christine vated to 4.73, free T3 down to 2.03 and free T4 was 1.35, total T3 was 0.92. She was started on Synt hroid 0.025 mg daily. X-ray/imaging: As mentioned above. Progress Made With Physical And Occupational Therapy: With her therapy today, she was able to do sta nd-to-pivot transfer with moderate assistance without an assistive device, using physical therapist f or [id number] transfer with moderate assistance. She did work with a toy tiger to work on dexteri ty and coordination. With occupational therapy, she did have therapeutic intervention for her pain i n the lower back. She had offloading roll placed which helped. The patient was restless during the entire therapy session as noted by therapist. Ms. Goddard is making fair progress with her physical and occupational therapy and speech therapy in t erms of recovery from her stroke deficits. She still has episodes of confusion at night and is worri ed about vision, but that is negative in terms of CT scan showing any unexpected findings. Assessment: Ms. 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 Her repeat CT scan shows improvement t hat is decreasing in the size of the lesions in basal ganglia. She does have atrial fibrillation, co ronary artery disease, decreased physical functioning, decreased mobility, diabetes mellitus, dyslipi demia, hypertension, leukocytosis with lower extremity weakness, incoordination, expressive and medical office receptionist tive aphasia. Plan: 1.Continue with physical, occupational, and speech therapy for 3.5 hours, 5 of 7 days. 2.She has multiple comorbid conditions which I listed above and she has multiple comorbid condition medications which are continued. Comorbidities That Are Impacting Her Rehabilitation: Currently, the sundowning and confusion at [facility] will be addressed by adding and making sure melatonin is on board to help her with rest. Her pain is being addressed with Tylenol and will have also tramadol 50 mg as needed. She has magnesium for m uscle relaxation and baclofen also as needed. LB/MODL Voice ID: [id number] Report ID: [id number]
--- NOTE | 2023-07-05 09:50 | P.CNS ---
Date of Consult: 07/05/23 Reason for Consult: painful toenails Allergies dexamethasone [From Maxitrol] Allergy (Verified 06/26/23 14:49) Rash polymyxin B [From Maxitrol] Allergy (Verified 06/26/23 14:49) Rash neomycin Adverse Reaction (Verified 06/26/23 14:49) Hives/Rash Home Medications: Atorvastatin Calcium [Lipitor] 80 mg PO BEDTIME 06/26/23 Ezetimibe [Zetia] 10 mg PO DAILY 06/26/23 Famotidine [Pepcid] 20 mg PO DAILY 06/26/23 Furosemide [Lasix] 20 mg PO DAILY 06/26/23 Hydralazine [Apresoline] 50 mg PO TID 06/26/23 Insulin Lispro 2 unit SQ TIDWM 06/26/23 Linezolid [Zyvox] 600 mg PO BID 06/26/23 Losartan Potassium [Cozaar] 100 mg PO DAILY 06/26/23 NIFEdipine [Nifedipine ER] 60 mg PO DAILY 06/26/23 Nifedipine Xl [Procardia Xl*] 30 mg PO BEDTIME 06/26/23 Polyethyl Gly 3350 [Glycolax] 17 gm PO BID 06/26/23 Quetiapine [Seroquel] 25 mg PO DAILY 06/26/23 Sennosides [Senokot] 8.6 mg PO DAILY 06/26/23 Simethicone [Mylicon Tab] 80 mg PO Q6H PRN 06/26/23 bisacodyL [Bisacodyl] 10 mg RC DAILY 06/26/23 cloNIDine HCL [Catapres*] 0.1 mg PO BID 06/26/23 - Past Medical/Surgical History Diabetic: Yes -: hypercholesteremia -: htn -: afib -: cardiac blockages -: hysterectomy.oophorectomy -: stent placement -: appendix -: eye tuck - Family History Father Medical History: Lung disease, Cancer Notes: Pancreatic Mother Medical History: Hypertension, Stroke, Cancer Notes: breast - Social History Smoking Status: Never smoker Alcohol use: No CD- Drugs: No Caffeine use: Yes Review of Systems 10-point ROS is otherwise unremarkable Physical Examination Temp Pulse Resp BP Pulse Ox 97.3 F 84 18 154/67 H 94 07/05/23 07:12 07/05/23 09:16 07/05/23 07:12 07/05/23 09:16 07/05/23 07:12 General: Alert, In no apparent distress, Oriented x3 Cardiovascular: No edema, Abnormal pulses (0/4 dp and pt pulses bilateral feet) Capillary refill: <2 Seconds Musculoskeletal: No clubbing, No swelling, No contractures, No erythema, No tenderness, No warmth Integumentary: No rashes, No breakdown, No significant lesion, No tenderness/swelling, No erythema, No warmth, No cyanosis, Other (Thickened hypertrophic nails with subungual debris bilateral hallux, elongated dystrophic nails 2-5 bilateral) Neurological: Sensation intact - Problems (1) Generalized atherosclerosis without gangrene Current Visit: Yes Status: Acute (2) Corns and callosities Current Visit: Yes Status: Acute (3) Coronary artery disease Current Visit: No Status: Acute Qualifiers: (4) Diabetes Current Visit: No Status: Acute Qualifiers: (5) Tinea unguium Current Visit: Yes Status: Acute (6) Onychogryphosis Current Visit: Yes Status: Acute Conclusions/Impression: Mechanical debridement of nails at bedside
[2023-07-05] MEDS: LORAZEPAM 0.5 MG TABLET PO ONE (13:23)
--- NOTE | 2023-07-05 16:43 | RAD REPORT ---
EXAM DESCRIPTION: MRI - Brain Wo Cont - 07/05/2023 2:20 pm CLINICAL HISTORY: CANT SEE ON RT EYE COMPARISON: Head CT 07/03/2023 and 06/15/2023 TECHNIQUE: Multiplanar multisequence MRI of the brain performed without IV contrast. FINDINGS: Left basal ganglia/centrum semiovale lobulated collection of blood products demonstrating mostly intrinsic T1 and T2 hypointense signal, with a central signal intensity, and marginal hemoside rin deposition on the gradient images. The collection measures 2.9 x 2.0 cm in greatest axial dimensi ons, and mildly extends towards the left cerebral peduncle. Allowing for differences in technique, th is appears stable compared to the most recent CT. Mild adjacent vasogenic edema extending along the a djacent basal ganglia structures, posterior left subinsular region, and left temporal stem. Layering trace hemorrhage within the third ventricle and bilateral trigones, stable. No evidence of acute intracranial hemorrhage or abnormal extra-axial fluid collections. Mild diffuse parenchymal volume loss. Ventricular caliber is stable with some mass effect upon the tamika dy and trigone of the left lateral ventricle. 1-2 mm right were bowing of the septum pellucidum, stab le. Focus of T2 hyperintensity in the left aspect of the damien is stable, may represent sequelae of a small remote infarct or chronic small vessel changes. Patchy periventricular and deep white matter T2/FLAIR hyperintensities, nonspecific, but suggestive o f chronic small vessel ischemic changes. Major vascular flow voids are preserved. Mastoid air cells and paranasal sinuses are clear. IMPRESSION: Essentially stable left basal ganglia/centrum semiovale subacute to chronic parenchymal hematoma, with stable adjacent mild edema and mass effect. Stable trace layering hemorrhage within th e ventricular trigones and third ventricle. Stable minimal rightward midline shift. No other acute intracranial process. Nonspecific periventricular and deep white matter T2 hyperintens ities, most suggestive of chronic small vessel ischemic changes.
--- NOTE | 2023-07-06 00:59 | PN ---
Date of Progress Note: 07/05/2023 Time Of Service: 1:10 p.m. Subjective: Ms. Goddard is in her room physical therapy, but again she still has significant incoordi nation of the right upper extremity, takes fofelyhg-xu-fya effort for [facility] as she is about to do therapy with the physical therapist. Objective: She did have some fluctuating confusion overnight and worried about worsening vision and loss of vision. She had an MRI of the brain done without contrast today. The study showed essential ly stable left basal ganglia/centrum semiovale, subacute to chronic parenchymal hematoma. There is s table adjacent mild edema and mass effect. There is stable trace layering hemorrhage within the vent ricular trigone and third ventricle. Stable minimal rightward midline shift. There are no acute pro cesses identified. She has nonspecific periventricular deep white matter T2 hyperintensities suggest reyes of chronic small vessel ischemic disease. Physical Examination: Vital Signs: Blood pressure 135/61, pulse 88 up to 99, respiratory rate 16, temperature 97.3, oxygen saturation 94%, weight 185 pounds, height 5 feet 7 inches, BMI 29.0, General: Ms. Goddard is sitting in bed, getting ready to transfer. HEENT: She appears normocephalic, atraumatic. She does have significant incoordination at right upp er extremity, but that is improving slightly. Mild weakness on the right side and some numbness ther e. Otherwise good air movement. Abdomen: Soft. Extremities: No significant clubbing, cyanosis, or edema in the extremities. Laboratory Studies: Complete blood count with differential essentially normal except slightly elevat ed RDW of 17.4, which is stable. INR 1.23. Glucose today ranged from 140 to 199. X-ray imaging is as noted on the right. She was seen by Dr. Evans of Podiatry service with diagnosis of corns and callosities with diabetes mellitus, tinea unguium, and onychogryphosis. She performed mechanical debridement of the nails at the bedside. Progress Made With Physical And Occupational Along With Speech Therapy: Today, with physical therapy , she was able to ambulate 5 feet twice in the parallel bars with moderate assistance and another 8 f eet 4 times with moderate assistance, mobilized by wheelchair 150 feet with standby assistance and ve rbal cues. With occupational therapy, sat at edge of bed, reached across midline with right upper ex tremity to grab phones and stacked them on top of each other. She did that set of exercises twice. She did have some shoulder pain towards the end of her exercises. She did have rest breaks due to fa tigue. With speech therapy, 2 of 3 unrelated pictures were recalled after 3 minutes. After 5 minute s, 1/3 recall. Working memory use for 3 words with 80% accuracy and moderate assistance. Ms. Goddard is making slow but steady progress with her coordination return at right upper extremity a nd some difficulty with cognition. Recent scan of the brain, that is MRI shows improvement in her po st hemorrhage changes. Assessment: Ms. Goddard is an 83-year-old patient in rehabilitation with a left basal ganglia/interna l capsule, intraparenchymal hemorrhage with ventricular extension that has shown some improvement on repeat interval MRI of the brain. She has atrial fibrillation, coronary artery disease, decreased ph ysical function, decreased mobility, diabetes mellitus, dyslipidemia, hypertension, leukocytosis, low er extremity weakness, incoordination along with expressive or receptive aphasia. Plan: 1.Continue with physical, occupational, and speech therapy for 3.5 hours, 5 of 7 days. 2.Her comorbid conditions, which are noted above were managed by continuing her medications has been reviewed. Comorbidities That Are Impacting Rehabilitation: She does have some intermittent confusion especiall y at nighttime. The brain MRI is not showing anything new or expected. She does have back pain and muscle spasms and those have improved with multiple modality treatments including muscle relaxants and nonsteroidal anti-inflammatory medications and neuro modulator. AMRIK/MARLEENL Voice ID: [id number] Report ID: [id number]
[2023-07-07] MEDS: LIDOCAINE 4% PATCH TOP ONE (14:13)
--- NOTE | 2023-07-07 19:36 | PN ---
Date of Progress Note: 07/07/2023 Time Of Service: 1:15 p.m. Subjective: Ms. Goddard is in her room doing therapy and she actually had completed a lap around the unit, did require maximum effort, and did report some significant pain in the back of her neck, where she does have significant kyphosis with neck bent much forward, said that there is some pain up and down the back of the paraspinal regions and she will have a lidocaine patch, apply to that area and h ave her medication regimen adjusted as well. Objective: Again some confusion at night, but no new complaints except from the pain noted in the pa raspinal region. She has no fevers or chills. She has arthralgias and myalgias as noted. No rash a nd no other positives on systems review. Physical Examination: Vital Signs: Blood pressure 129/59, pulse 86, respiratory rate 16, temperature 97.5. General: Ms. Goddard again sitting in a chair beside bed. HEENT: She appears normocephalic, atraumatic. Sclerae anicteric. Oropharynx moist. Musculoskeletal: Neck is bent forward with kyphosis, but otherwise she has had diffuse weakness in t he upper and lower extremities. Neuro: Fatigue. Right-sided incoordination is unchanged, although improving slightly. Laboratory Studies: Complete blood count with differential essentially unremarkable and blood sugars ranged from 131 to 176. No new x-rays or imaging. Medications: She does have gabapentin, dosage increased to 300 mg twice daily to help manage her nicole n. In addition, a lidocaine patch was placed in the upper back, where there is a complaint of more p ain. All other medications are continued unchanged. Progress Made With Physical, Occupational, And Speech Therapy: Today with occupational therapy, uppe r and body dressing was contact guard assistance. Kmswff-rt-tus was at supervision level. Sit-to-st and in addition, supervision level. Partial maximal assistance later on for [id number]-dj-wwxwm transfer. Regarding physical therapy, ambulated 8 feet 5 times with moderate assistance in the parallel bars. She did multiple ivb-qs-ozjnj transfers in parallel bars with minimum contact guard assistance. It w as noted that she did fatigue, but she was standing upright. She did improve, however, in the right lower extremity stepping. Regarding speech, she sequenced forwards in the correct order with 80% acc uracy. She demonstrated ability to correct articulation errors spontaneously by maintaining 95% inte lligibility at conversational level. Ms. Goddard is making fair progress with her physical, occupational, and speech therapy. Somewhat juarez ited by her incoordination from the intraparenchymal bleed affecting the right upper and lower extrem ity in terms of incoordination with loss of balance and gait instability. Assessment: Ms. Goddard is an 83-year-old patient in rehabilitation with left basal ganglia and inter nal capsule intraparenchymal hemorrhage with ventricular extension that again on repeat MRI shows sky e improvement. She has coronary artery disease, atrial fibrillation, decreased mobility, decreased p hysical functioning, diabetes mellitus, dyslipidemia, hypertension, leukocytosis, expressive and rece ptive aphasia. Plan: 1.Continue with physical, occupational, and speech therapy for 3.5 hours, 5 of 7 days. 2.Her comorbid conditions which are listed above are managed by continuing her medications, which do include Lipitor for dyslipidemia, baclofen for muscle spasms in the back, clonidine 0.1 mg as needed for systolic blood pressure greater than 170, Cymbalta or duloxetine for neuropathic pain, gabapenti n has been adjusted to 300 mg twice daily for neuropathic pain. Continue with Synthroid, Cozaar, mag nesium, nifedipine, Seroquel, tramadol as needed. Comorbidities That Are Impacting Her Rehabilitation: Her stroke obviously is the big issue with inco ordination in the right upper and lower extremity. In addition, the cognitive impairment is set at m oderate level making it difficult for her to follow all commands appropriately. In addition, she is very debilitated and requires extended time to regain strength an d endurance. LB/MODL Voice ID: [id number] Report ID: [id number]
[2023-07-07] MEDS: GABAPENTIN 300 MG CAP PO SCH (20:08)
[2023-07-08 04:34] LABS: Absolute Basophils 0.1 K/uL (0-0.5); Absolute Eosinophils 0.5 K/uL (0-0.5); Absolute Lymphocytes (CBC) 2.3 K/uL (0.7-4.9); Absolute Monocytes 1.3 K/uL (0.1-1.3); Absolute Neutrophil 6.2 K/uL (1.8-8.0); Basophils % 0.7 % (0-1.3); Eosinophils % 4.4 % (0-4.4); Hematocrit 34.5 % (36.0-45.0); Hemoglobin 11.7 g/dL (12.0-15.0); Lymphocytes % 21.9 % (15.3-44.8); MCH 30.3 pg (27.0-35.0); MCHC 33.8 g/dL (32.0-36.0); MCV 89.5 fL (80-100); MPV 8.1 fL (7.6-11.3); Monocytes % 12.3 % (3.3-12.3); Neutrophils % 60.7 % (41.7-73.7); Nucleated Red Blood Cells % 0.1 % (0-0); Platelets 264 thou/uL (152-406); RBC Red Blood Cell Count 3.85 M/uL (3.86-4.86); Red Cell Distribution Width 17.3 % (12.1-15.2)
[2023-07-08 04:55] LABS: Albumin 2.6 g/dL (3.4-5.0); Anion Gap 9.3 mEq/L (5.0-15.0); Magnesium 2.3 mg/dL (1.6-2.4); Potassium 4.3 mEq/L (3.5-5.1); Prealbumin 18.5 mg/dL (20-40)
[2023-07-08] MEDS: LIDOCAINE 4% PATCH TOP SCH (08:06)
[2023-07-08] MEDS ORDERED: LIDOCAINE 4% PATCH TOP ONE (13:17)
[2023-07-08] MEDS: CYANOCOBALAMIN 1000MCG/ML INJ IM ONE (16:31)
--- NOTE | 2023-07-08 21:19 | PN ---
Date of Progress Note: 07/08/2023 Time Of Service: 1:25 p.m. Subjective: Ms. Goddard is in her room. Family is at bedside. She is again making slow, but steady progress in her recovery of the stroke which impacted her right upper extremity with incoordination a long with lower extremity as well. She has no new complaints, although there is significant kyphosis with neck pain and she has had pain going up and down the back. She has lidocaine patch in place. At times, she does tend to hold up her head with her hands due to kyphosis. She has significant diff iculty maintaining an extended head position. Review of Systems: No fevers or chills. She has some myalgias in the back of her neck and arthralgias as well and incoo rdination with the right upper extremity from her stroke. All is also unchanged. Otherwise, no feve rs or chills and no other positives on systems review. Physical Examination: Vital Signs: Blood pressure 133/64, pulse 76, respiratory rate of 16, temperature 97.1, oxygen satur ation 94%. General: Ms. Goddard is resting in a chair and speech pathologist is working with her. She does have some pain in the neck and tends to bend the head down and hold the head at the chin with the left duarte nd. Otherwise, the right hand shows some dysmetria is noted. No significant improvement there in lo wer extremities. Also on the right side, some dysmetria. Otherwise, no new deficits in terms of exa mination. Laboratory Studies: White blood cell count 10.3, hemoglobin 11.7, platelets 264. Sodium 133, potass ium 4.3, chloride 97, carbon dioxide 31, BUN 45, creatinine 1.48, which is noted to be slightly eleva nidhi from 1.35 over a week ago. Blood sugars ranged from 125 to 213, calcium 9.7, magnesium 2.3, albu min 2.6, prealbumin 18.5. We note the elevated creatinine, which is slightly worse does reflect some dehydration and hydration will be encouraged around 6 to 8 glasses of water daily. X-ray/imaging: No new x-rays or imaging. Medications: Her medications have been reviewed. She does have lidocaine patch placed in upper back . Otherwise, her medication regimen is unchanged. Progress Made With Physical, Occupational, And Speech Therapy: Today with physical therapy, she did gait training in parallel bars with moderate assistance covering 6 feet 3 times. She mobilized a whe elchair 100 feet twice and she did attempt to ambulate with a rolling walker. She is also using bessie walker and was able to do that 3 times. With occupational therapy, independent with upper body dres sing, partial assistance for lower body dressing, independent with jiashx-iz-fxc at the edge of bed t ransfer, contact guard assistance for jxw-nj-bqzva transfer, independent [facility] with [facility] Bella [facility]. In terms of speech, she scored 14 on the BIMS test which improved from 1 point a nd 22 on SLUMS test which is same as the initial evaluation. Ms. Goddard is making somewhat fair progress with her physical and occupational therapy. Still is sig nificantly limited by the incoordination in the right upper extremity and significant kyphosis at the neck. Assessment: Ms. Goddard is an 83-year-old patient, admitted to the rehabilitation unit with left basa l ganglia and internal capsule intraparenchymal hemorrhage with ventricular extension, who is doing f airly well with her physical, occupational, and speech therapy. She has atrial fibrillation, coronar y artery disease, decreased physical functioning and decreased mobility. She has diabetes mellitus, dyslipidemia, hypertension, leukocytosis along with a stroke-produced expressive and receptive aphasi a. In addition, she has significant kyphosis with neck and lower back pain. Plan: 1.Continue with physical, occupational, and speech therapy for 3.5 hours, 5 of 7 days. 2.She has multiple medications as noted to address her comorbid conditions that will be continued in cluding Synthroid for hypothyroidism, Seroquel for any episodes of confusion, disorientation with psy chosis, and tramadol as needed for pain. Comorbidities That Are Continuing To Impact Rehabilitation: The kyphosis which is moderate is making it difficult for her to extend her head and at times she says she lifts the head with the hand. Lisseth n patch has been applied to that area. Warm and moist heat will also be placed in the neck as needed . Otherwise, she at this point is not able to be home because of her significant deficits and attemp ts now will be made to have her go to custodial to continue with aggressive therapy and give he r more time to recover and be able to return home with family. LB/MODL Voice ID: [id number] Report ID: [id number]
--- NOTE | 2023-07-09 13:19 | P.RH.PN ---
Estimated Length of Stay: 15 Expected Discharge Date: 07/10/23 Discharge Disposition Plan: Home Family Support: Yes Assisted Goal: Mobility, Transfers, Self Care Vital Signs: Last Vital Signs Temp 97.8 F 07/09/23 08:00 Pulse 87 07/09/23 08:00 Resp 14 07/09/23 08:00 BP 113/60 07/09/23 08:00 Pulse Ox 95 07/09/23 08:00 Laboratory: Laboratory Last Values WBC 10.30 thou/uL (4.3-10.9) 07/08/23 04:00 RBC 3.85 M/uL (3.86-4.86) L 07/08/23 04:00 Hgb 11.7 g/dL (12.0-15.0) L 07/08/23 04:00 Hct 34.5 % (36.0-45.0) L 07/08/23 04:00 MCV 89.5 fL (80-100) 07/08/23 04:00 MCH 30.3 pg (27.0-35.0) 07/08/23 04:00 MCHC 33.8 g/dL (32.0-36.0) 07/08/23 04:00 RDW 17.3 % (12.1-15.2) H 07/08/23 04:00 Plt Count 264 thou/uL (152-406) 07/08/23 04:00 MPV 8.1 fL (7.6-11.3) 07/08/23 04:00 Neutrophils % 60.7 % (41.7-73.7) 07/08/23 04:00 Lymphocytes % 21.9 % (15.3-44.8) 07/08/23 04:00 Monocytes % 12.3 % (3.3-12.3) 07/08/23 04:00 Eosinophils % 4.4 % (0-4.4) 07/08/23 04:00 Basophils % 0.7 % (0-1.3) 07/08/23 04:00 Absolute Neutrophils 6.2 K/uL (1.8-8.0) 07/08/23 04:00 Absolute Lymphocytes 2.3 K/uL (0.7-4.9) 07/08/23 04:00 Absolute Monocytes 1.3 K/uL (0.1-1.3) 07/08/23 04:00 Absolute Eosinophils 0.5 K/uL (0-0.5) 07/08/23 04:00 Absolute Basophils 0.1 K/uL (0-0.5) 07/08/23 04:00 PT 13.5 SECONDS (9.5-12.5) H 06/27/23 06:52 INR 1.23 06/27/23 06:52 Sodium 133 mEq/L (136-145) L 07/08/23 04:00 Potassium 4.3 mEq/L (3.5-5.1) 07/08/23 04:00 Chloride 97 mEq/L (98-107) L 07/08/23 04:00 Carbon Dioxide 31 mEq/L (21-32) 07/08/23 04:00 Anion Gap 9.3 mEq/L (5.0-15.0) 07/08/23 04:00 BUN 45 mg/dL (7-18) H 07/08/23 04:00 Creatinine 1.48 mg/dL (0.55-1.02) H 07/08/23 04:00 Est GFR (CKD-EPI) 35 ml/min (=/>90) L 07/08/23 04:00 Glucose 173 mg/dL (74-106) H 07/08/23 04:00 POC Glucose 192 mg/dL (65-120) H 07/09/23 11:14 Calcium 9.7 mg/dL (8.5-10.1) 07/08/23 04:00 Magnesium 2.3 mg/dL (1.6-2.4) 07/08/23 04:00 Albumin 2.6 g/dL (3.4-5.0) L 07/08/23 04:00 Prealbumin 18.5 mg/dL (20-40) L 07/08/23 04:00 TSH 4.730 uIU/mL (0.358-3.740) H 07/04/23 07:09 Free T4 1.35 ng/dL (0.76-1.46) 07/04/23 07:09 Free T3 pg/mL 2.03 pg/mL (2.18-3.98) L 07/04/23 07:09 Total T3 0.92 ng/mL (0.80-2.00) 07/04/23 07:09 Urine Color Cancelled 07/01/23 17:45 Urine Clarity Cancelled 07/01/23 17:45 Urine pH Cancelled 07/01/23 17:45 Ur Specific [place] Cancelled 07/01/23 17:45 Glucose (UA)(Auto) Cancelled 07/01/23 17:45 Urine Ketones Cancelled 07/01/23 17:45 Urine Blood Cancelled 07/01/23 17:45 Urine Nitrite Cancelled 07/01/23 17:45 Urine Bilirubin Cancelled 07/01/23 17:45 Urine Urobilinogen Cancelled 07/01/23 17:45 Ur Leukocyte Esterase Cancelled 07/01/23 17:45 Urine RBC Cancelled 07/01/23 17:45 Urine Red Cell Clumps Cancelled 07/01/23 17:45 Urine WBC Cancelled 07/01/23 17:45 Urine WBC Clumps Cancelled 07/01/23 17:45 Ur Squamous Epith Cells Cancelled 07/01/23 17:45 U Non-Squamous Epi Cells Cancelled 07/01/23 17:45 Ur Transition Epith Cell Cancelled 07/01/23 17:45 Ur Renal Epithelial Cell Cancelled 07/01/23 17:45 Calcium Carbonate Cryst Cancelled 07/01/23 17:45 Calcium Oxalate Crystal Cancelled 07/01/23 17:45 Leucine Crystals Cancelled 07/01/23 17:45 Cystine Crystals Cancelled 07/01/23 17:45 Uric Acid Crystals Cancelled 07/01/23 17:45 Triple Phos Crystals Cancelled 07/01/23 17:45 Tyrosine Crystals Cancelled 07/01/23 17:45 Unidentified Crystals Cancelled 07/01/23 17:45 Amorphous Crystals Cancelled 07/01/23 17:45 Urine Bacteria Cancelled 07/01/23 17:45 Hyaline Casts Cancelled 07/01/23 17:45 Granular Casts Cancelled 07/01/23 17:45 Waxy Casts Cancelled 07/01/23 17:45 RBC Casts Cancelled 07/01/23 17:45 WBC Casts Cancelled 07/01/23 17:45 Urine Mucus Cancelled 07/01/23 17:45 Urine Trichomonas Cancelled 07/01/23 17:45 Ur Yeast w Hyphae Cancelled 07/01/23 17:45 Urine Yeast (Budding) Cancelled 07/01/23 17:45 Urine Sperm Cancelled 07/01/23 17:45 Ur Oval Fat Bodies Cancelled 07/01/23 17:45 Urine Culture Reflexed Cancelled 07/01/23 17:45 Urine Total Protein Cancelled 07/01/23 17:45 Urine Ascorbic Acid Cancelled 07/01/23 17:45 Urine Fat Cancelled 07/01/23 17:45 Weight: 185 lb Wound Present: No Closed Surgical Incision Present: No Negative Pressure Wound Therapy Present: No Physician Update: Pain is 7/10 to the left arm and leg on multiple pain medica tion modalities. BIMS 14, SLUMS 22, fatigue is limiting. Only walks 3-4 steps at a time. WC 150', able to open bottle of water. Met 3/5 terminal make up operator goals. Comment: dexacom lt arm Summary: Patient's care plan and terminal make up operator goals have been reviewed and revised as necessary. Please see the Rehabilitation Signature page for all necessary signatures.
[2023-07-12] MEDS: clonazePAM 0.5 MG TAB PO PRN (01:45)
[2023-07-12] MEDS: BACLOFEN 10 MG TAB PO SCH (13:07)
[2023-07-12] MEDS ORDERED: BACLOFEN 10 MG TAB PO SCH (15:00)
[2023-07-12 19:03] VITALS: O2SAT 90
--- NOTE | 2023-07-12 22:48 | PN ---
Date of Progress Note: 07/12/2023 Time Of Service: 1:40 p.m. Subjective: Ms. Goddard is resting in bed. She is somewhat more sleepy today. The staff noted she o nly slept about 2 hours last night and she did receive some clonazepam 0.5 mg and baclofen 10 mg and she has been somewhat sleepy during the day today. She did alert and follows simple commands. She d id have, of course, weakness in the right upper extremity, which has affected with incoordination and some mild weakness. Review of Systems: She is resting in bed. She did have some pain in the right arm when it was moved, still some complai nts there. Otherwise, seems to be somewhat sleepy, but denies any fevers or chills and no other posi tives other than mentioned. Physical Examination: Vital Signs: Blood pressure 121/59, pulse 73, respiratory rate 16, temperature 97.1, oxygen saturati on 93%. General: Ms. Goddard is resting in bed. The right arm does have a bandage. She still has incoordina tion noted as she tries move that arm, to a lesser extent in the right lower extremity. The left seth e is moving equally well without any significant restrictions. Laboratory Studies: No new laboratory studies except blood glucose ranged from 132 to 213. X-ray/imaging: No new x-rays or imaging. Medications: Her medications have been reviewed and remained unchanged. Progress Made With Her Physical, Occupational, And Speech Therapy: Today, with physical therapy, she mobilizes the wheelchair 50 feet with contact guard assistance and subsequently [id number] twice w ith minimum assistance. She did snjecu-dl-dya transfer with gjmumwwq-ge-cmxunae assistance. She did report up to 10/10 pain in the lower back. With occupational therapy, sat at edge of bed transfer w ith a Bella lift of maximum assistance due to pain. Rfcgpl-io-mbr done, maximum assistance. Sit-to-s tand done with maximum assistance. With speech therapy, she recalled 2 of 3 unrelated words after 3 minutes given maximum verbal cues. She was 100% intelligible with conversational level speech. Ms. Goddard did seem to slide back somewhat today compared to the previous days. She did not have muc h sleep last night and that is a possibility . We will adjust her medications to give the baclofen as needed at night, but we will try to hold any sedating medications such as the benzodiazep ine. Assessment: Currently Ms. Goddard is an 83-year-old patient is set to discharge to assisted in the morning. 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 Interval studies, imaging shows improvement. She is not doing as well today as she di d in the last few days, potentially due to little sleep last night. 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 Plan: 1.Continue physical, occupational, and speech therapy for now. 2.Continue all comorbid condition much quicker now. 3.Consider discharge if she is improving by tomorrow. Comorbidities That Are Impacting Rehabilitation: Difficulty with sleep, making it difficult for her to get restorative sleep and to be sleepy during the day. In addition, she has a kyphosis as noted a nd at times she has to hold her head up with her hand due to the extended overuse of the neck muscles to keep her head from falling forward. AMRIK/TRACY Voice ID: [id number] Report ID: [id number]
[2023-07-13 07:17] VITALS: TEMP 96.8
[2023-07-13 10:43] VITALS: BP 129/60
== END 2023-07-13 12:04 | DRG 57 ==
LOC: 5TH 12:45
PROVIDERS: ADMIT Psychiatry & Neurology Neurology with Special Qualifications in Child Neurology; ATTEND Psychiatry & Neurology Neurology with Special Qualifications in Child Neurology
PROC: 0HDMXZZ Extraction of Right Foot Skin, External Approach (ICD-10-PCS; principal; 2023-06-28)
PROC: 0HBRXZZ Excision of Toe Nail, External Approach (ICD-10-PCS; 2023-07-05)
PROC: 0HBRXZZ Excision of Toe Nail, External Approach (ICD-10-PCS; 2023-07-05)
PROC: 0HBRXZZ Excision of Toe Nail, External Approach (ICD-10-PCS; 2023-07-05)
PROC: 0HBRXZZ Excision of Toe Nail, External Approach (ICD-10-PCS; 2023-07-05)
PROC: 0HBRXZZ Excision of Toe Nail, External Approach (ICD-10-PCS; 2023-07-05)
PROC: 0HBRXZZ Excision of Toe Nail, External Approach (ICD-10-PCS; 2023-07-05)
PROC: 0HBRXZZ Excision of Toe Nail, External Approach (ICD-10-PCS; 2023-07-05)
PROC: 0HBRXZZ Excision of Toe Nail, External Approach (ICD-10-PCS; 2023-07-05)
DX: I69.351 Hemiplegia and hemiparesis following cerebral infarction affecting right dominant side (principal); N39.0 Urinary tract infection, site not specified; I69.320 Aphasia following cerebral infarction; M40.295 Other kyphosis, thoracolumbar region; M40.202 Unspecified kyphosis, cervical region; B35.1 Tinea unguium; L60.2 Onychogryphosis; L84 Corns and callosities; I69.391 Dysphagia following cerebral infarction; R27.8 Other lack of coordination; I10 Essential (primary) hypertension; E78.5 Hyperlipidemia, unspecified; E11.9 Type 2 diabetes mellitus without complications; I48.0 Paroxysmal atrial fibrillation; K21.9 Gastro-esophageal reflux disease without esophagitis; M19.90 Unspecified osteoarthritis, unspecified site; I25.10 Atherosclerotic heart disease of native coronary artery without angina pectoris; I73.9 Peripheral vascular disease, unspecified; R00.1 Bradycardia, unspecified; R53.81 Other malaise; R13.10 Dysphagia, unspecified; E78.00 Pure hypercholesterolemia, unspecified; I70.91 Generalized atherosclerosis; I25.2 Old myocardial infarction; Z79.01 Long term (current) use of anticoagulants
CPT/HCPCS: 36415; 70450; 70551; 80048; 81001; 82040; 82947; 83735; 84132; 84134; 84439; 84443; 84480; 84481; 85025; 85610; 87086; 87088; 92507; 92523; 92526; 92610; 94010; 97110; 97112; 97116; 97129; 97161; 97165; 97530; 97542; J1815; J2001; J3420; J7030; J7040

== ENCOUNTER 2023-07-24 10:54 | Emergency (ER) | payer OTHER ==
[2023-07-24] MEDS ORDERED: ETOMIDATE 20 MG/10 ML VIAL IV ONE (10:55)
[2023-07-24] MEDS ORDERED: DOPAMINE/D5W 400 MG/250 ML BAG IV ONE (11:09)
[2023-07-24 11:15] LABS: Absolute Basophils 0.1 K/uL (0-0.5); Absolute Lymphocytes (CBC) 1.9 K/uL (0.7-4.9); Absolute Monocytes 0.7 K/uL (0.1-1.3); Absolute Neutrophil 12.4 K/uL (1.8-8.0); Basophils % 0.3 % (0-1.3); Eosinophils % 0.1 % (0-4.4); Hematocrit 38.5 % (36.0-45.0); Hemoglobin 12.4 g/dL (12.0-15.0); Lymphocytes % 12.7 % (15.3-44.8); MCHC 32.3 g/dL (32.0-36.0); MPV 8.7 fL (7.6-11.3); Monocytes % 4.3 % (3.3-12.3); Neutrophils % 82.6 % (41.7-73.7); Platelets 380 thou/uL (152-406); RBC Red Blood Cell Count 4.14 M/uL (3.86-4.86); Red Cell Distribution Width 19.7 % (12.1-15.2)
[2023-07-24 11:33] LABS: Troponin High Sensitivity 2562.4 pg/mL (<58.9)
--- NOTE | 2023-07-24 11:36 | RAD REPORT ---
EXAM DESCRIPTION: RAD - Chest Single View - 07/24/2023 11:29 am CLINICAL HISTORY: md discretion COMPARISON: <Comparisons> FINDINGS: Lines: None. Lungs: No evidence of edema or pneumonia. Pleural: No significant pleural effusions or pneumothorax. Cardiac: Cardiomegaly. Mediastinum: Within normal limits. Bones: No acute fractures. Other: Defibrillator pad overlies the heart. IMPRESSION: No acute cardiopulmonary disease.
[2023-07-24 11:40] LABS: PT Prothrombin Time 13.1 SECONDS (9.5-12.5); Protime INR 1.2
[2023-07-24] MEDS ORDERED: NA CHLORIDE 0.9% 0 ML ONE (11:41)
[2023-07-24] MEDS ORDERED: FAMOTIDINE 20 MG/2 ML VIAL IV ONE (11:41)
--- NOTE | 2023-07-24 11:41 | ER ---
Nurse's Notes [facility] Name: Susannah Goddard Age: 83 yrs Sex: Female : 1940 Arrival Date: 07/24/2023 Time: 10:54 Bed 3 Private MD: Diagnosis: Persistent atrial fibrillation-with svr;Altered mental status, unspecified;Dyspnea;Bradycardia, unspecified;ST elevation (STEMI) myocardial infarction involving left anterior descending coronary artery-lateral wall mi;Acute kidney failure, unspecified;Type 2 diabetes mellitus with hyperglycemia;Elevated white blood cell count Presentation: 07/23 10:50 Chief complaint: EMS states: pt was unresponsive at NH, last normal at breakfast , on iw scene pt HR in the 20's, pt arrives to ER paced at 70 bpm , pt responsive to pain, 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 Claudio oddd at bedside. 10:50 Method Of Arrival: EMS: [facility] iw 10:50 Coronavirus screen: Client presents with at least one sign or symptom that may indicate iw coronavirus-19. Ebola Screen: Patient negative for fever greater than or equal to 101.5 degrees Fahrenheit, and additional compatible Ebola Virus Disease symptoms Patient denies exposure to infectious person. Patient denies travel to an Ebola-affected area in the 21 days before illness onset. No symptoms or risks identified at this time. Initial Sepsis Screen: Does the patient meet any 2 criteria? Altered Mental Status. Does the patient have a suspected source of infection?. Risk Assessment: Do you want to hurt yourself or someone else? Unable to obtain. Onset of symptoms was July 24, 2023. 11:04 Acuity: MARIANA 1 iw Triage Assessment: 10:50 General: Appears ill, Behavior is listless. 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 - Social history:: Smoking status: unknown. Screenin:00 [facility] ED Fall Risk Assessment (Adult) History of falling in the last 3 months, iw including since admission Confusion or Disorientation Yes (5 pts) Intoxicated or Sedated Yes (3 pts) Impaired Gait Yes (1 pt) Mobility Assist Device Used Yes (1 pt) Altered Elimination Yes (1 pt) Score/Fall Risk Level 3 or more points = High Risk. Abuse screen: Denies threats or abuse. Denies injuries from another. Nutritional screening: No deficits noted. Assessment: 10:50 General: Appears ill, Behavior is listless. Pain: Unable to use pain scale. Patient is iw unresponsive. Neuro: Level of Consciousness is confused, listless, Oriented to none. Cardiovascular: Capillary refill is > 3 seconds in bilateral fingers. Respiratory: Respiratory effort is labored. Derm: Skin is fragile, is thin, Skin is Skin temperature is cool. 10:51 Reassessment: pt appears to be apneic, Code Blue called , assisted respirations via iw BVM, pt responsive to BVM after approx 1 minute, pt awakens , pulling at ambu bag , RT setting up for intubation, pt alert and talking, pt refuses intubation. 10:55 Reassessment: pt more alert, able to follow commands, placed on NRB, 100% SPO2. iw Vital Signs: 11:00 BP 109 / 76; Pulse 34; Resp 18; Temp 97.8; Pulse Ox 100% on Non-rebreather mask; Weight iw 75 kg; 12:17 BP 117 / 52; Pulse 57; Resp 19; Pulse Ox 100% on Non-rebreather mask; iw ED Course: 10:52 Arm band placed on. iw 10:55 Inserted saline lock: 22 gauge in left forearm, using aseptic technique. aa5 10:55 Initial lab(s) drawn, by me, sent to lab. Inserted saline lock: 18 gauge in right EJ, aa5 using aseptic technique. ,using aseptic technique. IV inserted by Dr. Snyder. 10:55 EKG done, by ED staff, reviewed by Bryan Snyder MD. hb 10:58 Patient arrived in ED. mc5 11:03 Palma Jack, RN is Primary Nurse. iw 11:04 Bryan Snyder MD is Attending Physician. kb 11:05 Triage completed. iw 11:20 Assisted provider with central line placement. Set up central line tray. Triple lumen iw line placed in right femoral. Line placed by Bryan Snyder MD Placement verified by CXR, blood return, Dressed with Tape, Tegaderm, Blood was collected. Patient tolerated well. Patient \T\ family education about procedure, CLABSI prevention and S/S of infection? Yes. Time-out/Briefing performed prior to start of procedure? Yes. Was handwashing/sanitizing done immediately prior to procedure? Yes. Was patient positioned to in a way to prevent air embolism? Yes. Was procedure site sterilized? Yes, with chlorhexidine. Was the site allowed to dry? Yes. Was local anesthetic and/or sedation utilized? Yes. During the procedure, did the Practitioner(s) maintain a sterile field? Yes. Were unused ports clamped during insertion? Yes. Was a 2nd qualified MD obtained after 3 unsuccessful insertion attempts? N/A. Was blood aspirated from each lumen? Yes. After the procedure, did the Practitioner(s) clean the site and apply a sterile dressing? Yes. 11:31 XRAY Chest (1 view) In Process Unspecified. EDMS 11:33 Notified ED physician of a critical lab result(s). TROP 2562.4. hb 11:34 initiated transfer to [facility] with Ryland. 5 11:55 notified Ryland with [facility] of STEMI. 5 12:10 Dr Snyder requested [facility] for transport- 22 min ETA. mc5 12:18 patient accepted to [facility] be [address] Grady, MOT given mc5 by Michael Lara. 12:25 faxed MOT and face sheet to [facility] and [facility]. [facility] Administered Medications: 11:30 Drug: DOPamine 5 mcg/kg/min IV at per protocol Per protocol Route: IV; Rate: per iw protocol; Site: right femoral; 13:02 Follow up: IV Status: Infusion continued upon transfer iw 11:50 Drug: Heparin ([place]-Bolus with thrombolytic) - HEParin IVP 60 units/kg IVP once; Max 4000 iw units {Co-Signature: aa5 (Jessica Glaser RN).} Route: IVP; Site: right femoral; 11:55 Follow up: Response: No adverse reaction iw 11:51 Drug: Heparin ([place] Drip) 12 units/kg/[place] - ([place] [address] units, D5W IV 500 ml) IV at iw calculated rate Per protocol; Max initial rate 1000 units/hr {Co-Signature: aa5 (Jessica Glaser RN).} Route: IV; Rate: calculated rate; Site: right femoral; 13:02 Follow up: IV Status: Infusion continued upon transfer iw 11:59 Not Given (Physician Discretion): aspirinchewable tablet 324 mg PO once; 81 mg tablets iw x 4 12:15 Drug: Aspirin NE Suppository 300 mg NE once Route: NE; iw 13:00 Follow up: Response: No adverse reaction iw 12:55 Not Given (pt unable to swallow ): [id number] mg PO once iw 14:06 Not Given (pt transported prior to adminn): cefepime1 grams IVPB at 200 ml/hr once over iw 30 mins; (mix in NS 100 mL) 14:06 Not Given (Other Intervention Used): [id number] mg IVP once; dilute with 10 mL 0.9% iw NaCl; give over 2 minutes Outcome: 11:40 ER care complete, transfer ordered by . chandler 13:02 Transferred by helicopter [facility] . to [facility], Transfer form iw completed. X-rays sent w/ patient. 13:02 Condition: stable 13:02 Discharge instructions given to family, Instructed on the need for transfer, Demonstrated understanding of instructions, 13:02 Patient left the ED. iw Signatures: Dispatcher [employer] Jelena Lora, BELT BUCKLE MAKER-C BELT BUCKLE MAKER-Ckb Bryan Snyder MD MD cha Williams, Irene, RN LAURE Jessica Glaser, RN RN aa5 Katia Aguilar RN RN [facility] [place] [id number] Jessica Glaser RN aa5 Corrections: (The following items were deleted from the chart) 11:30 11:00 BP 109 / 76; Pulse 34bpm; Resp 18bpm; Pulse Ox 100% Non-rebreather mask; iw iw
--- NOTE | 2023-07-24 11:41 | EDPHYS ---
Physician Documentation [facility] Name: Susannah Goddard Age: 83 yrs Sex: Female : 1940 Arrival Date: 07/24/2023 Time: 10:54 Bed 3 Private MD: ED Physician Bryan Snyder HPI: 07/23 11:29 This 83 yrs old Female presents to ER via Unassigned with complaints of chandler Altered Mental Status. 11:29 The patient presents with confusion, decreased mental status, decreased responsiveness. chandler Onset: The symptoms/episode began/occurred just prior to arrival, this morning. Possible causes: CVA or TIA, low blood sugar. Associated signs and symptoms: Pertinent positives: combativeness, confusion, gait abnormality, headache, lightheadedness, palpitations, shortness of breath. Current symptoms: In the emergency department the patient's symptoms have improved, moderately. Patient's baseline: Neuro: alert and fully oriented. It is unknown whether or not the patient has had similar symptoms in the past. 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 - Social history:: Smoking status: unknown. ROS: 11:31 Constitutional: Positive for body aches, malaise, chandler 11:31 Cardiovascular: Positive for palpitations, 11:31 Respiratory: Positive for shortness of breath, 11:31 MS/extremity: Positive for pain, swelling, tenderness, of the left calf and left berkowitz, Exam: 11:31 Constitutional: This is a well developed, well nourished patient who is awake, alert, chandler and in no acute distress. Head/Face: Normocephalic, atraumatic. Eyes: Pupils equal round and reactive to light, extra-ocular motions intact. Lids and lashes normal. Conjunctiva and sclera are non-icteric and not injected. Cornea within normal limits. Periorbital areas with no swelling, redness, or edema. ENT: Nares patent. No nasal discharge, no septal abnormalities noted. Tympanic membranes are normal and external auditory canals are clear. Oropharynx with no redness, swelling, or masses, exudates, or evidence of obstruction, uvula midline. Mucous membranes moist. Neck: Trachea midline, no thyromegaly or masses palpated, and no cervical lymphadenopathy. Supple, full range of motion without nuchal rigidity, or vertebral point tenderness. No Meningismus. Chest/axilla: Normal chest wall appearance and motion. Nontender with no deformity. No lesions are appreciated. Abdomen/GI: Soft, non-tender, with normal bowel sounds. No distension or tympany. No guarding or rebound. No evidence of tenderness throughout. Back: No spinal tenderness. No costovertebral tenderness. Full range of motion. Female : Normal external genitalia. 11:31 Cardiovascular: Rate: actual rate is 34 bpm, Rhythm: regular, Pulses: Pulses are 4+ in bilateral radial, brachial, femoral, popliteal, posterior tibial and and dorsalis pedis arteries.. Heart sounds: normal, Edema: is not appreciated, JVD: is noted bilaterally, to the angle of the jaw, 11:31 ECG was reviewed by the Attending Physician. 11:53 ECG was reviewed by the Attending Physician. [facility] 11:54 ECG was reviewed by the Attending Physician. [facility] Vital Signs: 11:00 BP 109 / 76; Pulse 34; Resp 18; Temp 97.8; Pulse Ox 100% on Non-rebreather mask; Weight iw 75 kg; 12:17 BP 117 / 52; Pulse 57; Resp 19; Pulse Ox 100% on Non-rebreather mask; iw Procedures: 11:55 Central Line: the site was prepped with Betadine, in sterile fashion, a triple lumen chandler catheter was inserted, in the right femoral vein, in 1 attempts. placement was verified, by blood return, the site was dressed with 4X4s, using sterile technique, the patient tolerated the procedure, well. MDM: 11:04 Patient medically screened. kb 11:36 Differential diagnosis: Anemia asthma, Bronchitis CHF exacerbation, Chronic Obstructive chandler Pulmonary Disease Myocardial Infarction pulmonary edema, Pulmonary Embolism reactive airway disease, Sepsis Unstable Angina. Antibiotic administration: cefepime. Differential Diagnosis altered mental status, sepsis. Differential Diagnosis: CVA, electrolyte abnormality, hypoglycemia, overdose, pneumonia, seizure, sepsis, TIA, UTI, volume depletion. Immunization status: Pneumococcal vaccine: within last 5 years. Influenza vaccine: within last 5 years. Data reviewed: vital signs, nurses notes, EMS record, lab test result(s), EKG, radiologic studies, CT scan, plain films. Consideration of Admission/Observation Escalation of care including admission/observation considered. I considered the following discharge prescriptions or medication management in the emergency department Medications were administered in the Emergency Department. See MAR. Independent interpretation of the following test(s) in the Emergency Department EKG: See my EKG interpretation above. Test considered but Not performed: Ultrasound no 2 d echo. Historians other than the Patient: EMS: ems well informed. Care significantly affected by the following chronic conditions: Diabetes, Hypertension, Congestive Heart Failure, Obesity, Liver Disease. 07/23 11:01 Order name: Basic Metabolic Panel; Complete Time: 12:00 [facility] 07/23 11:01 Order name: CBC with Diff; Complete Time: 12: [facility] 07/23 11:01 Order name: Troponin HS; Complete Time: 12:00 [facility] 07/23 11:28 Order name: PT-INR; Complete Time: 12:00 [facility] 07/23 11:28 Order name: Blood Culture Adult (2) [facility] 07/23 11:39 Order name: NT PRO-BNP; Complete Time: 12:00 EDMS 07/23 11:01 Order name: XRAY Chest (1 view); Complete Time: 12:00 [facility] 07/23 11:01 Order name: Cardiac monitoring; Complete Time: : [facility] 07/23 11:01 Order name: EKG - Nurse/Tech; Complete Time: 11: [facility] 07/23 11:01 Order name: IV Saline Lock; Complete Time: 11: [facility] 07/23 11:01 Order name: Labs collected and sent; Complete Time: 11: 07/23 11:01 Order name: O2 Per Protocol; Complete Time: 11: 07/23 11:01 Order name: O2 Sat Monitoring; Complete Time: 11: [facility] 07/23 11:28 Order name: Central Line Kit; Complete Time: 11:30 [facility] EC:53 Rate is 49 beats/min. Rhythm is irregularly irregular. QRS Hensley is Normal. ME interval chandler is prolonged. QRS interval is prolonged at 170 msec. QT interval is prolonged at 505 msec. No Q waves. T waves are Normal. ST Segment is elevated in leads I, aVL, V2. Clinical impression: Atrial Fibrillation and Lateral WV - acute. Interpreted by me. Reviewed by me. 11:54 Rate is 43 beats/min. Rhythm is irregularly irregular. QRS Hensley is Normal. ME interval chandler is prolonged. QRS interval is prolonged at 174 msec. No Q waves. T waves are Normal. ST Segment is elevated in leads I, aVL, V2, V3, V4. Clinical impression: Acute WV, Atrial Fibrillation, and Lateral WV - acute. Interpreted by me. Reviewed by me. Administered Medications: 11:30 Drug: DOPamine 5 mcg/kg/min IV at per protocol Per protocol Route: IV; Rate: per iw protocol; Site: right femoral; 13:02 Follow up: IV Status: Infusion continued upon transfer iw 11:50 Drug: Heparin ([place]-Bolus with thrombolytic) - HEParin IVP 60 units/kg IVP once; Max 4000 iw units {Co-Signature: aa5 (Jessica Glaser RN).} Route: IVP; Site: right femoral; 11:55 Follow up: Response: No adverse reaction iw 11:51 Drug: Heparin ([place] Drip) 12 units/kg/[place] - ([place] [address] units, D5W IV 500 ml) IV at iw calculated rate Per protocol; Max initial rate 1000 units/hr {Co-Signature: aa5 (Jessica Glaser RN).} Route: IV; Rate: calculated rate; Site: right femoral; 13:02 Follow up: IV Status: Infusion continued upon transfer iw 11:59 Not Given (Physician Discretion): aspirinchewable tablet 324 mg PO once; 81 mg tablets iw x 4 12:15 Drug: Aspirin ME Suppository 300 mg ME once Route: ME; iw 13:00 Follow up: Response: No adverse reaction iw 12:55 Not Given (pt unable to swallow ): [id number] mg PO once iw 14:06 Not Given (pt transported prior to adminn): cefepime1 grams IVPB at 200 ml/hr once over iw 30 mins; (mix in NS 100 mL) 14:06 Not Given (Other Intervention Used): clfulvieoz30 mg IVP once; dilute with 10 mL 0.9% iw NaCl; give over 2 minutes Disposition: 11:56 Critical Care:. chandler Disposition Summary: 07/24/23 11:40 Transfer Ordered Notes: Transfer Location: [facility] chandler Reason: Higher level of care chandler Condition: Critical chandler Problem: new chandler Symptoms: have improved chandler Accepting Physician: to [facility] icu(07/24/23 13:02) iw Diagnosis - Persistent atrial fibrillation - with svr chandler - Altered mental status, unspecified chandler - Dyspnea chandler - Bradycardia, unspecified chandler - ST elevation (STEMI) myocardial infarction involving left anterior descending chandler coronary artery - lateral wall mi - Acute kidney failure, unspecified chandler - Type 2 diabetes mellitus with hyperglycemia chandler - Elevated white blood cell count chandler Forms: - Medication Reconciliation Form chandler - SBAR form chandler Critical care time excluding procedures: 11:56 Critical care time: Bedside Care: 30 minutes, Consultation: 15 minutes, Family chandler Intervention: 10 minutes. Total time: 55 minutes Signatures: Dispatcher [employer] EDMS Jelena Capps, ALCIDES-Eloy MCGRATH-Bryan Johnson MD MD cha Williams, Irene RN LAURE iw Jessica Glaser RN RN aa5 Jessica Glaser RN aa5 Corrections: (The following items were deleted from the chart) 11:01 11:01 Chest Single View+RAD.RAD.BRZ ordered. EDMS EDMS 11:28 11:28 PROTIME (+INR)+COAG.LAB.BRZ ordered. EDMS EDMS 11:28 11:28 BLOOD CULTURE*+BA.LAB.BRZ ordered. EDMS EDMS 11:28 11:28 LACTATE+C.LAB.BRZ ordered. EDMS EDMS 11:39 11:28 PROBNP+C.LAB.BRZ ordered. EDMS EDMS 11:43 11:[address] [facility] icu chandler chandler 11:54 11:31 Rate is 49 beats/min. Rhythm is regular. QRS interval is prolonged at 170 msec. chandler QT interval is prolonged at 505 msec. No Q waves. T waves are Normal. ST Segment is depressed in leads II, III, aVF. Clinical impression: Atrial Fibrillation. Interpreted by me. Reviewed by me. chandler 12:04 11:[facility] chandler chandler 12:27 12:04 [facility] chandler chandler 12:55 11:28 Rivera ordered. chadnler iw 12:57 11:28 Head C Spine Cap Wo Con+CT.RAD.BRZ ordered. EDMS EDMS 13:02 12:[facility] chandler iw
[2023-07-24] MEDS ORDERED: CEFEPIME 1 GM/VIAL ONE (11:42)
[2023-07-24] MEDS ORDERED: CLOPIDOGREL 75 MG TABLET ONE (11:47)
[2023-07-24] MEDS ORDERED: HEPARIN/D5W 25,000 UNIT/500 ML BAG IV ONE (11:47)
[2023-07-24] MEDS ORDERED: ASPIRIN 81 MG CHEWABLE TABLET ONE (11:47)
[2023-07-24] MEDS ORDERED: ASPIRIN 300 MG/SUPP ONE (12:06)
[2023-07-24 16:02] VITALS: TEMP 97.8; O2SAT 100
[2023-07-24 16:35] VITALS: BP 117/52
--- NOTE | 2023-07-26 12:47 | EKG ---
Test Date: 2023-07-24 Test Time: 11:39:05 Attacher: COCO MEASUREMENT RESULTS: Intervals: Rate: 43 LA: QRSD: 174 QT: 512 QTc: 432 Manning: P: LA: QRS: -55 T: 21 INTERPRETIVE STATEMENTS: Wide QRS rhythm with occasional premature ventricular complexes Right bundle branch block Left anterior fascicular block Bifascicular block Septal infarct, age undetermined Lateral injury pattern ACUTE [place] / STEMI Abnormal ECG Compared to ECG 07/24/2023 10:55:33 Left anterior fascicular block now present Bifascicular block now present Left-axis deviation no longer present Myocardial infarct finding still present Electronically Signed On 07-26-23 12:42:06 CDT by Lawrence Recinos
--- NOTE | 2023-07-26 12:47 | EKG ---
Test Date: 2023-07-24 Test Time: 10:55:33 Tool Analyst: COCO MEASUREMENT RESULTS: Intervals: Rate: 49 NC: QRSD: 170 QT: 560 QTc: 505 Combes: P: NC: QRS: -68 T: 59 INTERPRETIVE STATEMENTS: Wide QRS rhythm with occasional premature ventricular complexes Left axis deviation Right bundle branch block Septal infarct, age undetermined Lateral injury pattern ACUTE MA / STEMI Abnormal ECG Compared to ECG 06/15/2023 10:26:26 Uncertain supraventricular rhythm now present Ventricular premature complex(es) now present Left-axis deviation now present Right bundle-branch block now present Myocardial infarct finding now present Electronically Signed On 07-26-23 12:42:19 CDT by Lawrence Recinos
--- NOTE | 2023-07-26 12:47 | EKG ---
Test Date: 2023-07-24 Test Time: 11:39:52 Heel Sander: COCO MEASUREMENT RESULTS: Intervals: Rate: 41 NJ: 136 QRSD: 174 QT: 542 QTc: 447 Alliance: P: 89 NJ: 136 QRS: -54 T: 33 INTERPRETIVE STATEMENTS: Suspect unspecified pacemaker failure Marked sinus bradycardia Left axis deviation Right bundle branch block Septal infarct, age undetermined Lateral injury pattern ACUTE [place] / STEMI Abnormal ECG Compared to ECG 07/24/2023 11:39:05 Left-axis deviation now present Uncertain supraventricular rhythm no longer present Ventricular premature complex(es) no longer present Left anterior fascicular block no longer present Electronically Signed On 07-26-23 12:42:03 CDT by Lawrence Recinos
== END 2023-07-24 13:02 | disposition short-term general hospital (02) ==
LOC: ER 10:54
PROC: 06HM33Z Insertion of Infusion Device into Right Femoral Vein, Percutaneous Approach (ICD-10-PCS; principal; 2023-07-24)
DX: I21.09 ST elevation (STEMI) myocardial infarction involving other coronary artery of anterior wall (principal); I48.19 Other persistent atrial fibrillation; E11.65 Type 2 diabetes mellitus with hyperglycemia; N17.9 Acute kidney failure, unspecified; D72.829 Elevated white blood cell count, unspecified; R06.00 Dyspnea, unspecified; R00.1 Bradycardia, unspecified; I10 Essential (primary) hypertension; E78.00 Pure hypercholesterolemia, unspecified; Z86.73 Personal history of transient ischemic attack (TIA), and cerebral infarction without residual deficits
CPT/HCPCS: 96365; 93005 ×3; 87040; 85025; 80048; 36415; 85610; 84484; 83880; 71045; 96375; 99285; 36556; J1644; J1265; J0692

== ENCOUNTER 2023-08-08 13:32 | Emergency (ER) | payer OTHER ==
[2023-08-08 14:12] LABS: Absolute Basophils 0.1 K/uL (0-0.5); Absolute Eosinophils 0.1 K/uL (0-0.5); Absolute Lymphocytes (CBC) 0.9 K/uL (0.7-4.9); Absolute Monocytes 0.5 K/uL (0.1-1.3); Absolute Neutrophil 13.3 K/uL (1.8-8.0); Basophils % 0.4 % (0-1.3); Eosinophils % 0.4 % (0-4.4); Hemoglobin 10.6 g/dL (12.0-15.0); Lymphocytes % 6.3 % (15.3-44.8); MCH 29.6 pg (27.0-35.0); MCHC 31.1 g/dL (32.0-36.0); MCV 95.1 fL (80-100); MPV 8.4 fL (7.6-11.3); Monocytes % 3.1 % (3.3-12.3); Neutrophils % 89.8 % (41.7-73.7); Nucleated Red Blood Cells % 0.3 % (0-0); Platelets 227 thou/uL (152-406); RBC Red Blood Cell Count 3.57 M/uL (3.86-4.86); Red Cell Distribution Width 22.5 % (12.1-15.2)
--- NOTE | 2023-08-08 14:19 | RAD REPORT ---
EXAM DESCRIPTION: RAD - Chest Single View - 08/08/2023 2:03 pm CLINICAL HISTORY: DYSPNEA COMPARISON: Chest Single View dated 07/24/2023; Chest Single View dated 06/15/2023; Abdomen 1 View (KUB ) dated 10/27/2022; Chest Single View dated 07/20/2022 FINDINGS: Lines: Right subclavian approach PICC with tip overlying the proximal SVC. Pacemaker . Lungs: Partial obscuration of the left lung base. Pleural: Blunted left costophrenic angle. Cardiac: Cardiomegaly. Mediastinum: Within normal limits. Bones: No acute fractures. Other: None IMPRESSION: Underpenetration versus small left pleural effusion and either atelectasis and/or pneumo alda. The right lung is clear.
[2023-08-08 14:30] LABS: Albumin 2.2 g/dL (3.4-5.0); Albumin/Globulin Ratio 0.5 (1.1-1.8); Anion Gap 10.8 mEq/L (5.0-15.0); Bilirubin Direct 1.3 mg/dL (0-0.2); Bilirubin Indirect, Calculated 1.1 mg/dL (0.2-0.8); Bilirubin Total 2.4 mg/dL (0.2-1.0); Globulin 4.8 g/dL (2.3-3.5); Magnesium 2.7 mg/dL (1.6-2.4); Potassium 3.8 mEq/L (3.5-5.1)
[2023-08-08 14:48] LABS: Troponin High Sensitivity 2663.1 pg/mL (<58.9)
[2023-08-08 16:53] LABS: Anisocytosis 2+; Blood Morphology Comment NOTED (NOT SEEN); Ovalocytes 1+; Platelet Estimate ADEQ; Poikilocytosis 1+; Polychromasia 1+; White Blood Cell Scan OK (OK)
--- NOTE | 2023-08-08 17:07 | EDPHYS ---
Physician Documentation [facility] Name: Susannah Goddard Age: 83 yrs Sex: Female : 1940 Arrival Date: 08/08/2023 Time: 13:32 Bed 4 Private MD: ED Physician Hood Hassan HPI: 08/07 17:10 This 83 yrs old Female presents to ER via EMS with complaints of Low SpO2. rt 17:10 Patient presents to the ED with reported [facility] oxygen levels at [facility]. Was rt apparently some 9%. EMS arrived, was in the mid 90s. Of note, patient did have a recent cardiac catheterization procedure which was only partially able to be stented. The patient denies any complaints currently, however, history is limited due to baseline dementia. Symptoms are moderate in severity, no other aggravating or alleviating factors.. 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 - Infectious Disease History:: Denies. - Family history:: not pertinent. - Social history:: Smoking status: Patient denies any tobacco usage or history of. ROS: 17:10 Unable to obtain ROS due to baseline dementia, rt Exam: 17:10 Constitutional: This is a well developed, well nourished patient who is awake, alert, rt and in no acute distress. Head/Face: Normocephalic, atraumatic. Chest/axilla: Normal chest wall appearance and motion. Nontender with no deformity. No lesions are appreciated. Cardiovascular: Regular rate and rhythm with a normal S1 and S2. No gallops, murmurs, or rubs. Normal PMI, no JVD. No pulse deficits. Respiratory: Lungs have equal breath sounds bilaterally, clear to auscultation and percussion. No rales, rhonchi or wheezes noted. No increased work of breathing, no retractions or nasal flaring. Abdomen/GI: Soft, non-tender, with normal bowel sounds. No distension or tympany. No guarding or rebound. No evidence of tenderness throughout. Skin: Warm, dry with normal turgor. Normal color with no rashes, no lesions, and no evidence of cellulitis. MS/ Extremity: Pulses equal, no cyanosis. Neurovascular intact. Full, normal range of motion. Neuro: Awake and alert, GCS 15, oriented to person, place, time, and situation. Cranial nerves II-XII grossly intact. Motor strength 5/5 in all extremities. Sensory grossly intact. Cerebellar exam normal. Normal gait. 17:10 ECG was reviewed by the Attending Physician. Vital Signs: 14:10 BP 159 / 92; Pulse 72; Resp 18; Temp 97.1; Pulse Ox 100% on R/A; iw 15:06 BP 122 / 67; Pulse 77; Resp 18; Pulse Ox 100% on R/A; ld1 17:02 BP 120 / 74; Pulse 84; Resp 18; Pulse Ox 100% on R/A; ld1 18:47 BP 129 / 73; Pulse 79; Resp 18; Pulse Ox 100% on R/A; ld1 20:59 BP 121 / 73; Pulse 81; Resp 16 S; Temp 97.4; Pulse Ox 98% on 2 lpm NC; lg3 MDM: 13:46 Patient medically screened. rt 17:10 Differential Diagnosis NSTEMI, cardiac event, pneumonia, pneumothorax, pulmonary edema. rt Data reviewed: vital signs, nurses notes, lab test result(s), EKG, radiologic studies. Consideration of Admission/Observation Escalation of care including admission/observation considered. I discussed at length with the patient's , daughter, son the EKG, lab findings to include findings of an NSTEMI. Patient clearly states that she does not wish to be admitted or transferred, [facility] Do not believe that she has decision-making capacity, but, the is the surrogate decision maker. They state that they wish to maximize the quality of life over quantity of life and states that transferring the patient would diminish the patient's quality of life with no guarantees of improvement of functional status. After long discussion of risks and benefits, they elected to take the patient home, to follow-up as an outpatient and to avoid aggressive measures at this time. Believe that this is reasonable given the patient's premorbid status as well as previously expressed wishes.. Independent interpretation of the following test(s) in the Emergency Department X-Ray: My interpretation is No pneumonia similar to potation of x-ray images. Care significantly affected by the following chronic conditions: Coronary disease. Counseling: I had a detailed discussion with the patient and/or guardian regarding the historical points, exam findings, and any diagnostic results supporting the discharge/admit diagnosis, lab results, radiology results. 08/07 13:51 Order name: Basic Metabolic Panel; Complete Time: 14:50 rt 08/07 13:51 Order name: CBC with Diff; Complete Time: 17:04 rt 08/07 13:51 Order name: LFT's; Complete Time: 14:50 rt 08/07 13:51 Order name: Magnesium; Complete Time: 14:50 rt 08/07 13:51 Order name: NT PRO-BNP; Complete Time: 14:50 rt 08/07 13:51 Order name: Troponin HS; Complete Time: 14:50 rt 08/07 16:54 Order name: CBC Smear Scan; Complete Time: 17:04 EDMS 08/07 13:51 Order name: XRAY Chest (1 view); Complete Time: 14:19 rt 08/07 13:51 Order name: Cardiac monitoring; Complete Time: 15:03 rt 08/07 13:51 Order name: EKG - Nurse/Tech; Complete Time: 15:03 rt 08/07 13:51 Order name: IV Saline Lock; Complete Time: 14:07 rt 08/07 13:51 Order name: Labs collected and sent; Complete Time: 14:07 rt 08/07 13:51 Order name: O2 Per Protocol; Complete Time: 13:53 rt 08/07 13:51 Order name: O2 Sat Monitoring; Complete Time: 13:53 rt EC:10 Rate is 78 beats/min. Rhythm is regular, Normal Sinus Rhythm with No ectopy, rt Nonspecific idioventricular block. Left axis deviation noted. CA interval is normal. No Q waves. Administered Medications: No medications were administered Disposition Summary: 08/08/23 17:06 Discharge Ordered Notes: Location: Home rt Problem: an acute exacerbation rt Symptoms: are unchanged rt Condition: Fair rt Diagnosis - Elevated troponin rt Followup: rt - With: Private Physician - When: As needed - Reason: Discharge Instructions: - Discharge Summary Sheet rt - Heart Attack rt Forms: - Medication Reconciliation Form rt - Thank You Letter rt - Antibiotic Education rt - Prescription Opioid Use rt - Patient Portal Instructions rt - Leadership Thank You Letter rt Signatures: Dispatcher [employer] EDPalma Serrano, RN RN iw Marlene Kay RN RN ld1 Hood Hassan MD MD rt Corrections: (The following items were deleted from the chart) 13:52 13:52 BASIC METABOLIC PANEL+C.LAB.BRZ ordered. EDMS EDMS 13:52 13:52 CBC+H.LAB.BRZ ordered. EDMS EDMS 13:52 13:52 HEPATIC FUNCTION+C.LAB.BRZ ordered. EDMS EDMS 13:52 13:52 MAGNESIUM+C.LAB.BRZ ordered. EDMS EDMS 13:52 13:52 PROBNP+C.LAB.BRZ ordered. EDMS EDMS 13:52 13:52 Troponin High Sensitivity+C.LAB.BRZ ordered. EDMS EDMS
--- NOTE | 2023-08-08 17:07 | ER ---
Nurse's Notes [facility] Name: Susannah Goddard Age: 83 yrs Sex: Female : 1940 Arrival Date: 08/08/2023 Time: 13:32 Bed 4 Private MD: Diagnosis: Elevated troponin Presentation: 08/07 14:06 Chief complaint: EMS states: toned out for low SPO2 , EMS reports they warmed up her iw hands and Sp O 2 came up to 90's, pt uses home O2 PRN. Pt is 100% on RA upon arrival to ER. Coronavirus screen: At this time, the client does not indicate any symptoms associated with coronavirus-19. Ebola Screen: Patient negative for fever greater than or equal to 101.5 degrees Fahrenheit, and additional compatible Ebola Virus Disease symptoms Patient denies exposure to infectious person. Patient denies travel to an Ebola-affected area in the 21 days before illness onset. No symptoms or risks identified at this time. Initial Sepsis Screen: Does the patient meet any 2 criteria? No. Patient's initial sepsis screen is negative. Does the patient have a suspected source of infection? No. Patient's initial sepsis screen is negative. Risk Assessment: Do you want to hurt yourself or someone else? Patient reports no desire to harm self or others. Onset of symptoms was August 08, 2023. 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 - Infectious Disease History:: Denies. - Family history:: not pertinent. - Social history:: Smoking status: Patient denies any tobacco usage or history of. Screenin:00 [facility] ED Fall Risk Assessment (Adult) History of falling in the last 3 months, ld1 including since admission No falls in past 3 months (0 pts). Abuse screen: Denies threats or abuse. Denies injuries from another. Nutritional screening: No deficits noted. Tuberculosis screening: No symptoms or risk factors identified. Assessment: 16:00 General: Appears in no apparent distress. comfortable, Behavior is cooperative, ld1 anxious. Pain: Denies pain. Neuro: Level of Consciousness is awake, alert, Oriented to none. Cardiovascular: Capillary refill < 3 seconds Patient's skin is warm and dry. Rhythm is sinus rhythm. Respiratory: Airway is patent Respiratory effort is even, unlabored. GI: Abdomen is round non-distended. 16:00 : No signs and/or symptoms were reported regarding the genitourinary system. EENT: No ld1 signs and/or symptoms were reported regarding the EENT system. Derm: No signs and/or symptoms reported regarding the dermatologic system. Derm: No signs and/or symptoms reported regarding the dermatologic system. 17:46 Reassessment: Dr. Hassan spoke with BOTTOM BRUSHER at [facility], facility will attempt to iw make arrangements to place pt on hospice care prior to accepting pt back to facility. 18:08 Reassessment: [facility] ARRANGED. [facility] TRANSPORT PENDING WITH FAMILY TO bp SIGN DNR ON ARRIVAL. 18:25 Reassessment: facility working on van transportation, will call back when finalized. iw 18:47 Reassessment: Pt waiting on transfer to [facility]. Hospice set up with nursing 1 facility. Family aware. 18:51 Reassessment: Transport coming from [facility] - ETA 1 hour. ld1 Vital Signs: 14:10 BP 159 / 92; Pulse 72; Resp 18; Temp 97.1; Pulse Ox 100% on R/A; iw 15:06 BP 122 / 67; Pulse 77; Resp 18; Pulse Ox 100% on R/A; ld1 17:02 BP 120 / 74; Pulse 84; Resp 18; Pulse Ox 100% on R/A; ld1 18:47 BP 129 / 73; Pulse 79; Resp 18; Pulse Ox 100% on R/A; ld1 20:59 BP 121 / 73; Pulse 81; Resp 16 S; Temp 97.4; Pulse Ox 98% on 2 lpm NC; lg3 ED Course: 13:44 Patient arrived in ED. iw 13:45 Hood Hassan MD is Attending Physician. rt 13:57 Palma Jack, RN is Primary Nurse. iw 14:05 XRAY Chest (1 view) In Process Unspecified. EDMS 14:07 Triage completed. iw 14:09 Arm band placed on. iw 14:09 Accessed PICC line. using per hospital protocol. Clean \T\ dry. Dressing intact. Good iw blood return. Flushes easily. 16:00 Patient has correct armband on for positive identification. Placed in gown. Bed in low ld1 position. Call light in reach. Side rails up X2. personnel monitor on. Pulse ox on. NIBP on. Door closed. Noise minimized. Warm blanket given. 16:00 No provider procedures requiring assistance completed. ld1 21:02 Patient did not have IV access during this emergency room visit. lg3 Administered Medications: No medications were administered Medication: 16:00 VIS not applicable for this client. ld1 Outcome: 17:06 Discharge ordered by MD. rt 21:01 Discharged to custodial. lg3 21:01 Condition: stable 21:01 Discharge instructions given to patient, custodial, Instructed on discharge instructions, follow up and referral plans. Demonstrated understanding of instructions, follow-up care, 21:02 Patient left the ED. lg3 Signatures: Dispatcher [employer] EDPalma Serrano RN RN iw Yadiel Giles RN Ifrah Win RN RN lg3 Marlene Kay, RN RN ld1 Hood Hassan MD MD rt Corrections: (The following items were deleted from the chart) 14:11 14:10 BP 159 / 2; Pulse 72bpm; Resp 18bpm; Pulse Ox 100% RA; Temp 97.1F; iw iw
[2023-08-08 21:41] VITALS: BP 121/73; TEMP 97.4; O2SAT 98
== END 2023-08-08 21:02 | disposition home or self-care (01) ==
LOC: ER 13:32
DX: R79.89 Other specified abnormal findings of blood chemistry (principal); I10 Essential (primary) hypertension; I48.91 Unspecified atrial fibrillation; E11.9 Type 2 diabetes mellitus without complications; F03.90 Unspecified dementia, unspecified severity, without behavioral disturbance, psychotic disturbance, mood disturbance, and anxiety; Z86.73 Personal history of transient ischemic attack (TIA), and cerebral infarction without residual deficits
CPT/HCPCS: 36415; 71045; 80048; 80076; 83735; 83880; 84484; 85025; 93005; 99285